=== PATIENT | female | born 1940 | race Caucasian/White ===

== ENCOUNTER → 2016-09-02 | Outpatient (CLI) | payer OTHER ==
[~2016-09-02] MED LIST: ASPI81TA28 PO; CINA0.42 PO; FURO-85 PO; GFNSR600 PO; GLIP10TA9 PO; IPRA1AER2 INH; LEVO125T5 PO; LISI10TA PO; LISI20TA3 PO; LVQ750 PO; METF1000 PO; MULT-506 PO; POTA-327 PO; PRLSR20 PO
--- NOTE | 2016-09-02 12:14 | DIAGNOSTIC IMAGING REPORT ---
VIDEO SWALLOW HISTORY: DYSPHAGIA TECHNIQUE: Video fluoroscopic evaluation of swallowing was performed in the AP and lateral projections by the speech pathology staff. The patient is fed nectar-thick and thin liquid barium, a barium coated wafer, and barium pudding. FLUOROSCOPY TIME: 2.2 minutes. A cine loop submitted. COMPARISON STUDY: None. FINDINGS: There are a few episodes of silent aspiration with the thin liquid barium due to a delay of the hyoid excursion/epiglottic deflection. No additional episodes of aspiration identified with the thicker barium consistencies. IMPRESSION: 1. A few episodes of aspiration with the thin liquid barium only. 2. Please see the speech pathologist report for detailed findings and recommendations. Electronically signed by: Raj Frost M.D. 09/02/2016 12:13 PM Dictated Date/Time: 09/02/2016 12:09 PM
--- NOTE | 2016-09-02 13:25 | SWALLOWING EVALUATION ---
HISTORY: This 75 year-old woman, from, was referred for a VFSS at [facility] in order to rule out aspiration and identify safe consistencies for optimal oral intake. The patient reports that she had an episode several months ago where she felt a burning sensation in her throat that occurred overnight while semi reclined in her recliner chair at home. She has since felt this episode has contributed to issues surrounding her voice and swallowing. She reported she had and ENT consult 2-3 months ago and was diagnosed with laryngitis, but this has not resolved. The patient has a PMH significant for Diabetes, hypertension, sepsis, pneumonia, and uterine cancer. She was also noted to have a mild mandibular tremor. She felt as though this was not normal, but denied feeling cold or anxious. BP was normal and BSGs were taken by Nursing, all WNL. Speech was clear. Currently the patient's diet level is regular. PROCEDURE: The patient was seen in the Radiology Department of [facility] for the VFSS. Cursory examination of the oral cavity revealed adequate dentition. Movement of the articulators was WNL. The patient was seated upright in a wheelchair and was viewed in both the Anterior-Posterior (A-P) and Lateral planes. Volitional phonation exercises completed in the A-P plane revealed bilateral vocal fold movement. Vocal quality was noted to be strained/strangled with a high pitch. Volume overall was low. In the lateral plane, the patient was given the following boluses: 1 tsp. thin liquid barium x 2, single swallow thin liquid barium self-presented from a cup x2, sequential swallows of thin liquid barium self-presented from a straw, 1 tsp. nectar-thick liquid barium, single swallow nectar-thick liquid barium self-presented from a cup, 1 tsp. barium pudding, and 1 club cracker with barium paste. The patient was then repositioned into the A-P plane and given the following boluses: 1 tsp. nectar-thick liquid barium and 1 tsp. barium pudding. RESULTS: Oral Stage: Lip closure was adequate. The patient was able to maintain a cohesive liquid bolus upon command without any lateral or premature spillage. Mastication was mildly slow as was bolus transit. There was retention lining the tongue and palate after the swallow. The initiation of the pharyngeal swallow was delayed, and occurred when the bolus head reached the pyriforms. Pharyngeal Stage: Soft palate elevation was complete. Laryngeal elevation revealed partial superior movement of the thyroid cartilage and partial approximation of the arytenoids to the epiglottic base. Anterior hyoid excursion was partially reduced. Epiglottic deflection was complete. Laryngeal vestibular closure was incomplete as evidenced by a narrow column of contrast being located in the vestibule at the height of the swallow. The pharyngeal stripping wave was present and complete. Pharyngeal contraction was complete. The opening the pharyngoesophageal segment was partially reduced with distention and duration of the opening, with partial bolus flow obstruction. Tongue base retraction was mildly reduced, with a trace column of contrast being located between the tongue base and pharyngeal wall during the swallow. There was a trace retention located in the valleculae and pyriforms after the swallow. Laryngeal penetration was noted with thin liquids. The was an episode of SILENT aspiration below the vocal folds during the bolus hold task and the patient had difficulty generating a throat clear/strong cough to fully clear. There was another episode of SILENT aspiration with serial swallows of thin from a straw, however it is suspected that some of this may be the aspirated liquid that was not fully cleared from the initial episode. No other aspiration was identified. Aspiration is attributed to her delayed swallow reflex. No aspiration noted with small cup sips. Esophageal Stage: Complete esophageal clearance was noted. In the lateral view, there was evidence of a prominent cricopharyngeus impression that is suggestive of reflux. However, reflux was not noted during this study. SUMMARY/RECOMMENDATIONS: This patient presents with mild oral-pharyngeal dysphagia. In addition, it is suspected the patient may have episodes of esophageal dysfunction. The following is recommended: 1. Regular diet and thin liquids. 2. Aspiration precautions, NO straws. Fully upright for meals and for 30 minutes after meals are complete. HOB elevated to 30 degrees at all times, to include while asleep. Stringent oral care to include brushing all surfaces of the mouth and tongue prior to and after each meal, and before bed. 3. Consider a follow up appointment with ENT due to prolonged strained/strangled voice and atypical pitch levels for this patient. 4. Consider home health or outpatient [facility] services for follow through of safe swallow strategies and voice therapy as appropriate per ENT consult. 5. Follow up with PCP. Consider further testing and or medication management with a GI consult for suspected reflux. A summary of the results and recommendations was discussed with the patient and understanding was verbalized immediately following the study. Thank you for referral of this patient. Please contact me at if any additional information is needed.
== END | disposition home or self-care (01) ==
LOC: C.RAD 11:04
PROVIDERS: ATTEND Nurse Practitioner
DX: R13.19 Other dysphagia (principal)

== ENCOUNTER → 2016-10-04 | Day surgery (SDC) | payer OTHER ==
[2016-09-24 10:17] VITALS: Ht 154.9 cm; Wt 90.9 kg
[~2016-10-04] VITALS: Ht 154.9 cm; Wt 90.9 kg
[~2016-10-04] MED LIST changes: +ATROPINE SULFATE 0.1 MG/ML 5ML SYR IV PRN; -CINA0.42 PO; +EpHEDrine SULFATE INJ 50 MG/ML AMP IV PRN; -GFNSR600 PO; -IPRA1AER2 INH; +LEVO125T4 PO; -LEVO125T5 PO; +LIDOCAINE HCL 2% 2 ML VIAL (20MG/ML) ONE; -LISI10TA PO; -LVQ750 PO; -MULT-506 PO; +PROPOFOL IV EMULSION 10 MG/ML 20 ML VIAL IV ONE; +SODIUM CHLORIDE 0.9% 500ML 500 ML IV ONE
--- NOTE | 2016-10-04 09:24 | Endo History and Physical ---
History & Physical Date of Service: Oct 04, 2016. Chief Complaint: Referring Physician: History of Present Illness 76 yo presenting for EGD for hoarseness and one episode of pill getting stuck during swallowing. No GERD symptoms, and normal MBBS Past Medical History Diabetes, Osteoporosis, Arthritis, Hypertension Past Surgical History Hx Cardiac Surgery: No Hx Internal Defibrillator: No Hx Pacemaker: No Hx Abdominal Surgery: Yes (JULIA BSO) Hx of Implantable Prosthesis: No Hx Post-Op Nausea and Vomiting: No Hx Cancer Surgery: No Hx Thoracic Surgery: No Hx Orthopedic: Yes (LT/RT KVNG, LT/RT CTR) Hx Urinary Tract Surgery: No Family History None Social History Smoking Status: Never Smoker Hx Substance Use: No Hx Alcohol Use: No Allergies Coded Allergies: No Known Allergies (Verified , 10/04/16) Current Medications Reported Home Medications Medications Dose Route/Sig Max Daily Dose Days Date Category Dose Instructions Prilosec (Omeprazole) 20 Mg Capcr 20 Mg PO DAILY 09/24/16 Reported NEW MEDICATION - PT HAS NOT STARTED YET Levothyroxine Sodium 125 Mcg Tab 1 Tab PO QAM 09/24/16 Reported Aspirin Ec (Aspirin) 81 Mg Tab 81 Mg PO QAM 09/24/16 Reported Prinivil (Lisinopril) 20 Mg Tab 20 Mg PO QAM 09/24/16 Reported Glucotrol (Glipizide) 10 Mg Tab 0.5 Tab PO BID 08/21/12 Reported TAKE THIS MEDICATION 30 MINUTES BEFORE A MEAL. Glucophage (Metformin Hcl) 1,000 Mg Tab 0.5 Tab PO BID 08/21/12 Reported Lasix (Furosemide) 20 Mg Tab 40 Mg PO QAM PRN 07/13/12 Reported Klor-Con (Potassium Chloride) 10 Meq Tabcr 10 Meq PO DAILY PRN 07/13/12 Reported Vital Signs Weight (Kilograms): 90.91 Height (Feet): 5 Height (Inches): 1 Physical Exam General Appearance: WD/WN Respiratory/Chest: Auscultation: breath sounds normal, CTA except as noted Cardiovascular: Apical Impulse: not displaced Heart Auscultation: RRR, normal S1 Abdomen: Bowel Sounds: normal Inspection & Palpation: soft, non-distended Assessment and Plan Plan for EGD for further evaluation Dilation if necessary
--- NOTE | 2016-10-04 10:07 | GI REPORT ---
Procedure Date: 10/04/2016 9:42 AM Procedure: Upper GI endoscopy Indications: Globus sensation-Hoarseness. Medicines: General Anesthesia Complications: No immediate complications. Estimated blood loss: None. Estimated Blood Loss: Estimated blood loss: none. Procedure: Pre-Anesthesia Assessment: - Pre-Anesthesia Assessment: - Prior to the procedure, a History and Physical was performed, and patient medications, allergies and sensitivities were reviewed. The patient's tolerance of previous anesthesia was reviewed. Please see [employer] for complete details. - The risks and benefits of the procedure and the sedation options and risks were discussed with the patient. All questions were answered and informed consent was obtained. - Patient identification and proposed procedure were verified prior to the procedure by the physician and the nurse. The procedure was verified in the pre-procedure area in the procedure room. After obtaining informed consent, the endoscope was passed carefully and meticuously under direct vision and only advanced when the lumen was clearly identified, C02 insuflation was utilized throughout the entirity of the procedure. Throughout the procedure, the patient's blood pressure, pulse, and oxygen saturations were monitored continuously. After obtaining informed consent, the endoscope was passed under direct vision. Throughout the procedure, the patient's blood pressure, pulse, and oxygen saturations were monitored continuously. The scope was introduced through the mouth, and advanced to the second part of duodenum. The upper GI endoscopy was accomplished without difficulty. The patient tolerated the procedure well. Findings: The nasopharynx was normal. A small hiatus hernia was present. The entire examined stomach was normal. The examined duodenum was normal. Impression: - Normal nasopharynx. - Small hiatus hernia. - Normal stomach. - Normal examined duodenum. - No specimens collected. Recommendation: - Discharge patient to home (with escort). - Return to referring physician as previously scheduled. - Consider Zantac qhs if having morning hoarseness that is worse. - Follow up with ENT for voice eval and videostroboscopy as recommended previously. Wade Weiss MD 10/04/2016 10:07:08 AM This report has been signed electronically. Note Initiated On: 10/04/2016 9:42 AM I attest to the content of the Intraoperative Record and orders documented therein, exceptions below
--- NOTE | 2016-10-04 10:11 | Discharge Instructions ---
Endoscopy Patient Instructions Date / Procedure(s) Performed Oct 04, 2016. EGD Allergy Information Coded Allergies: No Known Allergies (Verified , 10/04/16) Discharge Date / Findings Oct 04, 2016. Normal Exam Normal oropharynx Consider following up with ENT for voice eval and videostroboscopy as previously recommended. Consider Zantac at night Medication Instructions Stopped Medication(s): Aspirin last taken on 10/03/16 Provider Instructions Activity Restrictions - No exercising or heavy lifting for 24 hours. - Do not drink alcohol the day of the procedure. - Do not drive a car or operate machinery until the day after the procedure. - Do not make any important decisions or sign important papers in 24 hours after the procedure. Following Day: - Return to full activity which may include returning to work/school. Diet Start your diet with liquids and light foods (jello, soup, juice, toast). Then eat your usual diet if not nauseated. Treatment For Common After Affects For mild abdominal pain, bloating, or excessive gas: - Rest - Eat lightly - Lie on right side Follow-Up Information Follow-up with [facility] as scheduled Anesthesia Information What You Should Know You have had a procedure that required some medicine to reduce anxiety and discomfort. This treatment is called moderate sedation. After receiving the treatment, you may be sleepy, but you will be able to breathe on your own. The effects of the treatment may last for several hours. Follow these instructions along with Activity/Diet recommendations noted above: * Do NOT do anything where dizziness or clumsiness would be dangerous. * Rest quietly at home today, then you can be up and about tomorrow. * Have a responsible person stay with you the rest of today. * You may have had an I.V. today. If so, you may take the dressing off later today. Recommendations Call your doctor if: * Trouble breathing * Continuous vomiting for more than 24 hours * Temperature above 101 degrees * Severe abdominal pain or bloating * Pain not relieved by pain medicine ordered * There is increased drainage or redness from any incision * A large amount of rectal bleeding greater than 2-3 tablespoons. (If you had a polyp/s removed or have hemorrhoids, a small amount of blood - from the rectum is to be expected.) * You have any unanswered questions or concerns. IN THE EVENT OF A SERIOUS EMERGENCY, GO TO THE NEAREST EMERGENCY ROOM Your discharge instructions were prepared by provider Wade Weiss. Patient Instructions Signature Page Angeline Fagan Patient (or Guardian) Signature/Date: I have read and understand the instructions given to me by my caregivers. Caregiver/RN/Doctor Signature/Date: The above-named patient and/or guardian has received patient instructions on this date. + Original Patient Signature Page (only) stays with chart. Please make copy for patient.
--- NOTE | 2016-10-04 10:11 | Anesthesiology Progress Note ---
Anesthesia Post Op Note Date & Time Oct 04, 2016 at 10:11 Vital Signs Vital Signs Past 12 Hours Date Time Temp Pulse Resp B/P (MAP) Pulse Ox O2 Delivery O2 Flow Rate FiO2 10/04/16 09:30 36.5 70 18 138/66 (90) 99 Room Air Notes Mental Status: alert / awake / arousable, participated in evaluation Pt Amnestic to Procedure: Yes Nausea / Vomiting: adequately controlled Pain: adequately controlled Airway Patency, RR, SpO2: stable & adequate BP & HR: stable & adequate Hydration State: stable & adequate Anesthetic Complications: no major complications apparent
[2016-10-04 10:59] VITALS: BP 144/67; PULSE 70; O2SAT 97
== END | disposition home or self-care (01) ==
LOC: C.GI 08:02
PROVIDERS: ATTEND Internal Medicine
DX: R49.0 Dysphonia (principal); R13.10 Dysphagia, unspecified; K44.9 Diaphragmatic hernia without obstruction or gangrene; E11.9 Type 2 diabetes mellitus without complications; M81.0 Age-related osteoporosis without current pathological fracture; M19.90 Unspecified osteoarthritis, unspecified site; I10 Essential (primary) hypertension; Z79.82 Long term (current) use of aspirin; Z79.84 Long term (current) use of oral hypoglycemic drugs; Z90.710 Acquired absence of both cervix and uterus; Z96.643 Presence of artificial hip joint, bilateral; E78.5 Hyperlipidemia, unspecified; K21.9 Gastro-esophageal reflux disease without esophagitis; E03.9 Hypothyroidism, unspecified; E66.9 Obesity, unspecified; Z92.21 Personal history of antineoplastic chemotherapy; Z98.41 Cataract extraction status, right eye; Z98.42 Cataract extraction status, left eye; Z85.9 Personal history of malignant neoplasm, unspecified

== ENCOUNTER 2019-06-20 12:45 | Inpatient (IN) ==
--- NOTE | 2019-06-20 12:53 | Emergency Department Note ---
History of Present Illness General Chief complaint: Shortness of Breath/Dyspnea Source: patient and EMS Mode of arrival: EMS Limitations: altered mental status History of Present Illness This [facility] I did talk to them upon arrival. She typically does not wear oxygen. She had a bronchitis type picture and developed a right lower lobe pneumonia according to EMS they start her on oxygen at 3 L. When they arrived they increased her oxygen and now she is in the mid 90s and does not appear to be any distress she has had some baseline dementia and is unable to answer questions related to that. No fall or trauma. There is been no travel or any known food exposure however they did do coag te sting which is pending. Other history is not reliably obtainable Home Medications Home Medications Medication Instructions Recorded Confirmed Type aspirin 81 mg PO QAM 02/03/18 06/20/19 History furosemide 20 mg PO BID 02/03/18 06/20/19 History glipizide 10 mg PO TIDM 02/03/18 06/20/19 History lisinopril 10 mg PO QAM 02/03/18 06/20/19 History magnesium oxide 400 mg PO QAM 02/03/18 06/20/19 History omeprazole 20 mg PO QAM 02/03/18 06/20/19 History acetaminophen [Tylenol] 650 mg PO BID 06/20/19 06/20/19 History acetaminophen [Tylenol] 650 mg PO QID PRN 06/20/19 06/20/19 History azithromycin [Zithromax] 500 mg PO DAILY@0130 06/20/19 06/20/19 History baclofen 5 mg PO BID 06/20/19 06/20/19 History cholecalciferol (vitamin D3) 125 mcg PO QAM 06/20/19 06/20/19 History [Vitamin D3] dextromethorphan-guaifenesin 10 ml PO Q6H PRN 06/20/19 06/20/19 History famotidine 20 mg PO HS 06/20/19 06/20/19 History levothyroxine 150 mcg PO QAM 06/20/19 06/20/19 History loratadine [Claritin] 10 mg PO HS 06/20/19 06/20/19 History multivit,stress formula-zinc 1 tab PO QAM 06/20/19 06/20/19 History [Stress Formula with Zinc] sennosides-docusate sodium 1 tab-cap PO BID 06/20/19 06/20/19 History [Senna-S] sitagliptin [Januvia] 25 mg PO QAM 06/20/19 06/20/19 History sodium chloride [Saline Nasal Mist] 2 spray INTRANASAL QID 06/20/19 06/20/19 History Allergies Allergy/AdvReac Type Severity Reaction Status Date / Time No Known Allergies Allergy Intermediate Verified 01/30/18 10:04 Past Med/Surg History Medical History Alzheimer's dementia (Chronic) Chronic venous stasis dermatitis of both lower extremities CKD (chronic kidney disease) stage 3, GFR 30-59 ml/min Dementia Diabetes (Chronic) H/O kidney disease (Chronic) Hypertension (Chronic) Hypothyroid (Chronic) Morbid obesity Surgical History History of hip surgery (Chronic) b/l KVNG History of hysterectomy S/P carpal tunnel release (Chronic) S/P hernia repair (Chronic) Family History Other Family history non-contributory Social History Preferred Language: Uzbek Communication Ability: Effective Visual Impairment: Limited Hearing Ability: Normal Child Nutrition Director Required: No Beliefs That Will Affect Care: None marital status: Current Living Situation: Alone Current Living Situation Comment: Health aide 3x/wk; daughter frequently stops in current occupational status: retired Feels Safe at Home: Yes Smoking Status: Unknown if ever smoked Hx Alcohol Use: No Hx Substance Use: No Review of Systems Unobtainable due to cognitive status Physical Exam Vital Signs Vital Signs - 24 hr 06/20/19 12:50 06/20/19 13:15 06/20/19 13:30 Temperature 36.3 C L Temperature Source Oral Pulse Rate 89 105 H 71 Pulse Rate from SpO2 Sensor 73 Pulse Rhythm Regular Pulse Strength Normal Respiratory Rate 24 24 24 Respiratory Effort / Characteristics Non-Labored Spontaneous Respiratory Depth Normal Respiratory Pattern Regular Blood Pressure 116/86 116/86 Blood Pressure Mean 96 96 Pulse Oximetry 94 90 94 Oxygen Delivery Method Nasal Cannula Oxygen Flow Rate 6 4 Fraction of Inspired Oxygen 4 Sepsis Recent Fever Within 48 Hours No Sepsis New/Unexplained Change in Mental Status No Sepsis Action Taken by Nursing No Action Required 06/20/19 14:15 06/20/19 14:30 06/20/19 14:45 Temperature Temperature Source Pulse Rate 100 H 92 H 73 Pulse Rate from SpO2 Sensor 73 Pulse Rhythm Pulse Strength Respiratory Rate 21 24 22 Respiratory Effort / Characteristics Respiratory Depth Respiratory Pattern Blood Pressure Blood Pressure Mean Pulse Oximetry 94 98 100 Oxygen Delivery Method Oxygen Flow Rate 4 4 4 Fraction of Inspired Oxygen Sepsis Recent Fever Within 48 Hours Sepsis New/Unexplained Change in Mental Status Sepsis Action Taken by Nursing 06/20/19 15:00 06/20/19 15:15 06/20/19 15:30 Temperature Temperature Source Pulse Rate 70 97 H 97 H Pulse Rate from SpO2 Sensor Pulse Rhythm Pulse Strength Respiratory Rate 18 22 23 Respiratory Effort / Characteristics Respiratory Depth Respiratory Pattern Blood Pressure 111/64 Blood Pressure Mean 73 Pulse Oximetry 96 94 90 Oxygen Delivery Method Oxygen Flow Rate 4 4 4 Fraction of Inspired Oxygen Sepsis Recent Fever Within 48 Hours Sepsis New/Unexplained Change in Mental Status Sepsis Action Taken by Nursing 06/20/19 15:39 06/20/19 15:40 06/20/19 15:45 Temperature Temperature Source Pulse Rate 95 H 86 98 H Pulse Rate from SpO2 Sensor 97 H 88 99 H Pulse Rhythm Pulse Strength Respiratory Rate 20 25 H 24 Respiratory Effort / Characteristics Respiratory Depth Respiratory Pattern Blood Pressure 119/79 Blood Pressure Mean 94 Pulse Oximetry 94 95 95 Oxygen Delivery Method Oxygen Flow Rate 4 4 4 Fraction of Inspired Oxygen Sepsis Recent Fever Within 48 Hours Sepsis New/Unexplained Change in Mental Status Sepsis Action Taken by Nursing 06/20/19 16:01 06/20/19 16:30 06/20/19 16:45 Temperature Temperature Source Pulse Rate 100 H 88 97 H Pulse Rate from SpO2 Sensor 85 92 H Pulse Rhythm Pulse Strength Respiratory Rate 18 17 16 Respiratory Effort / Characteristics Respiratory Depth Respiratory Pattern Blood Pressure 124/66 126/77 Blood Pressure Mean 81 92 Pulse Oximetry 94 91 89 L Oxygen Delivery Method Oxygen Flow Rate 2 2 2 Fraction of Inspired Oxygen Sepsis Recent Fever Within 48 Hours Sepsis New/Unexplained Change in Mental Status Sepsis Action Taken by Nursing 06/20/19 17:00 06/20/19 17:15 06/20/19 17:30 Temperature Temperature Source Pulse Rate 95 H Pulse Rate from SpO2 Sensor 104 H 95 H Pulse Rhythm Pulse Strength Respiratory Rate 19 Respiratory Effort / Characteristics Respiratory Depth Respiratory Pattern Blood Pressure 131/92 Blood Pressure Mean 103 Pulse Oximetry 90 91 90 Oxygen Delivery Method Oxygen Flow Rate 2 2 Fraction of Inspired Oxygen Sepsis Recent Fever Within 48 Hours Sepsis New/Unexplained Change in Mental Status Sepsis Action Taken by Nursing 06/20/19 17:45 06/20/19 18:00 06/20/19 18:01 Temperature Temperature Source Pulse Rate Pulse Rate from SpO2 Sensor 76 91 H 78 Pulse Rhythm Pulse Strength Respiratory Rate Respiratory Effort / Characteristics Respiratory Depth Respiratory Pattern Blood Pressure 98/51 L Blood Pressure Mean 64 Pulse Oximetry 88 L 92 94 Oxygen Delivery Method Oxygen Flow Rate 2 Fraction of Inspired Oxygen 2 Sepsis Recent Fever Within 48 Hours Sepsis New/Unexplained Change in Mental Status Sepsis Action Taken by Nursing 06/20/19 18:15 06/20/19 18:30 Temperature Temperature Source Pulse Rate Pulse Rate from SpO2 Sensor 72 68 Pulse Rhythm Pulse Strength Respiratory Rate Respiratory Effort / Characteristics Respiratory Depth Respiratory Pattern Blood Pressure 120/65 Blood Pressure Mean 80 Pulse Oximetry 91 95 Oxygen Delivery Method Oxygen Flow Rate 2 2 Fraction of Inspired Oxygen Sepsis Recent Fever Within 48 Hours Sepsis New/Unexplained Change in Mental Status Sepsis Action Taken by Nursing General: Well developed well nourished chronically ill-appearing older female who appears in no acute distress, breathing comfortably on room air. Normal speech HEENT: Normal cephalic atraumatic. Pupils are equal round and reactive to light. Sclera are anicteric extraocular movements are intact. Oropharynx is pink with moist mucous membranes. No swelling of the mouth lips or tongue. Neck: Supple with a midline trachea. No meningeal signs or stiffness, no JVD or bruits. No Stridor. Chest: Clear to auscultation bilaterally as per EMS no wheezes or rhonchi. No i ncreased work of breathing. Heart: Regular rate and rhythm without murmurs or gallops. Abdomen: Soft nontender, nondistended without rebound guarding or rigidity. Extremities: No cyanosis clubbing or edema. No calf tenderness or assymetry Spine/Back. Non tender to palpation. No CVA tenderness Skin: Good turgor without rashes. Neurologic exam: Cranial nerves two through 12 are intact. Motor and sensation are intact and symmetrical throughout. Course Administered Medications Discontinued Medications Acetaminophen (Tylenol) 500 mg PO NOW STA Stop: 06/20/19 17:02 Last Admin: 06/20/19 17:19 Dose: 500 mg Documented by: [id number] Sodium Chloride (Nss 1000ml) 1,000 mls @ 999 mls/hr IV .Q1H1M ONE Stop: 06/20/19 17:01 Last Infusion: 06/20/19 17:19 Dose: 0 mls/hr Documented by: [id number] Admin: 06/20/19 16:25 Dose: 999 mls/hr Documented by: [id number] Cefepime HCl (Maxipime) 2,000 mg in 20 mls @ 5 mls/min IV NOW STA; Protocol Stop: 06/20/19 16:04 Last Admin: 06/20/19 16:25 Dose: 5 mls/min Documented by: [id number] Medical Decision Making Differential Diagnosis Differential diagnosis includes sepsis, pneumonia, CHF, bronchitis, coronavirus, cardiac disease, electrolyte or metabolic abnormality Medical Records Attestation: I reviewed the patient's medical records. Home Medications Current Medication List: was personally reviewed by me Laboratory Data Attestation: I reviewed the patient's lab results. Result diagrams: 06/20/19 14:56 06/20/19 14:56 Lab Results 06/20/19 06/20/19 06/20/19 Range/Units 13:25 14:22 14:56 WBC 27.44 H (4.8-10.8) K/uL RBC 3.94 L (4.2-5.4) M/uL Hgb 12.3 (12.0-16.0) g/dL Hct 37.3 (37-47) % MCV 94.7 (80-100) fL MCH 31.2 (25-34) pg MCHC 33.0 (32-36) g/dL RDW Std Deviation 50.0 H (36.4-46.3) fL RDW Coeff of [place] 14.6 H (11.5-14.5) % Plt Count 233 (130-400) K/uL MPV 11.4 H (7.4-10.4) fL Immature Gran % (Auto) 0.4 % Neut % (Auto) 83.3 % Lymph % (Auto) 11.9 % [place] % (Auto) 3.9 % Eos % (Auto) 0.4 % Baso % (Auto) 0.1 % Immature Gran # (Auto) 0.12 H (0.00-0.02) K/uL Neut # (Auto) 22.84 H (1.4-6.5) K/uL Lymph # (Auto) 3.27 (1.2-3.4) K/uL [place] # (Auto) 1.07 H (0.11-0.59) K/uL Eos # (Auto) 0.10 (0-0.5) K/uL Baso # (Auto) 0.04 (0-0.2) K/uL Dohle Bodies 1+ PT 11.6 (9.0-12.0) Seconds INR 1.1 (0.9-1.1) APTT 26.1 (21.0-31.0) Seconds PTT Ratio 0.9 Sodium (136-145) mmol/L Potassium (3.5-5.1) mmol/L Chloride (98-107) mmol/L Carbon Dioxide (21-32) mmol/L Anion Gap (3-11) BUN (7-18) mg/dl Creatinine (0.6-1.2) mg/dl Est Cr Clr Drug Dosing Est GFR ( Amer) Est GFR (Non-Af Amer) BUN/Creatinine Ratio (10-20) Glucose (70-99) mg/dl Lactate (0.4-2.0) mmol/L Calcium (8.5-10.1) mg/dl Magnesium (1.8-2.4) mg/dl Total Bilirubin (0.2-1) mg/dl AST (15-37) U/L ALT (12-78) U/L Alkaline Phosphatase (45-117) U/L Total Protein (6.4-8.2) gm/dl Albumin (3.4-5.0) gm/dl Globulin (2.5-4.0) gm/dl Albumin/Globulin Ratio (0.9-2) Urine Color Dark Yellow Urine Appearance Clear (Clear) Urine pH 5.0 (4.5-7.5) Ur Specific [place] 1.022 (1.000-1.030) Urine Protein Negative (Negative) Urine Glucose (UA) Negative (Negative) Urine Ketones Trace H (Negative) Urine Blood Negative (Negative) Urine Nitrite Negative (Negative) Urine Bilirubin Negative (Negative) Urine Urobilinogen Negative (Negative) Ur Leukocyte Esterase Trace H (Negative) Urine WBC (Auto) 1-5 (0-5) /hpf Urine RBC (Auto) 0-4 (0-4) /hpf U Hyaline Cast (Auto) 5-10 H (0-5) /lpf U Epithel Cells (Auto) 5-10 H (0-5) /lpf Urine Bacteria (Auto) Negative (Negative) 06/20/19 06/20/19 Range/Units 14:56 14:56 WBC (4.8-10.8) K/uL RBC (4.2-5.4) M/uL Hgb (12.0-16.0) g/dL Hct (37-47) % MCV (80-100) fL MCH (25-34) pg MCHC (32-36) g/dL RDW Std Deviation (36.4-46.3) fL RDW Coeff of [place] (11.5-14.5) % Plt Count (130-400) K/uL MPV (7.4-10.4) fL Immature Gran % (Auto) % Neut % (Auto) % Lymph % (Auto) % [place] % (Auto) % Eos % (Auto) % Baso % (Auto) % Immature Gran # (Auto) (0.00-0.02) K/uL Neut # (Auto) (1.4-6.5) K/uL Lymph # (Auto) (1.2-3.4) K/uL [place] # (Auto) (0.11-0.59) K/uL Eos # (Auto) (0-0.5) K/uL Baso # (Auto) (0-0.2) K/uL Dohle Bodies PT (9.0-12.0) Seconds INR (0.9-1.1) APTT (21.0-31.0) Seconds PTT Ratio Sodium 156 H* (136-145) mmol/L Potassium 3.2 L (3.5-5.1) mmol/L Chloride 127 H (98-107) mmol/L Carbon Dioxide 23 (21-32) mmol/L Anion Gap 6.0 (3-11) BUN 125 H (7-18) mg/dl Creatinine 2.85 H (0.6-1.2) mg/dl Est Cr Clr Drug Dosing Not Reportable Est GFR ( Amer) 17.6 Est GFR (Non-Af Amer) 15.2 BUN/Creatinine Ratio 43.9 H (10-20) Glucose 220 H (70-99) mg/dl Lactate 1.5 (0.4-2.0) mmol/L Calcium 10.8 H (8.5-10.1) mg/dl Magnesium 2.7 H (1.8-2.4) mg/dl Total Bilirubin 0.8 (0.2-1) mg/dl AST 19 (15-37) U/L ALT 58 (12-78) U/L Alkaline Phosphatase 119 H (45-117) U/L Total Protein 7.8 (6.4-8.2) gm/dl Albumin 2.9 L (3.4-5.0) gm/dl Globulin 4.9 H (2.5-4.0) gm/dl Albumin/Globulin Ratio 0.6 L (0.9-2) Urine Color Urine Appearance (Clear) Urine pH (4.5-7.5) Ur Specific [place] (1.000-1.030) Urine Protein (Negative) Urine Glucose (UA) (Negative) Urine Ketones (Negative) Urine Blood (Negative) Urine Nitrite (Negative) Urine Bilirubin (Negative) Urine Urobilinogen (Negative) Ur Leukocyte Esterase (Negative) Urine WBC (Auto) (0-5) /hpf Urine RBC (Auto) (0-4) /hpf U Hyaline Cast (Auto) (0-5) /lpf U Epithel Cells (Auto) (0-5) /lpf Urine Bacteria (Auto) (Negative) ECG Data Attestation: I personally reviewed and interpreted this ECG as follows: Indication: + SOB/dyspnea Rate (beats per minute): 94 Rhythm: + normal sinus ECG [place]: + Left axis deviation ECG ST segments: + T-wave inversions (lat t wave changes) ECG Findings: no PACs and no Trigeminy Comparison ECG Date: from (02/03/18) Change: the following changes noted (lat t wave inversions are now present) MDM Narrative This patient comes in as described above. She has had some respiratory symptoms with increased oxygen demand. I did a full sepsis work-up. She has covid testing that is pending however given her situation I think the chance is very small. Given the fact that this was pending I did continue her on airborne isolation. Chest x-ray does suggest infiltrates in the bilateral lower lobes. Sides being mildly hypoxemic she is otherwise stable. Her white count came back significantly elevated. She also has an elevated sodium and elevated BUN and creatinine I think is dry. She was given a liter normal saline bolus IV. Her lactic acid is not elevated. She has taken azithromycin already today which will give atypical coverage. She was given cefepime 2 g IV. I do think she needs to be admitted/observed. Her white count came back significantly elevated. Her BUN and creatinine also elevated as is her sodium and I think she is likely clinically dry. She was given IV normal saline bolus. Her lactic acid is not elevated. I did discuss this with the [facility] team and they will see her in the ER for these measures community health advisor note: The patient shortness of breath he she was maintained on a armature connector during her stay. She was noted to be in a sinus tachycardia with a rate of 105. She was noted to be in normal sinus rhythm/sinus tach during her stay Impression & Plan Pneumonia, SOB (shortness of breath), Dementia, Acute dehydration, Acute hypernatremia, Sepsis, Hx of sinus tachycardia Discharge Plan Visit Data Chief Complaint: Shortness of Breath/Dyspnea ED Provider: Humberto [place] Discharge Problem: Pneumonia, SOB (shortness of breath), Dementia, Acute dehydration, Acute hypernatremia, Sepsis, Hx of sinus tachycardia Forms Stand Alone Forms: [facility] Class[facility] Prescriptions Prescriptions: No Action glipizide 10 mg tablet 10 mg PO TIDM RF: 0 aspirin 81 mg Tablet,Delayed Release (Dr/Ec) 81 mg PO QAM RF: 0 magnesium oxide 400 mg (241.3 mg magnesium) Tablet 400 mg PO QAM RF: 0 lisinopril 10 mg tablet 10 mg PO QAM RF: 0 omeprazole 20 mg capsule,delayed release(DR/EC) 20 mg PO QAM RF: 0 furosemide 20 mg tablet 20 mg PO BID RF: 0 acetaminophen [Tylenol] 325 mg Tablet 650 mg PO QID PRN (Reason: Pain Scale 1-4) RF: 0 acetaminophen [Tylenol] 325 mg Tablet 650 mg PO BID RF: 0 dextromethorphan-guaifenesin 10-100 mg/5 mL Liquid 10 ml PO Q6H PRN (Reason: Cough) RF: 0 sennosides-docusate sodium [Senna-S] 8.6-50 mg Tablet 1 tab-cap PO BID RF: 0 famotidine 20 mg Tablet 20 mg PO HS RF: 0 baclofen 10 mg Tablet 5 mg PO BID RF: 0 levothyroxine 150 mcg tablet 150 mcg PO QAM RF: 0 loratadine [Claritin] 10 mg Tablet 10 mg PO HS RF: 0 azithromycin [Zithromax] 500 mg Tablet 500 mg PO DAILY@0130 RF: 0 sodium chloride [Saline Nasal Mist] 0.65 % Aerosol,[place] 2 spray INTRANASAL QID RF: 0 Januvia 25 mg Tablet 25 mg PO QAM RF: 0 cholecalciferol (vitamin D3) [Vitamin D3] 125 mcg (5,000 unit) Tablet 125 mcg PO QAM RF: 0 Stress Formula with Zinc Tablet 1 tab PO QAM RF: 0 Discharge Problem: Pneumonia Qualifiers: Pneumonia type: due to unspecified organism Laterality: bilateral Lung location: lower lobe of lung Qualified Code(s): J18.9 - Pneumonia, unspecified organism Dementia Qualifiers: Dementia type: Alzheimer's disease Alzheimer's disease onset: unspecified onset Dementia behavioral disturbance: without behavioral disturbance Qualified Code(s): G30.9 - Alzheimer's disease, unspecified Sepsis Qualifiers: Sepsis type: sepsis due to unspecified organism Sepsis acute organ dysfunction status: unspecified Qualified Code(s): A41.9 - Sepsis, unspecified organism
--- NOTE | 2019-06-20 13:40 | XRay Report ---
XR chest 1V portable CLINICAL HISTORY: SEPSIS COMPARISON STUDY: 02/03/2018 FINDINGS: The heart is borderline enlarged. There are bilateral lower lung zone airspace opacities, p neumonia versus atelectasis.. Clinical and radiographic follow-up is recommended.[There are no pleura l effusions. There is no failure. IMPRESSION: 1. Bilateral lower lung zone airspace opacities. Pneumonia favored over atelectasis given the history of sepsis. Clinical and radiographic follow-up is recommended. ACT 112: Negative or not required by law. Electronically signed by: Bernardo Colby M.D. 06/20/2019 1:38 PM
[2019-06-20 13:56] LABS: Appearance Urine Clear (Clear); Bacteria Urine Automated Negative (Negative); Blood Urine Negative (Negative); Color Urine Dark Yellow; Glucose Urine UA Negative (Negative); Ketones Urine Trace (Negative); Leukocyte Esterase Urine Trace (Negative); Nitrite Urine Negative (Negative); Protein Urine Negative (Negative); RBC Urine Automated 0-4 /hpf (0-4); Specific Gravity Urine 1.022 (1.000-1.030); Urobilinogen Urine Negative (Negative)
[2019-06-20 13:58] LABS: Bilirubin Urine Negative (Negative); Ictotest Urine Negative (Negative)
[2019-06-20 15:03] LABS: INR 1.1 (0.9-1.1); Partial Thromboplastin Ratio 0.9; Partial Thromboplastin Time 26.1 Seconds (21.0-31.0); Prothrombin Time 11.6 Seconds (9.0-12.0)
[2019-06-20 15:51] LABS: Alanine Aminotransferase 58 U/L (12-78); Albumin Globulin Ratio 0.6 (0.9-2); Albumin Level 2.9 gm/dl (3.4-5.0); Alkaline Phosphatase 119 U/L (45-117); Aspartate Aminotransferase 19 U/L (15-37); BUN Creatinine Ratio 43.9 (10-20); Bilirubin,Total 0.8 mg/dl (0.2-1); Blood Urea Nitrogen 125 mg/dl (7-18); Calcium 10.8 mg/dl (8.5-10.1); Carbon Dioxide 23 mmol/L (21-32); Chloride 127 mmol/L (98-107); Est GFR (African American) 17.6; Est GFR (Non-African American) 15.2; Globulin 4.9 gm/dl (2.5-4.0); Glucose 220 mg/dl (70-99); Magnesium 2.7 mg/dl (1.8-2.4); Potassium 3.2 mmol/L (3.5-5.1); Sodium 156 mmol/L (136-145); Total Protein 7.8 gm/dl (6.4-8.2)
[2019-06-20 15:53] LABS: Hematocrit (blood only) 37.3 % (37-47); Hemoglobin 12.3 g/dL (12.0-16.0); Mean Corpuscular Hemoglobin 31.2 pg (25-34); Mean Corpuscular Volume 94.7 fL (80-100); Mean Platelet Volume 11.4 fL (7.4-10.4); Platelet Count 233 K/uL (130-400); RDW Coefficient of Variation 14.6 % (11.5-14.5); Red Blood Count 3.94 M/uL (4.2-5.4); White Blood Count 27.44 K/uL (4.8-10.8)
[2019-06-20] MEDS ORDERED: CEFEPIME 2,000 MG/20 ML VIAL IV STA (16:01)
[2019-06-20] MEDS ORDERED: SODIUM CHLORIDE 0.9% 1000ML 1,000 ML IV ONE (16:01)
[2019-06-20] MEDS ORDERED: ACETAMINOPHEN 500 MG TAB PO STA (17:01)
[2019-06-20 17:14] LABS: Basophils % (auto) 0.1 %; Eosinophils % (auto) 0.4 %; Immature Granulocytes % (auto) 0.4 %; Lymphocytes % (auto) 11.9 %; Monocytes % (auto) 3.9 %; Neutrophils % (auto) 83.3 %
--- NOTE | 2019-06-20 17:14 | History & Physical Report ---
Date of Service June 20, 2019 Assessment & Plan (1) Sepsis: Healthcare associated pneumonia Acute respiratory failure with hypoxia Sepsis CXR:Bilateral lower lung zone airspace opacities. Pneumonia favored over atelectasis given the history of sepsis. Clinical and radiographic follow-up is recommended. Lactate: normal Procalcitonin: pending Influenza screen negative Blood Cultures: Pending Start broad spectrum IV Antibiotics (Doxycycline and Zosyn) Check MRSA screen SARS-CoV-2: pending Oxygen support, Duonebs as needed Start IV fluids Aspiration precautions Trend lactate levels Hypernatremia Hypokalemia Likely secondary to poor oral intake--dehydration Replace potassium supplement Monitor sodium levels Started on 03/15 NSS Nephrology consulted Acute Kidney Injury on CKD III Baseline Cr ~ 1.5 Cr:2.85 Hold lisinopril, Lasix Monitor renal function Continue IV fluids Nephrology consulted DM II Last A1C: 6.4 Update A1c Hold p.o. meds Continue insulin sliding scale, Lantus Monitor blood glucose levels Hypertension BP stable Hold blood pressure medications secondary to sepsis/ZULMA for now Alzheimer's dementia Nonverbal at baseline Hypothyroidism Continue levothyroxine Chronic venous stasis dermatitis GERD Continue home meds DVT Px: Heparin SQ Code Status DNI/DNR as per my discussion with patient's daughter-POA Patient preferred to be DNI DNR on multiple occasions in the past as per patient's daughter. Disposition PT/OT prior to discharge Case management consult for discharge planning History of Present Illness Chief Complaint: Cough Primary Care Provider: [facility] [place] [facility] Patient is a 78-year-old female with history of DM, hypertension, Alzheimer's dementia, hypothyroidism, CKD III, chronic venous stasis dermatitis, GERD and other problems presents with history of productive cough, nausea, vomiting. Patient is a phasic at baseline. History could not be obtained from the patient. Most of the history is obtained from [facility], ER physician and old records. As per staff from [facility], patient has been not feeling well since last 2 weeks. She was initially thought to have bronchitis and completed Levaquin 750 mg for 5 days 10 days ago. Patient was also diagnosed to have E. coli UTI and was treated with Macrobid recently. Outpatient chest x-ray suggestive of pneumonia, and was started on azithromycin yesterday. Covered screen is pending. Patient was noted to be hypoxic--88% on room air. She was noted to be hyponatremic with sodium level 156. Also noted to have acute kidney injury with creatinine levels elevated at 2.85. Patient has been having very poor appetite since last 2 weeks. She was started on pured diet with nectar thick liquids today. No known history of chest pain, recent travel, sick contact. Allergies Allergy/AdvReac Type Severity Reaction Status Date / Time No Known Allergies Allergy Intermediate Verified 01/30/18 10:04 Home Medications Home Medications Medication Instructions Recorded Confirmed Type aspirin 81 mg PO QAM 02/03/18 06/20/19 History furosemide 20 mg PO BID 02/03/18 06/20/19 History glipizide 10 mg PO TIDM 02/03/18 06/20/19 History lisinopril 10 mg PO QAM 02/03/18 06/20/19 History magnesium oxide 400 mg PO QAM 02/03/18 06/20/19 History omeprazole 20 mg PO QAM 02/03/18 06/20/19 History acetaminophen [Tylenol] 650 mg PO BID 06/20/19 06/20/19 History acetaminophen [Tylenol] 650 mg PO QID PRN 06/20/19 06/20/19 History azithromycin [Zithromax] 500 mg PO DAILY@0130 06/20/19 06/20/19 History baclofen 5 mg PO BID 06/20/19 06/20/19 History cholecalciferol (vitamin D3) 125 mcg PO QAM 06/20/19 06/20/19 History [Vitamin D3] dextromethorphan-guaifenesin 10 ml PO Q6H PRN 06/20/19 06/20/19 History famotidine 20 mg PO HS 06/20/19 06/20/19 History levothyroxine 150 mcg PO QAM 06/20/19 06/20/19 History loratadine [Claritin] 10 mg PO HS 06/20/19 06/20/19 History multivit,stress formula-zinc 1 tab PO QAM 06/20/19 06/20/19 History [Stress Formula with Zinc] sennosides-docusate sodium 1 tab-cap PO BID 06/20/19 06/20/19 History [Senna-S] sitagliptin [Januvia] 25 mg PO QAM 06/20/19 06/20/19 History sodium chloride [Saline Nasal Mist] 2 spray INTRANASAL QID 06/20/19 06/20/19 History Past Med/Surg History Medical History Alzheimer's dementia (Chronic) Chronic venous stasis dermatitis of both lower extremities CKD (chronic kidney disease) stage 3, GFR 30-59 ml/min Dementia Diabetes (Chronic) H/O kidney disease (Chronic) Hypertension (Chronic) Hypothyroid (Chronic) Morbid obesity Surgical History History of hip surgery (Chronic) b/l KVNG History of hysterectomy S/P carpal tunnel release (Chronic) S/P hernia repair (Chronic) Family History Other Family history non-contributory Social History Preferred Language: Arabic Communication Ability: Effective Visual Impairment: Limited Hearing Ability: Normal Mail Order Biller Required: No Beliefs That Will Affect Care: None marital status: Current Living Situation: Alone Current Living Situation Comment: Health aide 3x/wk; daughter frequently stops in current occupational status: retired Feels Safe at Home: Yes Smoking Status: Unknown if ever smoked Hx Alcohol Use: No Hx Substance Use: No Review of Systems Review of Systems: Unobtainable secondary to patient's aphasia Physical Exam Physical Exam: Physical Exam: Vitals signs as noted above General Appearance:Moderately built and nourished, no apparent distress, chronic ill appearing Head: normocephalic, Atraumatic Eyes: normal inspection, EOMI Neck: supple, Trachea midline Respiratory/Chest: Normal breath sounds, CTA, No accessory muscle use Cardiovascular: S1, S2, No murmur Abdomen/GI:Soft, Non tender, Bowel sounds present Extremities/Musculoskelatal:normal inspection, no edema, chronic venous stasis changes Neurologic/Psych:grossly no focal neurological deficits, aphasic Skin: normal color, warm Results & Data Results & Data ([facility]) Vital Signs (Past 12 Hours) Vital Signs Temp Pulse Resp BP Pulse Ox 06/20/19 16:30 88 17 126/77 91 06/20/19 16:01 100 H 18 124/66 94 06/20/19 15:45 98 H 24 95 06/20/19 15:40 86 25 H 95 06/20/19 15:39 95 H 20 119/79 94 06/20/19 15:30 97 H 23 90 06/20/19 15:15 97 H 22 94 06/20/19 15:00 70 18 111/64 96 06/20/19 14:45 73 22 100 06/20/19 14:30 92 H 24 98 06/20/19 14:15 100 H 21 94 06/20/19 13:30 71 24 94 06/20/19 13:15 36.3 C L 105 H 24 116/86 90 06/20/19 12:50 89 24 116/86 94 Laboratory Results Short CBC 06/20/19 Range/Units 14:56 WBC 27.44 H (4.8-10.8) K/uL Hgb 12.3 (12.0-16.0) g/dL Hct 37.3 (37-47) % Plt Count 233 (130-400) K/uL BMP 06/20/19 14:56 Sodium 156 H* Potassium 3.2 L Chloride 127 H Carbon Dioxide 23 BUN 125 H Creatinine 2.85 H Glucose 220 H Calcium 10.8 H Liver Function 06/20/19 Range/Units 14:56 Total Bilirubin 0.8 (0.2-1) mg/dl AST 19 (15-37) U/L ALT 58 (12-78) U/L Alkaline Phosphatase 119 H (45-117) U/L Albumin 2.9 L (3.4-5.0) gm/dl Urine 06/20/19 Range/Units 13:25 Urine Color Dark Yellow Urine Appearance Clear (Clear) Urine pH 5.0 (4.5-7.5) Ur Specific [place] 1.022 (1.000-1.030) Urine Protein Negative (Negative) Urine Glucose (UA) Negative (Negative) Diagnostic Findings CXR:Bilateral lower lung zone airspace opacities. Pneumonia favored over atelectasis given the history of sepsis. Clinical and radiographic follow-up is recommended. ECG Additional Comments: EKG: NSR, nonspecific ST-T wave changes (1) Sepsis Sepsis acute organ dysfunction status: unspecified Sepsis type: sepsis due to unspecified organism Qualified Code(s): A41.9 - Sepsis, unspecified organism
[2019-06-20 17:15] LABS: Basophils # (auto) 0.04 K/uL (0-0.2); Immature Granulocytes # (auto) 0.12 K/uL (0.00-0.02); Lymphocytes # (auto) 3.27 K/uL (1.2-3.4); Monocytes # (auto) 1.07 K/uL (0.11-0.59); Neutrophils # (auto) 22.84 K/uL (1.4-6.5)
[2019-06-20 17:17] LABS: Dohle Bodies 1+
[2019-06-20] MEDS ORDERED: ALBUT/IPRATROP 3MG/0.5MG NEB 3 ML VIAL NEB PRN (20:47)
[2019-06-20] MEDS ORDERED: ONDANSETRON INJ 2 MG/ML 2 ML VIAL IV PRN (20:47)
[2019-06-20] MEDS ORDERED: CONSULT PHARMACY STA (20:47)
[2019-06-20] MEDS ORDERED: GLUCOSE 10 TABS/TUBE PO PRN (20:47)
[2019-06-20] MEDS ORDERED: POTASSIUM CHLORIDE 20 MEQ/15 ML UDC PO STA (20:47)
[2019-06-20] MEDS ORDERED: POLYETHYLENE (MIRALAX) 17 GM PACK PO PRN (20:47)
[2019-06-20] MEDS ORDERED: GLUCAGON FOR INJ 1 MG VIAL SQ PRN (20:47)
[2019-06-20] MEDS ORDERED: GLUCOSE 40% GEL 15 GM TUBE PO PRN (20:47)
[2019-06-20] MEDS ORDERED: DEXTROSE 50% 50 ML SYRINGE IV PRN (20:47)
[2019-06-20] MEDS ORDERED: CARBOHYDRATES FOR HYPOGLYCEMIA PO PRN (20:47)
[2019-06-20] MEDS ORDERED: ACETAMINOPHEN 325 MG TAB PO PRN (20:47)
[2019-06-20] MEDS ORDERED: PIPERACILL/TAZOBAC CONSULT ACTIVE PRN (20:58)
[2019-06-20] MEDS ORDERED: [UNRECOGNIZED DRUG - OTHER] PRN (20:59)
[2019-06-20] MEDS ORDERED: DOXYCYCLINE HYCLATE 100 MG in DEXTROSE 5% 100 ML IV SCH (21:00)
[2019-06-20] MEDS ORDERED: PIPERACILLIN/TAZOBACTAM 3.375 GM in DEXTROSE 5% 100 ML IV ONE (21:15)
[2019-06-20] MEDS ORDERED: PATIENT'S HEIGHT AND/OR WEIGHT NEEDED SCH (21:15)
[2019-06-20] MEDS ORDERED: GUAIFENESIN/DEXTROM SYRUP 200MG/20MG 10ML UDC PO PRN (21:26)
[2019-06-20] MEDS: HEPARIN SOD 5,000 UNIT/0.5 ML VIAL SQ SCH (22:10)
[2019-06-20] MEDS: INSULIN ASPART 100 UNITS/ML 3 ML PEN SC SCH (22:10)
[2019-06-20] MEDS: INSULIN GLARGINE SOLOSTAR 100 UNITS/ML 3 ML PEN SC SCH (22:11)
[2019-06-20 22:23] LABS: Troponin I 0.128 ng/ml (0-0.045)
[2019-06-20] MEDS: SODIUM CHLOR 0.45% + 20MEQ KCL 20 MEQ/1,000 ML BAG IV SCH (22:24)
[2019-06-20] MEDS: BACLOFEN 10 MG TAB PO SCH (22:24)
[2019-06-20] MEDS: DOCUSATE SODIUM/SENNA 50/8.6MG TAB PO SCH (22:26)
[2019-06-20] MEDS: LORATADINE 10 MG TAB PO SCH (22:27)
[2019-06-20] MEDS: SODIUM CHLORIDE 0.65% NA SOLN 45 ML (OCEAN) SCH (22:28)
[2019-06-20] MEDS: FAMOTIDINE 20 MG TAB PO SCH (22:28)
[2019-06-20] MEDS: DOXYCYCLINE HYCLATE 100 MG in DEXTROSE 5% 100 ML IV SCH (23:13)
[2019-06-21] MEDS ORDERED: PIPERACILLIN/TAZOBACTAM 3.375 GM in DEXTROSE 5% 100 ML IV SCH (04:00)
[2019-06-21] MEDS: LEVOTHYROXINE SODIUM 150 MCG TABLET PO SCH (05:07)
[2019-06-21 07:35] LABS: Hematocrit (blood only) 33.5 % (37-47); Mean Corpuscular Hemoglobin 30.9 pg (25-34); Mean Corpuscular Hgb Conc 32.8 g/dL (32-36); Mean Corpuscular Volume 94.1 fL (80-100); Mean Platelet Volume 11.2 fL (7.4-10.4); Platelet Count 222 K/uL (130-400); RDW Coefficient of Variation 14.6 % (11.5-14.5); RDW Standard Deviation 49.9 fL (36.4-46.3); Red Blood Count 3.56 M/uL (4.2-5.4); White Blood Count 23.71 K/uL (4.8-10.8)
[2019-06-21 07:58] LABS: Basophils # (auto) 0.03 K/uL (0-0.2); Basophils % (auto) 0.1 %; Eosinophils # (auto) 0.29 K/uL (0-0.5); Eosinophils % (auto) 1.2 %; Immature Granulocytes # (auto) 0.11 K/uL (0.00-0.02); Immature Granulocytes % (auto) 0.5 %; Lymphocytes # (auto) 1.73 K/uL (1.2-3.4); Lymphocytes % (auto) 7.3 %; Microcytosis Present; Monocytes # (auto) 1.91 K/uL (0.11-0.59); Monocytes % (auto) 8.1 %; Neutrophils # (auto) 19.64 K/uL (1.4-6.5); Neutrophils % (auto) 82.8 %
[2019-06-21 08:10] LABS: BUN Creatinine Ratio 58.4 (10-20); Calcium 10.5 mg/dl (8.5-10.1); Creatinine Clr Calc Pharmacy 23.4 ml/min; Est GFR (African American) 29.9; Est GFR (Non-African American) 25.8; Magnesium 2.3 mg/dl (1.8-2.4); Troponin I 0.086 ng/ml (0-0.045)
[2019-06-21] MEDS: INSULIN ASPART 100 UNITS/ML 3 ML PEN SC SCH ×4 (08:40→18:33)
[2019-06-21] MEDS: INSULIN GLARGINE SOLOSTAR 100 UNITS/ML 3 ML PEN SC SCH ×2 (08:40→20:25)
[2019-06-21] MEDS: DOCUSATE SODIUM/SENNA 50/8.6MG TAB PO SCH ×2 (08:43→20:27)
[2019-06-21] MEDS: BACLOFEN 10 MG TAB PO SCH ×2 (08:43→20:26)
[2019-06-21] MEDS: DOXYCYCLINE HYCLATE 100 MG in DEXTROSE 5% 100 ML IV SCH ×2 (08:44→20:25)
[2019-06-21] MEDS: MAGNESIUM OXIDE 400 MG TAB PO SCH (08:44)
[2019-06-21] MEDS: PANTOprazole 40 MG TAB PO SCH (08:44)
[2019-06-21] MEDS: ASPIRIN 81 MG ECTAB PO SCH (08:44)
[2019-06-21] MEDS ORDERED: POTASSIUM CHLORIDE 20 MEQ/15 ML UDC PO STA (09:02)
[2019-06-21] MEDS: HEPARIN SOD 5,000 UNIT/0.5 ML VIAL SQ SCH ×2 (09:19→20:26)
[2019-06-21] MEDS: SODIUM CHLORIDE 0.65% NA SOLN 45 ML (OCEAN) SCH ×4 (09:20→20:27)
[2019-06-21 10:09] LABS: Estimated Average Glucose 160 mg/dl; Hemoglobin A1C 7.2 % (4.5-5.6)
--- NOTE | 2019-06-21 10:48 | Electrocardiogram Report ---
Test Reason : Blood Pressure : / mmHG Vent. Rate : 094 BPM Atrial Rate : 094 BPM P-R Int : 174 ms QRS Dur : 076 ms QT Int : 380 ms P-R-T Axes : 051 -10 051 degrees QTc Int : 475 ms Poor data quality, interpretation may be adversely affected Normal sinus rhythm Low voltage QRS Possible Inferior infarct (cited on or before 03-FEB-2018) Cannot rule out Anterior infarct , age undetermined Abnormal ECG When compared with ECG of 03-FEB-2018 12:08, Minimal criteria for Anterior infarct are now Present T wave inversion more evident in Inferior leads T wave inversion now evident in Lateral leads Confirmed by Dwight Odonnell ([id number]) on 06/21/2019 10:47:40 AM [facility], [place] Confirmed By:Dwight Odonnell
[2019-06-21] MEDS ORDERED: Nursing to Pharmacy Communication ONE ×2 (11:05→16:56)
[2019-06-21] MEDS: POTASSIUM CHLORIDE 20 MEQ in DEXTROSE 5% 1,000 ML IV SCH ×2 (11:41→20:25)
[2019-06-21] MEDS: POTASSIUM CHLORIDE / WTR 10 MEQ/100 ML PLCT IV SCH ×4 (11:41→15:16)
--- NOTE | 2019-06-21 12:35 | Consultation Report ---
DATE OF CONSULTATION: 06/21/2019 NEPHROLOGY CONSULTATION REASON FOR CONSULT: Acute renal failure and hypernatremia. HISTORY OF PRESENT ILLNESS: The patient is a 78-year-old female with advanced Alzheimer's dementia, who is a resident of a detention, was sent over to the Emergency Department yesterday because of productive cough, nausea and vomiting. The patient is nonverbal at baseline and unable to obtain any history from the patient. According to the medical record available, the patient has not been feeling well for the last 2 weeks. She was initially thought to have bronchitis and completed the Levaquin for 5 days, but did not really get better. The patient was also diagnosed with recent E. coli UTI and was treated with Macrobid recently. Outpatient x-ray was done and was suggestive of pneumonia and was started on Zithromax just yesterday. The patient was also noted to be hypoxic on room air. Blood work done in the Emergency Department was significant for hypernatremia with a serum sodium of 156 and acute renal failure with a creatinine of 2.85 from a baseline kidney function which is fairly normal with a creatinine of 1.41 as of 04/2019. Since admission, the patient initially received normal saline bolus in the Emergency Department followed by half normal saline, which she is still getting. Potassium has also been low. She is making urine, but is incontinent. She is also being ruled out for COVID pneumonia, but the test result is pending at this time. REVIEW OF SYSTEMS: Unable to obtain directly from the patient. Based on the record, the patient has cough, shortness of breath, increasing weakness, fatigue, decreasing appetite, lethargy, urinary burning and recent infection, weight loss, nausea but no vomiting or diarrhea, off and on fever unless stated, other systems negative. PAST MEDICAL AND SURGICAL HISTORY: Alzheimer's dementia, chronic venous stasis of both lower extremities, chronic kidney disease with a more recent baseline creatinine of around 1.4, dementia, chronic diabetes, hypertension, hypothyroidism, obesity, long-term resident of detention, hip surgery, hysterectomy, carpal tunnel release, hernia repair. FAMILY HISTORY: Negative for renal disease or dialysis. SOCIAL HISTORY: The patient is at [facility]. No smoking, alcohol. PHYSICAL EXAMINATION: GENERAL: Elderly white female who is not in any overt respiratory distress. She is advancedly demented and is nonverbal, unable to have any meaningful conversation from the patient. HEENT: Normocephalic, atraumatic. Mucous membrane is moist. NECK: Supple. No jugular venous distention. RESPIRATORY: Decreased breath sounds, poor inspiratory effort, so very limited exam. CARDIOVASCULAR: S1 and S2 regular. No murmur. ABDOMEN: Soft, nontender. EXTREMITIES: Shows no edema. Chronic venous stasis changes noted on the skin. SKIN: Normal color, warm. No rash noted. LABORATORY TESTS: From this morning showed a serum sodium of 158, potassium was 3.0, chloride 132, BUN 107, creatinine is 1.84. Hemoglobin A1c 7.2, calcium 10.5. Most of the lab parameters have improved compared to the time of admission except serum sodium which has actually gone up from 156 to 158. Chest x-ray showed bilateral lower lung zone opacities suggestive of pneumonia. Hemoglobin 11.0, WBC count 23,000, platelet count 222. Urine test shows negative blood, negative protein. ASSESSMENT AND PLAN: A 78-year-old female with advanced Alzheimer dementia and a long-term resident of detention, admitted with respiratory tract infection symptoms for the last few weeks and now presenting with acute renal failure and hypernatremia for which I have been consulted. 1. Acute renal failure. This appears prerenal in etiology secondary to very poor oral intake for the last few weeks as well as evidence of dehydration with serum sodium being 158. With the use of IV fluid, renal function has started to get better. Both BUN and creatinine has come down, which is encouraging. She is making urine, although not exactly known about the amount. I would continue with IV fluid; however, I would change the fluid as discussed below. No further workup is needed for the etiology of the acute renal failure. Continue to avoid DENNYS inhibitor, ARB, nephrotoxic agents including contrast agent and NSAIDs. 2. Hypernatremia. By definition, this is volume depletion and free water deficit. Given that serum sodium has changed from 156 to 158, we will change the fluid to D5 water at 100 mL per hour. Daily labs and not frequent as we need to avoid frequent interaction with the patient who is still being ruled out for COVID. 3. Hypokalemia. We will add potassium 40 mEq in the dextrose water as well as give oral potassium as much as she can handle. She has problem with swallowing and high risk of aspiration, so we might have to give potassium intravenously. However, her overall renal problems are not difficult to manage, but given her advanced dementia, consideration should be made about the level of care we are going to provide in the coming days. Thank you very much. YOLANDA
--- NOTE | 2019-06-21 12:37 | Electrocardiogram Report ---
Test Reason : Blood Pressure : / mmHG Vent. Rate : 080 BPM Atrial Rate : 080 BPM P-R Int : 172 ms QRS Dur : 086 ms QT Int : 420 ms P-R-T Axes : 006 -14 054 degrees QTc Int : 484 ms Normal sinus rhythm Low voltage QRS Old Inferior infarct (cited on or before 03-FEB-2018) Poor R wave progression, consider anterior VA vs. lead placement vs. LVH Abnormal ECG When compared with ECG of 20-JUN-2019 13:15, T wave inversion no longer evident in Lateral leads Confirmed by Rhett Plunkett ([id number]) on 06/21/2019 12:37:06 PM [facility] Confirmed By:Rhett Plunkett
[2019-06-21] MEDS: SODIUM CHLOR 0.45% + 20MEQ KCL 20 MEQ/1,000 ML BAG IV SCH (13:03)
--- NOTE | 2019-06-21 15:15 | Hospitalist Progress Note ---
Date of Service June 21, 2019 Assessment & Plan (1) Sepsis: Healthcare associated pneumonia Acute respiratory failure with hypoxia Sepsis Possible Gram negative pneumonia Vs. Aspiration pneumonia in setting of HCAP Possible COVID-19 infection to be ruled out CXR:Bilateral lower lung zone airspace opacities. Pneumonia favored over atelectasis given the history of sepsis. Clinical and radiographic follow-up is recommended. Lactate: normal Procalcitonin: 0.34 Influenza screen negative Negative MRSA screen Blood Cultures: Negative to date Continue IV Doxycycline and Zosyn Day #2 SARS-CoV-2: pending Oxygen support, Duonebs as needed Continue IV fluids Aspiration precautions Trend lactate levels Keep her NPO until Speech Eval Speech therapy consulted Hypernatremia Hypokalemia Likely secondary to poor oral intake--dehydration Replace potassium supplements as needed Monitor sodium levels Continue D5W at 100/hr Appreciate Nephrology Input Acute Kidney Injury on CKD III Baseline Cr ~ 1.5 Cr:2.85>>>1.84 Hold lisinopril, Lasix Monitor renal function Continue IV fluids DM II Last A1C: 6.4 Updated A1c:7.2 Hold p.o. meds Continue insulin sliding scale, Lantus Monitor blood glucose levels Hypertension BP stable Hold blood pressure medications for now Alzheimer's dementia Nonverbal at baseline Hypothyroidism Continue levothyroxine Chronic venous stasis dermatitis GERD Continue home meds DVT Px: Heparin SQ Code Status DNI/DNR as per my discussion with patient's daughter-POA Patient preferred to be DNI DNR on multiple occasions in the past as per patient's daughter. Disposition PT/OT prior to discharge Case management consult for discharge planning Admission and Anticipated Discharge Date Admission Date: June 20, 2019 Subjective Patient is seen and examined at bedside History id limited due to Aphasia/dementia RN noticed that patient is pocketing food Has Cough Denies any chest pain, SOB No distress on exam Review of Systems Review of Systems: Other Aphasia/Dementia Physical Exam Physical Exam: Physical Exam: Vitals signs as noted above General Appearance:Moderately built and nourished, no apparent distress, chronic ill appearing Head: normocephalic, Atraumatic Eyes: normal inspection, EOMI Neck: supple, Trachea midline Respiratory/Chest: Decreased breath sounds, scattered rhonchi at bases Cardiovascular: S1, S2, No murmur Abdomen/GI:Soft, Non tender, Bowel sounds present Extremities/Musculoskelatal:normal inspection, no edema, chronic venous stasis changes Neurologic/Psych:grossly no focal neurological deficits, aphasic Skin: normal color, warm Results & Data Results & Data ([facility]) Vital Signs (Past 12 Hours) Vital Signs Temp Pulse Pulse Resp BP Pulse Ox 06/21/19 11:32 37.2 C 77 18 110/70 92 06/21/19 09:30 66 06/21/19 08:42 36.7 C 80 18 107/69 95 06/21/19 08:11 36.5 C 84 18 119/68 99 Laboratory Results Short CBC 06/20/19 06/21/19 Range/Units 14:56 07:17 WBC 27.44 H 23.71 H (4.8-10.8) K/uL Hgb 12.3 11.0 L (12.0-16.0) g/dL Hct 37.3 33.5 L (37-47) % Plt Count 233 222 (130-400) K/uL BMP 06/20/19 06/21/19 14:56 07:17 Sodium 156 H* 158 H* Potassium 3.2 L 3.0 L Chloride 127 H 132 H Carbon Dioxide 23 23 BUN 125 H 107 H Creatinine 2.85 H 1.84 H D Glucose 220 H 210 H Calcium 10.8 H 10.5 H Cardiac Enzymes 06/20/19 06/21/19 06/21/19 Range/Units 21:34 07:17 11:01 Total Creatine Kinase 46 (26-192) U/L Troponin I 0.128 H* 0.086 H* 0.070 H* (0-0.045) ng/ml Liver Function 06/20/19 Range/Units 14:56 Total Bilirubin 0.8 (0.2-1) mg/dl AST 19 (15-37) U/L ALT 58 (12-78) U/L Alkaline Phosphatase 119 H (45-117) U/L Albumin 2.9 L (3.4-5.0) gm/dl (1) Sepsis Sepsis acute organ dysfunction status: unspecified Sepsis type: sepsis due to unspecified organism Qualified Code(s): A41.9 - Sepsis, unspecified organism
[2019-06-21] MEDS: PIPERACILLIN/TAZOBACTAM 3.375 GM in DEXTROSE 5% 100 ML IV SCH (18:27)
[2019-06-21] MEDS: LORATADINE 10 MG TAB PO SCH (20:26)
[2019-06-21] MEDS: FAMOTIDINE 20 MG TAB PO SCH (20:27)
[2019-06-22] MEDS: INSULIN ASPART 100 UNITS/ML 3 ML PEN SC SCH ×4 (00:48→18:45)
[2019-06-22] MEDS: PIPERACILLIN/TAZOBACTAM 3.375 GM in DEXTROSE 5% 100 ML IV SCH ×3 (00:49→18:52)
[2019-06-22] MEDS: LEVOTHYROXINE SODIUM 150 MCG TABLET PO SCH (05:36)
[2019-06-22] MEDS: DOCUSATE SODIUM/SENNA 50/8.6MG TAB PO SCH ×2 (07:17→20:45)
[2019-06-22] MEDS: PANTOprazole 40 MG TAB PO SCH (07:17)
[2019-06-22] MEDS: MAGNESIUM OXIDE 400 MG TAB PO SCH (07:17)
[2019-06-22] MEDS: BACLOFEN 10 MG TAB PO SCH ×2 (07:17→20:45)
[2019-06-22] MEDS: ASPIRIN 81 MG ECTAB PO SCH (07:17)
[2019-06-22 07:22] LABS: Basophils # (auto) 0.04 K/uL (0-0.2); Basophils % (auto) 0.2 %; Eosinophils # (auto) 0.65 K/uL (0-0.5); Eosinophils % (auto) 3.2 %; Hemoglobin 11.6 g/dL (12.0-16.0); Immature Granulocytes # (auto) 0.21 K/uL (0.00-0.02); Lymphocytes # (auto) 2.56 K/uL (1.2-3.4); Lymphocytes % (auto) 12.5 %; Mean Corpuscular Hemoglobin 30.9 pg (25-34); Mean Corpuscular Hgb Conc 33.1 g/dL (32-36); Mean Corpuscular Volume 93.3 fL (80-100); Mean Platelet Volume 11.2 fL (7.4-10.4); Monocytes # (auto) 1.74 K/uL (0.11-0.59); Monocytes % (auto) 8.5 %; Neutrophils # (auto) 15.35 K/uL (1.4-6.5); Neutrophils % (auto) 74.6 %; Platelet Count 227 K/uL (130-400); RDW Coefficient of Variation 14.5 % (11.5-14.5); RDW Standard Deviation 49.4 fL (36.4-46.3); Red Blood Count 3.75 M/uL (4.2-5.4); White Blood Count 20.55 K/uL (4.8-10.8)
[2019-06-22 07:52] LABS: Calcium 10.4 mg/dl (8.5-10.1); Creatinine Clr Calc Pharmacy 33.1 ml/min; Est GFR (African American) 44.7; Est GFR (Non-African American) 38.5
[2019-06-22] MEDS: DOXYCYCLINE HYCLATE 100 MG in DEXTROSE 5% 100 ML IV SCH ×2 (08:27→22:24)
[2019-06-22] MEDS: INSULIN GLARGINE SOLOSTAR 100 UNITS/ML 3 ML PEN SC SCH ×2 (08:36→21:29)
[2019-06-22] MEDS: HEPARIN SOD 5,000 UNIT/0.5 ML VIAL SQ SCH ×2 (08:36→21:23)
[2019-06-22] MEDS: SODIUM CHLORIDE 0.65% NA SOLN 45 ML (OCEAN) SCH ×4 (08:40→21:25)
[2019-06-22] MEDS: POTASSIUM CHLORIDE 20 MEQ in DEXTROSE 5% 1,000 ML IV SCH ×2 (08:42→18:52)
[2019-06-22] MEDS ORDERED: Nursing to Pharmacy Communication ONE (08:43)
--- NOTE | 2019-06-22 13:53 | Progress Notes ---
DATE: 06/22/2019 NEPHROLOGY PROGRESS NOTE SUBJECTIVE: The patient is nonverbal and aphasic, cannot obtain any history from the patient. The patient is incontinent. She is not eating or drinking anything. She is on IV fluid, and serum sodium and renal function is getting better. OBJECTIVE: VITAL SIGNS: Blood pressure 94/63, pulse rate 56 per minute, temperature 36.5, 94% on room air. HEENT: Mucous membrane is moist. NECK: Supple. No jugular venous distention. CHEST: Bilaterally clear to auscultation. CARDIOVASCULAR: S1 and S2, regular. ABDOMEN: Soft, nontender. EXTREMITIES: Show no edema. LABORATORY TEST: From this morning was reviewed and shows slight improvement in the renal labs, serum sodium 152, BUN 58, creatinine 1.32, glucose is still acceptable, calcium 10.4. Hemoglobin 11.6, WBC count 20,000. ASSESSMENT AND PLAN: A 78-year-old white female with advanced dementia, presented to the hospital with pneumonia-like symptoms and was found to have acute renal failure as well as hypernatremia. Acute renal failure is prerenal in etiology and is improving with the use of IV fluid. She is making urine, although the amount is not accurately measured. Hypernatremia, by definition, this is volume depletion and free water deficit. With the use of D5 water, it is improving and it will continue to improve. I would continue with the same for at least 1 more day. MTDD
--- NOTE | 2019-06-22 17:30 | Hospitalist Progress Note ---
Date of Service June 22, 2019 Assessment & Plan (1) Sepsis: Healthcare associated pneumonia Acute respiratory failure with hypoxia Sepsis Possible Gram negative pneumonia Vs. Aspiration pneumonia in setting of HCAP Possible COVID-19 infection to be ruled out CXR:Bilateral lower lung zone airspace opacities. Pneumonia favored over atelectasis given the history of sepsis. Clinical and radiographic follow-up is recommended. Lactate: normal Procalcitonin: 0.34 Influenza screen negative Negative MRSA screen Blood Cultures: Negative to date Continue IV Doxycycline and Zosyn Day #3 SARS-CoV-2: Negative Oxygen support, Duonebs as needed Continue IV fluids Aspiration precautions Trend lactate levels Keep her NPO Speech therapy evaluated Saturating well on room air Hypernatremia Hypokalemia Secondary to poor oral intake--dehydration Replace potassium supplements as needed Monitor sodium levels Continue D5W at 100/hr Appreciate Nephrology Input Sodium levels Improving Acute Kidney Injury on CKD III Baseline Cr ~ 1.5 Cr:2.85>>>1.84>>1.32 Hold lisinopril, Lasix for now Monitor renal function Continue IV fluids Urinary Retention Bladder Scan PRN DM II Last A1C: 6.4 Updated A1c:7.2 IV fluids also contributing to hyperglycemia Hold p.o. meds Continue insulin sliding scale, Lantus Monitor blood glucose levels Hypertension BP stable Hold blood pressure medications for now Alzheimer's dementia Nonverbal at baseline Hypothyroidism Continue levothyroxine Chronic venous stasis dermatitis GERD Continue home meds DVT Px: Heparin SQ Code Status DNI/DNR as per my discussion with patient's daughter-POA Patient preferred to be DNI DNR on multiple occasions in the past as per patient's daughter. Disposition PT/OT prior to discharge Case management consult for discharge planning Admission and Anticipated Discharge Date Admission Date: June 20, 2019 Subjective Patient is seen and examined at bedside History is limited due to Aphasia/dementia Drowsy, no distress during my exam this AM Has Cough Denies any chest pain, SOB Plan to keep her NPO for now Had Urinary Retention--Notified by group social worker of Systems Review of Systems: All systems reviewed & are unremarkable except as noted in HPI & below and Other Aphasia, Dementia Physical Exam Physical Exam: Physical Exam: Vitals signs as noted above General Appearance:Moderately built and nourished, no apparent distress, chronic ill appearing Head: normocephalic, Atraumatic Eyes: normal inspection, EOMI Neck: supple, Trachea midline Respiratory/Chest: Decreased breath sounds, CTA Cardiovascular: S1, S2, No murmur Abdomen/GI:Soft, Non tender, Bowel sounds present Extremities/Musculoskelatal:normal inspection, no edema, chronic venous stasis changes Neurologic/Psych:grossly no focal neurological deficits, aphasic Skin: normal color, warm Results & Data Results & Data ([facility]) Vital Signs (Past 12 Hours) Vital Signs Temp Pulse Resp BP Pulse Ox 06/22/19 15:03 36.8 C 71 18 115/67 96 06/22/19 11:49 36.5 C 56 L 16 94/63 L 94 06/22/19 10:20 68 100/60 96 06/22/19 07:13 37 C 81 18 112/75 93 Laboratory Results Short CBC 06/22/19 Range/Units 06:47 WBC 20.55 H (4.8-10.8) K/uL Hgb 11.6 L (12.0-16.0) g/dL Hct 35.0 L (37-47) % Plt Count 227 (130-400) K/uL BMP 06/22/19 06:47 Sodium 152 H Potassium 4.0 D Chloride 126 H Carbon Dioxide 19 L BUN 58 H Creatinine 1.32 H D Glucose 212 H Calcium 10.4 H (1) Sepsis Sepsis acute organ dysfunction status: unspecified Sepsis type: sepsis due to unspecified organism Qualified Code(s): A41.9 - Sepsis, unspecified organism
[2019-06-22] MEDS: LORATADINE 10 MG TAB PO SCH (20:45)
[2019-06-22] MEDS: FAMOTIDINE 20 MG in SYRINGE 3 ML IV SCH (21:26)
[2019-06-22] MEDS ORDERED: ACETAMINOPHEN 1,000 MG/100 ML VIAL IV PRN (22:15)
[2019-06-23] MEDS: INSULIN ASPART 100 UNITS/ML 3 ML PEN SC SCH ×4 (00:13→18:42)
[2019-06-23] MEDS: PIPERACILLIN/TAZOBACTAM 3.375 GM in DEXTROSE 5% 100 ML IV SCH ×3 (02:01→17:18)
[2019-06-23] MEDS: POTASSIUM CHLORIDE 20 MEQ in DEXTROSE 5% 1,000 ML IV SCH ×2 (05:32→14:37)
[2019-06-23 06:44] LABS: Hematocrit (blood only) 34.1 % (37-47); Hemoglobin 11.5 g/dL (12.0-16.0); Mean Corpuscular Hemoglobin 31.5 pg (25-34); Mean Corpuscular Hgb Conc 33.7 g/dL (32-36); Mean Corpuscular Volume 93.4 fL (80-100); Mean Platelet Volume 10.7 fL (7.4-10.4); Nucleated RBC # (auto) 0.03 K/uL (0-0); Nucleated RBC % (auto) 0.2 %; Platelet Count 207 K/uL (130-400); RDW Coefficient of Variation 14.1 % (11.5-14.5); RDW Standard Deviation 48.4 fL (36.4-46.3); Red Blood Count 3.65 M/uL (4.2-5.4); White Blood Count 15.98 K/uL (4.8-10.8)
[2019-06-23 07:20] LABS: BUN Creatinine Ratio 36.4 (10-20); Calcium 10.2 mg/dl (8.5-10.1); Est GFR (African American) 60.3; Potassium 3.8 mmol/L (3.5-5.1)
[2019-06-23] MEDS: DOXYCYCLINE HYCLATE 100 MG in DEXTROSE 5% 100 ML IV SCH ×2 (08:46→22:32)
[2019-06-23] MEDS: BACLOFEN 10 MG TAB PO SCH ×2 (08:51→20:38)
[2019-06-23] MEDS: DOCUSATE SODIUM/SENNA 50/8.6MG TAB PO SCH ×2 (08:51→20:38)
[2019-06-23] MEDS: ASPIRIN 81 MG ECTAB PO SCH (08:51)
[2019-06-23] MEDS: MAGNESIUM OXIDE 400 MG TAB PO SCH (08:51)
[2019-06-23] MEDS: FAMOTIDINE 20 MG in SYRINGE 3 ML IV SCH ×2 (09:07→20:36)
[2019-06-23] MEDS: SODIUM CHLORIDE 0.65% NA SOLN 45 ML (OCEAN) SCH ×4 (09:07→20:38)
[2019-06-23] MEDS ORDERED: INSULIN ASPART 100 UNITS/ML 3 ML PEN SC SCH (10:00)
[2019-06-23] MEDS: LEVOTHYROXINE SODIUM 75 MCG in SYRINGE 0 ML IV SCH (10:04)
[2019-06-23] MEDS: HEPARIN SOD 5,000 UNIT/0.5 ML VIAL SQ SCH ×2 (10:04→20:39)
[2019-06-23] MEDS: INSULIN GLARGINE SOLOSTAR 100 UNITS/ML 3 ML PEN SC SCH ×3 (10:05→20:39)
--- NOTE | 2019-06-23 11:53 | Hospitalist Progress Note ---
Date of Service June 23, 2019 Assessment & Plan (1) Sepsis: Healthcare associated pneumonia Acute respiratory failure with hypoxia Sepsis Possible Gram negative pneumonia Vs. Aspiration pneumonia in setting of HCAP Possible COVID-19 infection to be ruled out CXR:Bilateral lower lung zone airspace opacities. Pneumonia favored over atelectasis given the history of sepsis. Clinical and radiographic follow-up is recommended. Lactate: normal Procalcitonin: 0.34 Influenza screen negative Negative MRSA screen Blood Cultures: Negative to date Continue IV Doxycycline and Zosyn Day #4 SARS-CoV-2: Negative Oxygen support, Duonebs as needed Continue IV fluids Aspiration precautions Trend lactate levels Keep her NPO as recommended by Speech therapy Saturating well on room air Need to consider PPN Dysphagia Has been progressively worsening since 2 yrs as per family NPO for now Speech therapy on board Hypernatremia Hypokalemia Secondary to poor oral intake--dehydration Replace potassium supplements as needed Monitor sodium levels: 156>>152>>146 Continue D5W at 100/hr Appreciate Nephrology Input Sodium levels Improved Acute Kidney Injury on CKD III Baseline Cr ~ 1.5 Cr:2.85>>>1.84>>1.32>>1.03 Hold lisinopril, Lasix for now Monitor renal function Cr back to baseline Urinary Retention Bladder Scan PRN Straight Cath PRN DM II Last A1C: 6.4 Updated A1c:7.2 IV fluids also contributing to hyperglycemia Hold p.o. meds Continue insulin sliding scale, Lantus Monitor blood glucose levels Hypertension BP stable Hold blood pressure medications for now Alzheimer's dementia Nonverbal at baseline Hypothyroidism Continue levothyroxine Chronic venous stasis dermatitis GERD Continue home meds DVT Px: Heparin SQ Code Status DNI/DNR as per my discussion with patient's daughter-POA Patient preferred to be DNI DNR on multiple occasions in the past as per patient's daughter. Disposition PT/OT prior to discharge Case management consult for discharge planning Admission and Anticipated Discharge Date Admission Date: June 20, 2019 Subjective Patient is seen and examined at bedside History is limited due to Aphasia/dementia Low grade fever today Has cough Speech Therapy recommends to continue NPO status Patient lethargic Review of Systems Review of Systems: Unobtainable due to reduced consciousness Physical Exam Physical Exam: Physical Exam: Vitals signs as noted above General Appearance:Moderately built and nourished, no apparent distress, chronic ill appearing Head: normocephalic, Atraumatic Eyes: normal inspection, EOMI Neck: supple, Trachea midline Respiratory/Chest: Decreased breath sounds, basal crackles Cardiovascular: S1, S2, No murmur Abdomen/GI:Soft, Non tender, Bowel sounds present Extremities/Musculoskelatal:normal inspection, no edema, chronic venous stasis changes Neurologic/Psych:grossly no focal neurological deficits, aphasic, lethargic Skin: normal color, warm Results & Data Results & Data ([facility]) Vital Signs (Past 12 Hours) Vital Signs Temp Pulse Pulse Resp BP BP Pulse Ox 06/23/19 07:40 69 06/23/19 07:16 37.8 C H 67 20 111/74 96 06/23/19 03:10 36.9 C 71 20 115/72 96 06/23/19 00:30 44 L Laboratory Results Short CBC 06/23/19 Range/Units 06:29 WBC 15.98 H (4.8-10.8) K/uL Hgb 11.5 L (12.0-16.0) g/dL Hct 34.1 L (37-47) % Plt Count 207 (130-400) K/uL BMP 06/23/19 06:29 Sodium 146 H Potassium 3.8 Chloride 119 H Carbon Dioxide 22 BUN 38 H Creatinine 1.03 Glucose 151 H Calcium 10.2 H (1) Sepsis Sepsis acute organ dysfunction status: unspecified Sepsis type: sepsis due to unspecified organism Qualified Code(s): A41.9 - Sepsis, unspecified organism
[2019-06-23] MEDS ORDERED: FIBERSOURCE HN 1.2 CAL 1000 ML BAG NG SCH ×2 (13:15)
[2019-06-23] MEDS ORDERED: TPN/PPN CONSULT PHARMACY PRN (14:46)
--- NOTE | 2019-06-23 16:05 | Progress Notes ---
DATE: 06/23/2019 SUBJECTIVE: The patient is nonverbal and aphasic, cannot obtain any history from the patient. The patient is incontinent. She is not eating or drinking anything. She is on D5 water and with that serum sodium and renal function is getting better. OBJECTIVE: VITAL SIGNS: Blood pressure is 116/75, 71 per minute pulse rate, afebrile, 95% on room air. HEENT: Mucous membranes moist. NECK: Supple. No jugular venous distention. CHEST: Bilateral decreased breath sounds, but very poor inspiratory effort. CARDIOVASCULAR: S1, S2 regular. ABDOMEN: Soft, nontender. EXTREMITIES: Shows no edema. LABORATORY TESTS: From this morning was reviewed and shows WBC count of 16,000, platelet count 207. Sodium is better at 146, chloride is 119, BUN 38, creatinine is down to 1.03, calcium is down to 10.2. ASSESSMENT AND PLAN: A 78-year-old white female with dementia, presented to the hospital with pneumonia-like symptoms and was found to have acute renal failure as well as hypernatremia. 1. Acute renal failure. Pure prerenal in etiology and is improving rapidly with the use of IV fluid. She is also making increasing amount of urine, although the amount is not accurately measured. Continue D5 water with potassium as is being done at 100 mL per hour. She is not eating or drinking anything at this time. 2. Hypernatremia. By definition, this is volume depletion and free water deficit and is getting better with the use of the current IV fluid. Continue same. At this time, I will sign off from the patient. Please call if any new issues. QUENTIND
[2019-06-23] MEDS: LORATADINE 10 MG TAB PO SCH (20:38)
[2019-06-24] MEDS: INSULIN ASPART 100 UNITS/ML 3 ML PEN SC SCH ×4 (00:54→21:45)
[2019-06-24] MEDS: POTASSIUM CHLORIDE 20 MEQ in DEXTROSE 5% 1,000 ML IV SCH ×2 (01:43→08:59)
[2019-06-24] MEDS: PIPERACILLIN/TAZOBACTAM 3.375 GM in DEXTROSE 5% 100 ML IV SCH ×3 (01:43→18:10)
[2019-06-24 05:24] LABS: Hematocrit (blood only) 34.5 % (37-47); Hemoglobin 11.5 g/dL (12.0-16.0); Mean Corpuscular Hemoglobin 30.7 pg (25-34); Mean Corpuscular Hgb Conc 33.3 g/dL (32-36); Mean Platelet Volume 10.9 fL (7.4-10.4); Platelet Count 202 K/uL (130-400); RDW Coefficient of Variation 13.9 % (11.5-14.5); RDW Standard Deviation 45.6 fL (36.4-46.3); Red Blood Count 3.75 M/uL (4.2-5.4); White Blood Count 16.44 K/uL (4.8-10.8)
[2019-06-24 05:47] LABS: BUN Creatinine Ratio 29.8 (10-20); Creatinine Clr Calc Pharmacy 45.7 ml/min; Est GFR (African American) 64.8; Est GFR (Non-African American) 55.9; Magnesium 1.2 mg/dl (1.8-2.4); Phosphorus 2.1 mg/dl (2.5-4.9); Potassium 3.5 mmol/L (3.5-5.1)
[2019-06-24] MEDS ORDERED: POTASSIUM PHOS 3 MMOL/1 ML INFUSION IV STA (08:20)
[2019-06-24] MEDS ORDERED: INSULIN ASPART 100 UNITS/ML 3 ML PEN SC SCH (08:23)
[2019-06-24] MEDS ORDERED: POTASSIUM PHOSPHATE 15 MMOL in SODIUM CHLORIDE 0.9% 250 ML IV STA (08:29)
[2019-06-24] MEDS: DOCUSATE SODIUM/SENNA 50/8.6MG TAB PO SCH ×2 (08:51→21:08)
[2019-06-24] MEDS: BACLOFEN 10 MG TAB PO SCH ×2 (08:51→21:07)
[2019-06-24] MEDS: MAGNESIUM OXIDE 400 MG TAB PO SCH (08:51)
[2019-06-24] MEDS: ASPIRIN 81 MG ECTAB PO SCH (08:51)
[2019-06-24] MEDS: MAGNESIUM SULFATE / D5W 1 GM/100 ML BAG IV SCH ×2 (08:59→09:59)
[2019-06-24] MEDS: DOXYCYCLINE HYCLATE 100 MG in DEXTROSE 5% 100 ML IV SCH ×2 (08:59→21:48)
[2019-06-24] MEDS: LEVOTHYROXINE SODIUM 75 MCG in SYRINGE 0 ML IV SCH (09:00)
[2019-06-24] MEDS: FAMOTIDINE 20 MG in SYRINGE 3 ML IV SCH (09:00)
[2019-06-24] MEDS: INSULIN GLARGINE SOLOSTAR 100 UNITS/ML 3 ML PEN SC SCH ×2 (09:01→21:46)
[2019-06-24] MEDS: HEPARIN SOD 5,000 UNIT/0.5 ML VIAL SQ SCH ×2 (09:02→21:47)
[2019-06-24] MEDS: SODIUM CHLORIDE 0.65% NA SOLN 45 ML (OCEAN) SCH ×4 (09:02→21:47)
--- NOTE | 2019-06-24 11:35 | Hospitalist Progress Note ---
Date of Service June 24, 2019 Assessment & Plan (1) Sepsis: Healthcare associated pneumonia Acute respiratory failure with hypoxia Sepsis Possible Gram negative pneumonia Vs. Aspiration pneumonia in setting of HCAP Possible COVID-19 infection to be ruled out CXR:Bilateral lower lung zone airspace opacities. Pneumonia favored over atelectasis given the history of sepsis. Clinical and radiographic follow-up is recommended. Lactate: normal Procalcitonin: 0.34 Influenza screen negative Negative MRSA screen Blood Cultures: Negative to date Continue IV Doxycycline and Zosyn Day #5 SARS-CoV-2: Negative Oxygen support, Duonebs as needed Weaned off of oxygen Continue IV fluids Aspiration precautions Trend lactate levels Keep her NPO as recommended by Speech therapy Saturating well on room air Plan to start on PPN today Consider Palliative Care Input to address goals of care Dysphagia Has been progressively worsening since 2 yrs as per family NPO for now Speech therapy on board CT head pending PPN to be started today Hypernatremia Hypokalemia Hypomagnesemia Hypophosphatemia Secondary to poor oral intake--dehydration Replace electrolytes as needed Monitor sodium levels: 156>>152>>146>>138 Continue D5W at 100/hr Appreciate Nephrology Input Sodium levels Improved Acute Kidney Injury on CKD III Baseline Cr ~ 1.5 Cr:2.85>>>1.84>>1.32>>0.97 Hold lisinopril, Lasix for now Monitor renal function renal function back to baseline Appreciate Nephrology Input Urinary Retention Bladder Scan PRN Roberts Cath placed DM II Last A1C: 6.4 Updated A1c:7.2 IV fluids also contributing to hyperglycemia Hold p.o. meds Continue insulin sliding scale, Lantus Monitor blood glucose levels Adjust Insulin as needed Hypertension BP stable Hold blood pressure medications for now Alzheimer's dementia Nonverbal at baseline Hypothyroidism Continue levothyroxine Chronic venous stasis dermatitis GERD Continue home meds DVT Px: Heparin SQ Code Status DNI/DNR as per my discussion with patient's daughter-POA Patient preferred to be DNI DNR on multiple occasions in the past as per patient's daughter. Disposition PT/OT prior to discharge Case management consult for discharge planning Admission and Anticipated Discharge Date Admission Date: June 20, 2019 Subjective Patient is seen and examined at bedside History is limited due to Aphasia/dementia More alert and awake today Afebrile Has cough Currently NPO NG tube could not be placed Will be started on PPN today CT head pending Saturating low 90s on room air Review of Systems Review of Systems: Other Aphasia Physical Exam Physical Exam: Physical Exam: Vitals signs as noted above General Appearance:Moderately built and nourished, no apparent distress, chronic ill appearing Head: normocephalic, Atraumatic Eyes: normal inspection, EOMI Neck: supple, Trachea midline Respiratory/Chest: Decreased breath sounds, basal crackles Cardiovascular: S1, S2, No murmur Abdomen/GI:Soft, Non tender, Bowel sounds present Extremities/Musculoskelatal:normal inspection, no edema, chronic venous stasis changes Neurologic/Psych:grossly no focal neurological deficits, aphasic, lethargic Skin: normal color, warm Results & Data Results & Data ([facility]) Vital Signs (Past 12 Hours) Vital Signs Temp Pulse Pulse Resp BP Pulse Ox 06/24/19 11:14 37.5 C 82 18 107/69 93 06/24/19 07:25 86 06/24/19 07:21 37.2 C 86 18 147/84 H 90 06/24/19 03:30 36.4 C L 68 24 144/75 H 97 Laboratory Results Short CBC 06/24/19 Range/Units 05:07 WBC 16.44 H (4.8-10.8) K/uL Hgb 11.5 L (12.0-16.0) g/dL Hct 34.5 L (37-47) % Plt Count 202 (130-400) K/uL BMP 06/24/19 05:07 Sodium 138 D Potassium 3.5 Chloride 116 H Carbon Dioxide 18 L BUN 29 H Creatinine 0.97 Glucose 199 H Calcium 10.0 (1) Sepsis Sepsis acute organ dysfunction status: unspecified Sepsis type: sepsis due to unspecified organism Qualified Code(s): A41.9 - Sepsis, unspecified organism
--- NOTE | 2019-06-24 11:52 | Pharmacy Report ---
Pharmacy PN Initial Consult - Date of Service June 24, 2019 - Scope Pharmacy has been consulted to manage parenteral nutrition orders and order appropriate labs. As part of the Nutrition Support Team guidelines, pharmacy will work in conjunction with dietary when determining the patients caloric needs. - Subjective The patient is a 78 year old F admitted on 06/20/19 18:00 for SEPSIS,PNEUMONIA. Patient is to receive parenteral nutrition for severe dysphagia and prolonged NPO status. Pertinent PMH: Healthcare facility, GERD, chronic venous stasis dermatitis, CKD III, T2DM, dementia, aphasic at baseline. - Objective Height: 5 ft 3 in Weight: 73.9 kg Diet: NPO Vascular Access:: * Peripheral IV access deemed appropriate for use by IV team Intake & Output (Last 24Hrs): Intake & Output 06/22/19 06/23/19 06/24/19 06/25/19 06:59 06:59 06:59 06:59 Intake Total 2996.323 / 2996.323 2572.24 / 2572.24 2483.333 / 2483.333 1111.667 / 1111.667 Output Total 1000 / 1000 1650 / 1650 650 / 1300 650 / 650 Balance 1996.323 / 1996.323 922.24 / 922.24 1833.333 / 1183.333 461.667 / 461.6 67 Weight 70.8 kg 72.7 kg 72.7 kg 73.9 kg Additional Fluid Losses/Gains:: * D5W + 20 mEq KCl at 100 cc/hr Laboratory Data (Last 24 Hrs):: 06/24/19 05:07 Sodium 138 D Potassium 3.5 Chloride 116 H Carbon Dioxide 18 L BUN 29 H Creatinine 0.97 Glucose 199 H Calcium 10.0 Phosphorus 2.1 L Magnesium 1.2 L Triglycerides 120 Nutrition Assessment:: Please refer to the Notes section of the EMR for the most recent senior policy analyst note. - Assessment * 78 yo F admitted on 06/20/2019 from [facility] with suspected HAP * Per [facility], patient had very poor appetite for last 2 weeks. Started on pureed diet w/ nectar thick liquids upon admission as that was what she was receiving at [facility]. * Speech Therapy assessed patient and recommended NPO status secondary to aspiration risk. Reassessment on 06/22 showed some improvement in swallowing but still recommended patient remain NPO. * Dietitian consulted and recommended enteral nutrition. Patient did not tolerate coresafe placement. Therefore, decision made to start on PPN. * Macronutrient recommendations from dietary appreciated. * Patient presented with hypernatremia of 158 mmol/L secondary to free water deficit in setting of poor PO intake and ZULMA. Na down to 138 mmol/L this AM with fluid replacement. * Calculated macronutrient goals based on updated Adjusted Body Weight of 61 kg. * Amino Acids: 75 g/day * Dextrose: 220 g/day * Lipids: 45 g/day * Total Kcal: 1500 kcal/day (~ 25 kcal/kg per AdjBW) * Macronutrient goals unlikely to be met given limited osmolarity of PPN solution * For today's PPN solution: * Dextrose to start at 50% of goal to limit risk of refeeding syndrome * Amino acids and Lipids decreased from goal to meet osmolarity requirements * Micronutrients to be added per BMP results * Patient previously receiving 48 mEq/day of KCl with fluids. K decreased from 3.8 to 3.5 today. Patient received KPhos 15 mmol x 1 this AM. Will increase K in bag. * Patient previously receiving 120 g/day of Dextrose with fluids. 50% of D extrose goal results in 110 g of Dextrose in PPN bag. Patient with noted hyperglycemia this AM and insulin regimen was adjusted in response. Will not add insulin to the PPN bag today. Follow closely. - Plan For day 1 of PN administration, the following will be ordered: Macronutrients Amino acids 70 grams/day Dextrose 110 grams/day Lipids 30 grams/day Micronutrients Sodium chloride 30 mEq Sodium acetate 60 mEq Potassium phosphate 30 mMol Potassium acetate 30 mEq Magnesium sulfate 12.18 mEq Multivitamins 10 mL Trace Elements 10 mL Folic acid 1 mg Thiamine 100 mg Famotidine 20 mg Total volume 1750 mL to be infused over 24 hrs will provide 954 kcal/day Final osmolarity 875 mOsm/L (maximum for PPN is 900 mOsm/L) Labs to be ordered per PN order protocol Pharmacy will follow and adjust parenteral nutrition orders on a daily basis. Thank you.
[2019-06-24] MEDS ORDERED: IVF: STOP ORDER ONE (16:00)
[2019-06-24] MEDS ORDERED: TPN IV SCH (16:00)
[2019-06-24] MEDS ORDERED: DEXTROSE 10% 1,000 ML IV PRN (16:00)
[2019-06-24] MEDS ORDERED: PERIPHERAL PN IV SCH (16:00)
[2019-06-24] MEDS ORDERED: PHARMACY GLYCEMIC MGMT CONSULT SCH (17:31)
--- NOTE | 2019-06-24 18:07 | Pharmacy Report ---
Glycemic Control Consultation - Date of Service June 24, 2019 - Scope Scope: Glycemic Pharmacist consulted for glycemic control and to write orders per [facility] inpatient glycemic control protocol. - Objective Weight: 73.9 kg Accuchecks BSG (last 24hrs): 06/23/19 06/24/19 06/24/19 18:20 00:52 05:07 Glucose 199 H POC Glucose 178 H 270 H 06/24/19 06/24/19 06/24/19 05:49 07:27 07:28 Glucose POC Glucose 189 H 410 H* 192 H 06/24/19 06/24/19 06/24/19 07:44 11:32 11:32 Glucose POC Glucose 182 H 259 H 276 H 06/24/19 16:34 Glucose POC Glucose 137 H Laboratory Data (last 24hrs): 06/24/19 05:07 Potassium 3.5 Carbon Dioxide 18 L Anion Gap 4.0 Creatinine 0.97 Est Cr Clr Drug Dosing 45.7 HbA1c: Hemoglobin A1c 7.2 % (4.5-5.6) H 06/21/19 07:17 - Recent Pertinent Medications Outpatient Anti-diabetic Regimen: * Glipizide 10mg PO TID meals * Januvia 25mg daily * A1c = 7.2 % 06/21/19 The patient is currently receiving: * Basal insulin: Lantus 5 units every 12 hours (discontinued, last dose 06/22 HS) * Correctional Insulin: Novolog Correction per scale ACHS Goal Range: Low 110 mg/dL - High 140 mg/dL Correction Factor: 20 mg/dL/unit * Prandial insulin: Per carb ratio of 1 unit per 7 grams CHO consumed * Oral Agents: Risk Factors for Insulin Resistance: * Infection: IV Doxy & Zosyn * Diet: TPN - contains 110mg Dextrose/24 hours - Assessment & Plan Assessment & Plan: ASSESSMENT: * 78 year old female with pneumonia, NPO, started on TPN today. * TPN providing 110 grams of CHO over 24 hours - Novolog with CR to cover these carbohydrates. * Patient was on basal insulin of 5 units BID yesterday but was cut today, will resume if needed, but blood sugar at 137mg/dl at this time, and corrected well from 259mg/dl prior. PLAN FOR INPATIENT GLYCEMIC CONTROL: * Holding outpatient oral diabetes medications * Basal insulin - none at this time * Bolus insulin * NovoLog per scale Q4hrs while NPO on TPN * Goal Range: Low 110 mg/dL - High 140 mg/dL * Correction Factor: 20 mg/dL/unit * Nutritional / Prandial insulin per carb ratio of 1 unit per 7 grams CHO consumed - USED TO COVER TPN * Please note that the plan above was derived based on current level of insulin resistance and hospital stress. These recommendations are appropriate for inpatient admission only. Plan of care upon discharge will need to be reassessed to avoid potential outpatient hypo/hyperglycemia. Thank you.
[2019-06-24] MEDS: LORATADINE 10 MG TAB PO SCH (21:08)
[2019-06-25] MEDS: INSULIN ASPART 100 UNITS/ML 3 ML PEN SC SCH ×6 (00:48→20:34)
[2019-06-25] MEDS: PIPERACILLIN/TAZOBACTAM 3.375 GM in DEXTROSE 5% 100 ML IV SCH ×3 (01:56→17:11)
[2019-06-25 06:42] LABS: Hematocrit (blood only) 31.4 % (37-47); Hemoglobin 10.7 g/dL (12.0-16.0); Mean Corpuscular Hgb Conc 34.1 g/dL (32-36); Mean Platelet Volume 10.3 fL (7.4-10.4); Platelet Count 204 K/uL (130-400); RDW Coefficient of Variation 13.8 % (11.5-14.5); RDW Standard Deviation 45.4 fL (36.4-46.3); Red Blood Count 3.45 M/uL (4.2-5.4); White Blood Count 14.86 K/uL (4.8-10.8)
[2019-06-25 07:22] LABS: BUN Creatinine Ratio 31.8 (10-20); Calcium 9.9 mg/dl (8.5-10.1); Creatinine Clr Calc Pharmacy 54.6 ml/min; Est GFR (African American) 80.6; Est GFR (Non-African American) 69.6; Magnesium 1.8 mg/dl (1.8-2.4); Potassium 3.6 mmol/L (3.5-5.1)
[2019-06-25 07:26] LABS: Phosphorus 3.1 mg/dl (2.5-4.9)
[2019-06-25] MEDS: DOXYCYCLINE HYCLATE 100 MG in DEXTROSE 5% 100 ML IV SCH ×2 (08:10→21:29)
[2019-06-25] MEDS: ASPIRIN 81 MG ECTAB PO SCH (08:10)
[2019-06-25] MEDS: HEPARIN SOD 5,000 UNIT/0.5 ML VIAL SQ SCH ×2 (08:10→20:35)
[2019-06-25] MEDS: BACLOFEN 10 MG TAB PO SCH ×2 (08:11→20:35)
[2019-06-25] MEDS: MAGNESIUM OXIDE 400 MG TAB PO SCH (08:11)
[2019-06-25] MEDS: DOCUSATE SODIUM/SENNA 50/8.6MG TAB PO SCH ×2 (08:12→20:35)
[2019-06-25] MEDS: SODIUM CHLORIDE 0.65% NA SOLN 45 ML (OCEAN) SCH ×4 (08:12→20:35)
[2019-06-25] MEDS: INSULIN GLARGINE SOLOSTAR 100 UNITS/ML 3 ML PEN SC SCH ×3 (08:15→20:34)
[2019-06-25] MEDS: LEVOTHYROXINE SODIUM 75 MCG in SYRINGE 0 ML IV SCH (09:30)
--- NOTE | 2019-06-25 09:51 | Pharmacy Report ---
Pharmacy Glycemic Short Note 2 - Date of Service June 25, 2019 - Glycemic Short BSG Results (Last 24 hours): 06/24/19 06/24/19 06/24/19 11:32 11:32 16:34 Glucose POC Glucose 259 H 276 H 137 H 06/24/19 06/25/19 06/25/19 20:27 00:09 03:46 Glucose POC Glucose 209 H 133 H 163 H 06/25/19 06/25/19 06:24 07:35 Glucose 143 H POC Glucose 139 H Outpatient Anti-diabetic Regimen: * Glipizide 10mg po TIDM * Januvia 25mg po daily * A1c = 7.2 % 06/21/19 The patient is currently receiving: * Basal insulin: Lantus 5-10 units every 12 hours * Correctional Insulin: Novolog Correction per scale ACHS Goal Range: Low 110 mg/dL - High 140 mg/dL Correction Factor: 20 mg/dL/unit * Prandial insulin: Per carb ratio of 1 unit per 7 grams CHO consumed * Oral Agents: On hold Risk Factors for Insulin Resistance: * Infection: Sepsis 2nd PNA - on Zosyn and doxycycline * Diet: PPN - contains 110 g dextrose/24 hours ASSESSMENT: * 78 year old female with pneumonia, NPO, started on TPN yesterday. * BSG's have responded well to increase in Novolog to cover CHO in TPN yesterday. Will elminate CHO ratio in Novolog but add IV insulin to PPN bag * OK to continue Lantus, but will scale based on BSG PLAN FOR INPATIENT GLYCEMIC CONTROL: * Holding outpatient oral diabetes medications * Basal insulin - Lantus 0-10 units every 12 hours, depending on BSG (see MAR for details) * Bolus insulin * NovoLog per scale Q4hrs while NPO on PPN * Goal Range: Low 110 mg/dL - High 140 mg/dL * Correction Factor: 20 mg/dL/unit * Eliminate CHO ratio * IV insulin - Add 12 units in PPN bag, containing 110 g dextrose
--- NOTE | 2019-06-25 11:00 | CT Scan Report ---
HEAD CT NONCONTRAST CT DOSE: 844.62 mGy.cm HISTORY: Unresponsive. Stroke symptoms. TECHNIQUE: Multiaxial CT images of the head were performed without the use of intravenous contrast. A utomated exposure control was utilized for this study. A dose lowering technique was utilized adheri ng to the principles of ALARA. Comparison: Head CT 02/03/2018. Findings: The paranasal sinuses and mastoid air cells are clear. The calvarium and skull base are int act. There is no mass, hematoma, midline shift, acute infarct. White matter hypodensity is nonspecifi c but suggestive of microvascular ischemic change. The ventricles and sulci demonstrate mild age-rela mor involutional changes. Impression: No acute intracranial abnormality. Atrophy and microvascular ischemic changes. ACT 112: Negative or not required by law. Electronically signed by: Raj Frost M.D. 06/25/2019 10:59 AM
--- NOTE | 2019-06-25 11:16 | Palliative Care Consultation ---
Date of Consultation June 25, 2019 Assessment & Plan (1) Goals of care, counseling/discussion: -78 year old female patient with PMH DM, hypertension, Alzheimer's dementia, hypothyroidism, CKD III, chronic venous stasis dermatitis, GERD and others, presented to the hospital five days ago with bilateral pneumonia and sepsis from the [facility] where she resides. Patient apparently was diagnosed with bronchitis about two weeks ago, she was not improving and was then treated with abx for pneumonia. Prior to the bronchitis/pneumonia, patient had a bout of cellulitis and a UTI. She continued to worsen, so she was sent to the ED. CXR revealed bibasilar pneumonia, WBCs 27.44, hypoxic with sats 88%, creatinine 2.85, sodium 156, albumin 2.9. Patient treated with abx appropriately, as well as IVF. Nephrology was consulted, but kidney function has returned to baseline with treatment. Patient's lab values have all improved: creatinine 0.81, sodium 141, WBCs 14.86. She is now on room air with saturation 96%. While patient's lab values have improved, her cognitive status unfort unately has not, and she continues to be unable to eat/drink. Speech therapy evaluated patient-- when patient was given pudding, she lost most of it by dropping it from her mouth. She eventually did have a very delayed swallow, swallowed 2-3 times per bite, did not have coughing/choking/aspiration. When given nectar thickened liquids (which she was apparently on at the [facility]), it ran back out of her mouth. Patient was made NPO. A nasogastric feeding tube was attempted to be placed, but apparently nursing was unable to do so. Patient was started on PPN yesterday 06/23. Palliative care is now consulted to discuss goals of care with patient's family. -I called patient's family: two daughters Neetu (POA) and Emily. We had discussion via conference call. -Neetu stated that two weeks ago, patient was feeding herself without issue, was ambulating independently to the bathroom, and was able to hold conversations with staff and family. She admitted that patient does have dementia, but patient knows her family members, is able to talk about daily events, could even tell the daughter about her infections and medications, etc. Daughter stated that patient would have trouble pointing out certain family members in photographs, and sometimes had trouble getting her thoughts across, but could for the most part communicate appropriately. -From what daughter describes, baseline FAST score is 5-6b, indicating moderate to moderately severe dementia. Patient is NOT nonverbal at baseline, so patient's current condition is a sharp decline from her usual state. -In speaking with the daughters, they would like to continue current treatment, obtain the CT of the head that is ordered, and continue to give patient time to recover. If the patient has had a stroke or some other condition that would further prohibit her from recovering, they are prepared to abide by patient's wishes and have discussion about goals of care at that point. However, if this is all related to her multiple acute infections/illnesses, they would like to continue treatment in hopes that she will return to her baseline. -Both daughters agree that if patient did in fact have a stroke, they do not think patient would want a PEG tube/permanent feeding tube at that point, but they need to have further discussion at that point. -Patient has a POLST form on file that states DNR, limited additional interventions, abx if life can be prolonged, and trial of artificial hydration but no feeding tube. This was completed with the patient in January 2018. Daughters both verbalize understanding. -Of note, after my conversation with daughters, CT head was completed which showed nothing acute, but showed atrophy and microvascular ischemic changes. Palliative MD evaluated patient at bedside, and she is noted to have delayed response, is nonverbal with moaning. MRI could be helpful to obtain for further evaluation. -For now, continue current treatment. We will continue to reevaluate each day and remain involved with patient's family to further discuss goals of care based on clinical course. (2) Sepsis: Sepsis acute organ dysfunction status: unspecified Sepsis type: sepsis due to unspecified organism Qualified Code(s): A41.9 - Sepsis, unspecified organism (3) Dementia: Alzheimer's disease onset: unspecified onset Dementia behavioral disturbance: without behavioral disturbance Dementia type: Alzheimer's disease Qualified Code(s): G30.9 - Alzheimer's disease, unspecified; F02.80 - Dementia in other diseases classified elsewhere without behavioral disturbance Supervising Physician Co-Signing Physician Notes Chart reviewed, patient seen and examined. Collaborated with ELIN Gonzales as well as attending physician Dr. Garcia. Patient awake and alert, appears comfortable. Patient was able to nod yes or no to a few simple questions-patient would vocalize with mouth shot-did not attempt to speak. Patient noted throughout exam to be able to move her right arm very slowly, did not move her left arm during exam. She was unable to follow simple commands arzola ch as wiggle her toes. PE: Alert, NAD HEENT: EOMI, hearing appears to be within normal limits Respirations: Coarse breath sounds left greater than right, appears comfortable on room air CV: Regular rate, no lower extremity edema. Lower extremity skin changes consistent with peripheral vascular disease Abdomen: Soft, no grimace on palpation Extremities: Was only moving her right arm very slowly. Neuro: Awake, alert, did not attempt to speak, unable to follow simple commands, was able to answer a few simple questions by nodding yes or no Discussed exam with attending physician-we will obtain an MRI to rule out CVA. CT scan was negative for acute findings. Patient's lab continue improve-we will continue to follow patient and update family. We will assist family with medical decision making. History of Present Illness Attending Physician: Rudolph Garcia MD History of Present Illness This 78 year old female patient with PMH DM, hypertension, Alzheimer's dementia, hypothyroidism, CKD III, chronic venous stasis dermatitis, GERD and others, presented to the hospital five days ago with bilateral pneumonia and sepsis from the [facility] where she resides. Patient apparently was diagnosed with bronchitis about two weeks ago, she was not improving and was then treated with abx for pneumonia. Prior to the bronchitis/pneumonia, patient had a bout of cellulitis and a UTI. She continued to worsen, so she was sent to the ED. CXR revealed bibasilar pneumonia, WBCs 27.44, hypoxic with sats 88%, creatinine 2.85, sodium 156, albumin 2.9. Patient treated with abx appropriately, as well as IVF. Nephrology was consulted, but kidney function has returned to baseline with treatment. Patient's lab values have all improved: creatinine 0.81, sodium 141, WBCs 14.86. She is now on room air with saturation 96%. While patient's lab values have improved, her cognitive status unfortunately has not, and she continues to be unable to eat/drink. Speech therapy evaluated patient-- when patient was given pudding, she lost most of it by dropping it from her mouth. She eventually did have a very delayed swallow, swallowed 2-3 times per bite, did not have coughing/choking/aspiration. When given nectar thickened liquids (which she was apparently on at the [facility]), it ran back out of her mouth. Patient was made NPO. A nasogastric feeding tube was attempted to be placed, but apparently nursing was unable to do so. Patient was started on PPN yesterday 06/23. Palliative care is now consulted to discuss goals of care with patient's family. Thank you kindly for this consult. Palliative care team will follow as needed. Allergies Allergy/AdvReac Type Severity Reaction Status Date / Time No Known Allergies Allergy Intermediate Verified 01/30/18 10:04 Home Medications Home Medications Medication Instructions Recorded Confirmed Type aspirin 81 mg PO QAM 02/03/18 06/20/19 History furosemide 20 mg PO BID 02/03/18 06/20/19 History glipizide 10 mg PO TIDM 02/03/18 06/20/19 History lisinopril 10 mg PO QAM 02/03/18 06/20/19 History magnesium oxide 400 mg PO QAM 02/03/18 06/20/19 History omeprazole 20 mg PO QAM 02/03/18 06/20/19 History acetaminophen [Tylenol] 650 mg PO BID 06/20/19 06/20/19 History acetaminophen [Tylenol] 650 mg PO QID PRN 06/20/19 06/20/19 History azithromycin [Zithromax] 500 mg PO DAILY@0130 06/20/19 06/20/19 History baclofen 5 mg PO BID 06/20/19 06/20/19 History cholecalciferol (vitamin D3) 125 mcg PO QAM 06/20/19 06/20/19 History [Vitamin D3] dextromethorphan-guaifenesin 10 ml PO Q6H PRN 06/20/19 06/20/19 History famotidine 20 mg PO HS 06/20/19 06/20/19 History levothyroxine 150 mcg PO QAM 06/20/19 06/20/19 History loratadine [Claritin] 10 mg PO HS 06/20/19 06/20/19 History multivit,stress formula-zinc 1 tab PO QAM 06/20/19 06/20/19 History [Stress Formula with Zinc] sennosides-docusate sodium 1 tab-cap PO BID 06/20/19 06/20/19 History [Senna-S] sitagliptin [Januvia] 25 mg PO QAM 06/20/19 06/20/19 History sodium chloride [Saline Nasal Mist] 2 spray INTRANASAL QID 06/20/19 06/20/19 History Patient History Medical History Alzheimer's dementia (Chronic) Chronic venous stasis dermatitis of both lower extremities CKD (chronic kidney disease) stage 3, GFR 30-59 ml/min Dementia Diabetes (Chronic) H/O kidney disease (Chronic) Hypertension (Chronic) Hypothyroid (Chronic) Morbid obesity Surgical History History of hip surgery (Chronic) b/l KVNG History of hysterectomy S/P carpal tunnel release (Chronic) S/P hernia repair (Chronic) Family History Other Family history non-contributory Social History Preferred Language: Icelandic Communication Ability: Unable Visual Impairment: Limited Hearing Ability: Normal Petroleum Sampler Required: No Beliefs That Will Affect Care: None marital status: Current Living Situation: Long Term Current Living Situation Comment: Health aide 3x/wk; daughter frequently stops in current occupational status: retired Other Information That Helps Us Care for You: No Feels Safe at Home: Yes Safety Concerns: Feels Safe At This Time Smoking Status: Never smoker Hx Alcohol Use: No Hx Substance Use: No Results & Data Vital Signs (Past 12 Hours) Vital Signs Temp Pulse Pulse Resp BP Pulse Ox 06/25/19 09:24 71 06/25/19 07:13 37.0 C 62 20 108/68 96 06/25/19 03:50 36.9 C 67 20 155/78 H 96 06/24/19 23:12 36.6 C 61 20 123/75 98 Coding Level of Care Code 15385 Inpt Consult Level 3 Diagnoses Goals of care, counseling/discussion Z71.89 Sepsis A41.9 Sepsis acute organ dysfunction status: unspecified Sepsis type: sepsis due to unspecified organism Dementia G30.9; F02.80 Alzheimer's disease onset: unspecified onset Dementia behavioral disturbance: without behavioral disturbance Dementia type: Alzheimer's disease Time Spent (min) 80 Time Spent Midlevel A total of 60 minutes spent by this SEARCH ENGINE OPTIMIZATION ANALYST in review of chart, speaking with attending physician multiple times, phone conference with patient's daughters re: goals of care, and collaborating with palliative MD. Attending Time spent 20 minutes with greater than 50% of the time at bedside assessing patient's current condition, collaborated with attending physician as well as ELIN Gonzales for a total of 80 minutes.
--- NOTE | 2019-06-25 11:53 | Hospitalist Progress Note ---
Date of Service June 25, 2019 Assessment & Plan (1) Sepsis: Healthcare associated pneumonia Acute respiratory failure with hypoxia Sepsis Possible Gram negative pneumonia Vs. Aspiration pneumonia in setting of HCAP Possible COVID-19 infection to be ruled out CXR:Bilateral lower lung zone airspace opacities. Pneumonia favored over atelectasis given the history of sepsis. Clinical and radiographic follow-up is recommended. Lactate: normal Procalcitonin: 0.34 Influenza screen negative Negative MRSA screen Blood Cultures: Negative to date Continue IV Doxycycline and Zosyn Day #6 SARS-CoV-2: Negative Oxygen support, Duonebs as needed Weaned off of oxygen Received IV fluids Aspiration precautions Trend lactate levels Keep her NPO as recommended by Speech therapy Saturating well on room air Continue PPN Appreciate Palliative Care Input Dysphagia Has been progressively worsening since 2 yrs as per family NPO for now Speech therapy on board CT head:No acute intracranial abnormality. Atrophy and microvascular ischemic changes. Continue PPN Hypernatremia Hypokalemia Hypomagnesemia Hypophosphatemia Secondary to poor oral intake--dehydration Replace electrolytes as needed Monitor sodium levels: 156>>152>>146>>141 Resume D5W if needed Appreciate Nephrology Input Sodium levels Improved Acute Kidney Injury on CKD III Baseline Cr ~ 1.5 Cr:2.85>>>1.84>>1.32>>0.81 Hold lisinopril, Lasix for now Monitor renal function renal function back to baseline Appreciate Nephrology Input Urinary Retention Bladder Scan PRN Roberts Cath placed DM II Last A1C: 6.4 Updated A1c:7.2 IV fluids also contributing to hyperglycemia Hold p.o. meds Continue insulin sliding scale, Lantus Monitor blood glucose levels Adjust Insulin as needed Hypertension BP on lower side Hold blood pressure medications for now Alzheimer's dementia Mostly Nonverbal since 2018 as per family Hypothyroidism Continue levothyroxine Chronic venous stasis dermatitis GERD Continue home meds DVT Px: Heparin SQ Code Status DNI/DNR as per my discussion with patient's daughter-POA Patient preferred to be DNI DNR on multiple occasions in the past as per patient's daughter. Disposition PT/OT prior to discharge Case management consult for discharge planning Admission and Anticipated Discharge Date Admission Date: June 20, 2019 Subjective Patient is seen and examined at bedside History is limited due to Aphasia/dementia On PPN Lethargic during my exam CT Head showed no acute findings Discussed with palliative care and patient's family today Has cough Currently NPO Saturating well on room air Review of Systems Review of Systems: Unobtainable due to mental health condition Physical Exam Physical Exam: Physical Exam: Vitals signs as noted above General Appearance:Moderately built and nourished, no apparent distress, chronic ill appearing Head: normocephalic, Atraumatic Eyes: normal inspection, EOMI Neck: supple, Trachea midline Respiratory/Chest: Decreased breath sounds, basal crackles Cardiovascular: S1, S2, No murmur Abdomen/GI:Soft, Non tender, Bowel sounds present Extremities/Musculoskelatal:normal inspection, no edema, chronic venous stasis changes Neurologic/Psych:aphasic, lethargic. Complete neuro exam could not be performed Skin: normal color, warm Results & Data Results & Data ([facility]) Vital Signs (Past 12 Hours) Vital Signs Temp Pulse Pulse Resp BP Pulse Ox 06/25/19 11:28 36.5 C 58 L 18 107/67 92 06/25/19 09:24 71 06/25/19 07:13 37.0 C 62 20 108/68 96 06/25/19 03:50 36.9 C 67 20 155/78 H 96 Laboratory Results Short CBC 06/25/19 Range/Units 06:24 WBC 14.86 H (4.8-10.8) K/uL Hgb 10.7 L (12.0-16.0) g/dL Hct 31.4 L (37-47) % Plt Count 204 (130-400) K/uL BMP 06/25/19 06:24 Sodium 141 Potassium 3.6 Chloride 113 H Carbon Dioxide 21 BUN 26 H Creatinine 0.81 Glucose 143 H Calcium 9.9 (1) Sepsis Sepsis acute organ dysfunction status: unspecified Sepsis type: sepsis due to unspecified organism Qualified Code(s): A41.9 - Sepsis, unspecified organism
--- NOTE | 2019-06-25 14:22 | Magnetic Resonance Report ---
MRI OF THE BRAIN WITHOUT IV CONTRAST CLINICAL HISTORY: Unresponsive. COMPARISON STUDY: CT of the brain dated 06/25/2019. TECHNIQUE: MRI of the brain was performed utilizing various T1 and T2-weighted sequences in the axial , sagittal, and coronal planes. IV contrast was not administered for this examination. The examinatio n is modestly degraded by motion artifact. FINDINGS: Brain parenchyma: There is age-related involutional change noting mild subcortical and periventricula r microangiopathic disease. There is no hemorrhage or mass effect. There is no restricted diffusion t o suggest acute ischemia. Odell-white matter differentiation is preserved. No extra-axial fluid collec tion is seen. The cerebellar tonsils are normal in configuration. Ventricles, sulci, and cisterns: Prominent secondary to involutional change. Pituitary and sella: Unremarkable. Intracranial vasculature: Normal flow voids are maintained at the skull base. Orbits: The bony orbits are grossly intact. Orbital contents are normal in appearance. Sinuses and mastoids: There is a small right mastoid effusion. The left mastoid air cells and the par anasal sinuses are clear. Calvarium: Unremarkable. Cervical cord: Partially visualized cervical spinal cord is normal in morphology and signal intensity . IMPRESSION: No acute intracranial abnormality. ACT 112: Negative or not required by law. Electronically signed by: Raoul Villeda M.D. 06/25/2019 2:21 PM
[2019-06-25] MEDS: ACETAMINOPHEN 1,000 MG/100 ML VIAL IV PRN (14:41)
[2019-06-25] MEDS ORDERED: PERIPHERAL PN IV SCH (16:00)
[2019-06-25] MEDS ORDERED: TPN IV SCH (16:00)
--- NOTE | 2019-06-25 18:10 | Nephrology Progress Note ---
Date of Service June 25, 2019 Assessment & Plan (1) History of renal failure: presenting creatinine 2.9; had been 1.2-1.6 as baseline prior to admission; now w/ PPN, IV fluids, frequent labs, creatinine has improved to 0.8; hypernatremia and dehydration resolved. -note that palliative care is following, discussing goals of care w/ family -- pt on PPN in part b/c of inability to swallow now/new will sign off -recommend weekly bmp x 3 wks at hospital d/c -if these remain normal in terms of chemistries, creatinine can follow up prn -would continue to hold outpatient lasix, lisinopril for now; reintroduce one at a time as indicated once renal function/chemistries have been stable for a few days Admission and Anticipated Discharge Date Admission Date: June 20, 2019 Subjective seen on rounds this afternoon about 1245. getting PICC dressing changed/adjusted which is painful/distressing clearly. Review of Systems Review of Systems: Unobtainable due to cognitive status and Unobtainable due to reduced consciousness Physical Exam Constitutional: well developed, well nourished and + in distress (as per HPI) Eyes: EOM intact bilaterally ENMT: Ears: no external ear abnormality Nose: no external nose abnormality Mouth: + dry oral mucous membranes Neck: no nuchal rigidity Respiratory: normal respiratory effort Auscultation: + diminished lung sounds; no crackles and no wheezes lying flat on RA Cardiovascular: RRR, no murmur, no edema Gastrointestinal (Abdomen): Inspection/Auscultation: normal bowel sounds Percussion/Palpation: abdomen soft; abdomen nontender Musculoskeletal: Extremities: strength 5/5 throughout Skin: no rashes, warm and dry + skin atrophy wound image reviewed from 1620 this afternoon Neurologic: Speech / Cognition: + abnormal cognition lopez, no words/speech, no tremor Psychiatric: eyes closed, in distress w/ maneuvers for dressing change Genitourinary: benavidez w/ ample dark yellow urine Results & Data ([facility]) Vital Signs (Past 12 Hours) Vital Signs Temp Pulse Pulse Resp BP BP Pulse Ox 06/25/19 15:32 36.3 C L 58 L 18 117/69 95 06/25/19 11:28 36.5 C 58 L 18 107/67 92 06/25/19 09:24 71 06/25/19 07:13 37.0 C 62 20 108/68 96 Laboratory Results 06/25/19 06:24 06/25/19 06:24
[2019-06-25] MEDS: LORATADINE 10 MG TAB PO SCH (20:34)
[2019-06-26] MEDS: INSULIN ASPART 100 UNITS/ML 3 ML PEN SC SCH ×5 (00:05→17:41)
[2019-06-26] MEDS: PIPERACILLIN/TAZOBACTAM 3.375 GM in DEXTROSE 5% 100 ML IV SCH ×3 (02:09→17:33)
[2019-06-26 07:27] LABS: BUN Creatinine Ratio 32.4 (10-20); Calcium 9.9 mg/dl (8.5-10.1); Creatinine Clr Calc Pharmacy 51.2 ml/min; Est GFR (African American) 72.9; Est GFR (Non-African American) 62.9; Magnesium 1.7 mg/dl (1.8-2.4); Phosphorus 2.9 mg/dl (2.5-4.9); Potassium 3.6 mmol/L (3.5-5.1)
--- NOTE | 2019-06-26 08:20 | Pharmacy Report ---
Pharmacy Glycemic Short Note 2 - Date of Service June 26, 2019 - Glycemic Short BSG Results (Last 24 hours): 06/25/19 06/25/19 06/25/19 11:37 16:18 20:17 Glucose POC Glucose 150 H 120 H 168 H 06/25/19 06/26/19 06/26/19 23:57 04:07 05:57 Glucose 146 H POC Glucose 177 H 168 H 06/26/19 07:42 Glucose POC Glucose 145 H Outpatient Anti-diabetic Regimen: * Glipizide 10mg po TIDM * Januvia 25mg po daily * A1c = 7.2 % 06/21/19 The patient is currently receiving: * Basal insulin: Lantus 5-10 units every 12 hours * Correctional Insulin: Novolog Correction per scale q4h Goal Range: Low 110 mg/dL - High 140 mg/dL Correction Factor: 20 mg/dL/unit * Prandial insulin: 12 units of insulin in PPN * Oral Agents: On hold Risk Factors for Insulin Resistance: * Infection: Sepsis 2nd PNA - on Zosyn and doxycycline * Diet: PPN - contains 110 g dextrose/24 hours ASSESSMENT: 06/25 * Ms. Fagan is on day #2 of PPN. Palliative has been consulted to see patient and plan for now is a trial of PPN. Family members do not think patient would want a permanent feeding tube but will discuss further. * Total SQ insulin received yesterday was 35 units. This is in addition to 12 units of insulin added to PPN last night. 6 units of correctional received since last night's PPN started. * BSGs ranging from 120-177 mg/dL over the past 24 hours * Dextrose in PPN will be increased slightly (135 gm) to reach goal but restricted due to osmolarity. Will plan to increase insulin in PPN to account for additional dextrose in PPN and correctional insulin that has still been needed. 06/24 * 78 year old female with pneumonia, NPO, started on PPN yesterday. * BSG's have responded well to increase in Novolog to cover CHO in TPN yesterday. Will elminate CHO ratio in Novolog but add IV insulin to PPN bag * OK to continue Lantus, but will scale based on BSG PLAN FOR INPATIENT GLYCEMIC CONTROL: * Holding outpatient oral diabetes medications * Basal insulin - Lantus 0-10 units every 12 hours, depending on BSG (see MAR for details) * Bolus insulin - change to q6h since BSGs are fairly stable * NovoLog per scale q6h * Goal Range: Low 110 mg/dL - High 140 mg/dL * Correction Factor: 20 mg/dL/unit * IV insulin - Increase to 20 units in PPN bag, containing 135 g dextrose
[2019-06-26] MEDS: BACLOFEN 10 MG TAB PO SCH ×2 (08:39→20:29)
[2019-06-26] MEDS: MAGNESIUM OXIDE 400 MG TAB PO SCH (08:39)
[2019-06-26] MEDS: DOCUSATE SODIUM/SENNA 50/8.6MG TAB PO SCH ×2 (08:39→20:27)
[2019-06-26] MEDS: ASPIRIN 81 MG ECTAB PO SCH (08:39)
[2019-06-26] MEDS: HEPARIN SOD 5,000 UNIT/0.5 ML VIAL SQ SCH ×2 (08:41→20:26)
[2019-06-26] MEDS: DOXYCYCLINE HYCLATE 100 MG in DEXTROSE 5% 100 ML IV SCH ×2 (08:41→21:40)
[2019-06-26] MEDS: SODIUM CHLORIDE 0.65% NA SOLN 45 ML (OCEAN) SCH ×4 (08:47→20:27)
[2019-06-26] MEDS: INSULIN GLARGINE SOLOSTAR 100 UNITS/ML 3 ML PEN SC SCH ×2 (08:47→21:59)
[2019-06-26] MEDS: LEVOTHYROXINE SODIUM 75 MCG in SYRINGE 0 ML IV SCH (08:56)
[2019-06-26] MEDS ORDERED: MAGNESIUM SULFATE / D5W 1 GM/100 ML BAG IV ONE (09:00)
--- NOTE | 2019-06-26 11:38 | XRay Report ---
RIGHT SHOULDER 3 VIEWS HISTORY: Right Shoulder Pain COMPARISON: None. FINDINGS: There is no fracture or dislocation. Soft tissues are unremarkable. The bones are osteopeni c. The right clavicle is intact. Increased markings within the right lung base. Mild osteoarthritis w ithin the supraclavicular glenohumeral joints. IMPRESSION: 1. No fracture or dislocation within the right shoulder. 2. Increased markings within the right lung base may represent a developing opacity. ACT 112: Negative or not required by law. Electronically signed by: Raj Frost M.D. 06/26/2019 11:37 AM
--- NOTE | 2019-06-26 12:47 | Hospitalist Progress Note ---
Date of Service June 26, 2019 Assessment & Plan (1) Sepsis: Healthcare associated pneumonia Acute respiratory failure with hypoxia Sepsis Possible Gram negative pneumonia Vs. Aspiration pneumonia in setting of HCAP CXR:Bilateral lower lung zone airspace opacities. Pneumonia favored over a telectasis given the history of sepsis. Clinical and radiographic follow-up is recommended. Lactate: normal Procalcitonin: 0.34 Influenza screen negative Negative MRSA screen Blood Cultures: Negative Continue IV Doxycycline and Zosyn Day #7 SARS-CoV-2: Negative Oxygen support, Duonebs as needed Weaned off of oxygen Received IV fluids Aspiration precautions Saturating well on room air Continue PPN Appreciate Palliative Care Input Plan to transition to p.o. medications if tolerates diet Dysphagia Has been progressively worsening since 2 yrs as per family Speech therapy on board CT head:No acute intracranial abnormality. Atrophy and microvascular ischemic changes. Continue PPN for now as very poor oral intake Trial of pured diet today Hypernatremia Hypokalemia Hypomagnesemia Hypophosphatemia Secondary to poor oral intake--dehydration Replace electrolytes as needed Monitor sodium levels: 156>>152>>146>>141 Received IV fluids Appreciate Nephrology Input Sodium levels Improved Acute Kidney Injury on CKD III Baseline Cr ~ 1.5 Cr:2.85>>>1.84>>1.32>>0.88 Hold lisinopril, Lasix for now Monitor renal function renal function back to baseline Appreciate Nephrology Input Urinary Retention Bladder Scan PRN Roberts Cath placed DM II Last A1C: 6.4 Updated A1c:7.2 IV fluids also contributing to hyperglycemia Hold p.o. meds Continue insulin sliding scale, Lantus Monitor blood glucose levels Adjust Insulin as needed Hypertension BP on lower side Hold blood pressure medications Alzheimer's dementia Mostly Nonverbal since 2018 as per family Hypothyroidism Continue levothyroxine Chronic venous stasis dermatitis GERD Continue home meds DVT Px: Heparin SQ Code Status DNI/DNR as per my discussion with patient's daughter-POA Patient preferred to be DNI DNR on multiple occasions in the past as per patient's daughter. Disposition PT/OT prior to discharge Case management consult for discharge planning Admission and Anticipated Discharge Date Admission Date: June 20, 2019 Subjective Patient is seen and examined at bedside History is limited due to Aphasia/dementia On PPN More alert, awake today Trying to follow simple commands Nods yes or no for ROS Seems to be slowly improving Less cough Saturating well on room air Started on pureed diet today--Minimal oral intake Review of Systems Review of Systems: Limited secondary to aphasia Physical Exam Physical Exam: Physical Exam: Vitals signs as noted above General Appearance:Moderately built and nourished, no apparent distress, chronic ill appearing Head: normocephalic, Atraumatic Eyes: normal inspection, EOMI Neck: supple, Trachea midline Respiratory/Chest: Decreased breath sounds, CTA Cardiovascular: S1, S2, No murmur Abdomen/GI:Soft, Non tender, Bowel sounds present Extremities/Musculoskelatal:normal inspection, no edema, chronic venous stasis changes Neurologic/Psych:aphasic, lethargic. Complete neuro exam could not be performed Skin: normal color, warm Results & Data Results & Data ([facility] [place]) Vital Signs (Past 12 Hours) Vital Signs Temp Pulse Pulse Resp BP BP Pulse Ox 06/26/19 11:00 36.7 C 67 20 105/63 94 06/26/19 07:47 75 06/26/19 07:00 36.9 C 65 20 101/61 97 06/26/19 03:04 36.6 C 73 22 117/74 94 Laboratory Results [facility] 06/26/19 05:57 Sodium 141 Potassium 3.6 Chloride 110 H Carbon Dioxide 24 BUN 28 H Creatinine 0.88 Glucose 146 H Calcium 9.9 (1) Sepsis Sepsis acute organ dysfunction status: unspecified Sepsis type: sepsis due to unspecified organism Qualified Code(s): A41.9 - Sepsis, unspecified organism
[2019-06-26] MEDS ORDERED: TPN IV SCH (16:00)
[2019-06-26] MEDS ORDERED: PERIPHERAL PN IV SCH (16:00)
[2019-06-26] MEDS: LORATADINE 10 MG TAB PO SCH (20:25)
[2019-06-27] MEDS: ACETAMINOPHEN 1,000 MG/100 ML VIAL IV PRN (00:08)
[2019-06-27] MEDS: INSULIN ASPART 100 UNITS/ML 3 ML PEN SC SCH ×4 (00:08→17:56)
[2019-06-27] MEDS: PIPERACILLIN/TAZOBACTAM 3.375 GM in DEXTROSE 5% 100 ML IV SCH ×2 (02:09→09:44)
[2019-06-27 06:47] LABS: BUN Creatinine Ratio 31.2 (10-20); Calcium 9.7 mg/dl (8.5-10.1); Creatinine Clr Calc Pharmacy 49.1 ml/min; Est GFR (Non-African American) 60.4; Hemoglobin 10.7 g/dL (12.0-16.0); Magnesium 2.2 mg/dl (1.8-2.4); Mean Corpuscular Hemoglobin 30.8 pg (25-34); Mean Corpuscular Hgb Conc 33.4 g/dL (32-36); Mean Corpuscular Volume 92.2 fL (80-100); Potassium 3.9 mmol/L (3.5-5.1); RDW Coefficient of Variation 13.9 % (11.5-14.5); RDW Standard Deviation 46.2 fL (36.4-46.3); Red Blood Count 3.47 M/uL (4.2-5.4); White Blood Count 14.26 K/uL (4.8-10.8)
[2019-06-27 06:48] LABS: Phosphorus 2.9 mg/dl (2.5-4.9)
[2019-06-27 07:20] LABS: Basophils # (auto) 0.04 K/uL (0-0.2); Basophils % (auto) 0.3 %; Eosinophils # (auto) 0.61 K/uL (0-0.5); Eosinophils % (auto) 4.3 %; Immature Granulocytes # (auto) 0.25 K/uL (0.00-0.02); Immature Granulocytes % (auto) 1.8 %; Lymphocytes # (auto) 3.22 K/uL (1.2-3.4); Lymphocytes % (auto) 22.6 %; Mean Platelet Volume 11.2 fL (7.4-10.4); Monocytes # (auto) 1.06 K/uL (0.11-0.59); Monocytes % (auto) 7.4 %; Neutrophils # (auto) 9.08 K/uL (1.4-6.5); Neutrophils % (auto) 63.6 %; Platelet Count 208 K/uL (130-400); RBC Morphology Unremarkable
[2019-06-27] MEDS: DOXYCYCLINE HYCLATE 100 MG in DEXTROSE 5% 100 ML IV SCH ×2 (07:40→21:33)
[2019-06-27] MEDS: HEPARIN SOD 5,000 UNIT/0.5 ML VIAL SQ SCH ×2 (07:40→21:22)
[2019-06-27] MEDS: INSULIN GLARGINE SOLOSTAR 100 UNITS/ML 3 ML PEN SC SCH ×2 (07:42→21:23)
[2019-06-27] MEDS: LEVOTHYROXINE SODIUM 75 MCG in SYRINGE 0 ML IV SCH (09:10)
[2019-06-27] MEDS: ASPIRIN 81 MG ECTAB PO SCH (11:43)
[2019-06-27] MEDS: BACLOFEN 10 MG TAB PO SCH ×2 (11:43→21:22)
[2019-06-27] MEDS: DOCUSATE SODIUM/SENNA 50/8.6MG TAB PO SCH ×2 (11:44→21:23)
[2019-06-27] MEDS: MAGNESIUM OXIDE 400 MG TAB PO SCH (11:44)
[2019-06-27] MEDS: SODIUM CHLORIDE 0.65% NA SOLN 45 ML (OCEAN) SCH ×4 (11:45→21:23)
--- NOTE | 2019-06-27 13:56 | Hospitalist Progress Note ---
Date of Service June 27, 2019 Assessment & Plan (1) Sepsis: Sepsis: Healthcare associated pneumonia Acute respiratory failure with hypoxia Sepsis -admission CXR:Bilateral lower lung zone airspace opacities. Pneumonia favored over atelectasis given the history of sepsis. Procalcitonin: 0.34. Influenza screen negative. Negative MRSA screen. Blood Cultures: Negative. SARS-CoV-2: Negative -initially requiring supplementary oxygen -currently, patient on room air -06/27/2019 Right Shoulder X ray: There is no fracture or dislocation. Soft tissues are unremarkable. The bones are osteopenic. The right clavicle is intact. Increased markings within the right lung base. Mild osteoarthritis within the supraclavicular glenohumeral joints. -as of 06/28/2019 patient is on IV Doxycycline and IV Zosyn as day 8 Dysphagia -Has been progressively worsening since 2 yrs as per family -CT head:No acute intracranial abnormality. Atrophy and microvascular ischemic changes. -patient has been on Total parental Nutrition during this stay -trail of puree diet started on 06/26/2019, patient encouraged to try more oral intake as tolerated Hypernatremia Hypokalemia Hypomagnesemia Hypophosphatemia Secondary to poor oral intake--dehydration -hypernatremia has resolved and electrolyte deficits are corrected at this time Acute Kidney Injury on Chronic Kidney Disease stage III -Baseline Cr ~ 1.5 -admission Cr:2.85 -renal function back at baseline after IV hydration on this admission and holdi ng of lisinopril and holding Lasix -will start Lasix as 20 mg IV daily for now as of 06/27/2019 Hypertension -blood pressure stable off lisinopril -Urinary Retention Bladder Scan PRN Roberts Catheter Type 2 diabetes mellitus [facility] current use of insulin -Hba1c is 7.2 -holding home dose Januvia and glipizide and is on sliding scale insulin Hypothyroidism -on levothyroxine Chronic venous stasis dermatitis GERD -Continue home medications Alzheimer's dementia -Mostly Nonverbal since 2018 as per family DVT Prophylaxis: Heparin SQ Code Status DNI/DNR as per previous discussion with patient's daughter/POA with previous hospitalist Admission and Anticipated Discharge Date Admission Date: June 20, 2019 Subjective baseline is nonverbal. but patient appears to have understanding of what is being said to her. she is able to deny symptoms by shaking her head from side to side and nod affirmatives to questions. she does not appear to have pain or headache or eye pain and no shortness of breath and no chest pain. nursing staff and medical doctor understands her expressing that she has right should pain. but no area of acute tenderness on exam. patient is encouraged to eat today and take oral medications Review of Systems Review of Systems: All systems reviewed & are unremarkable except as noted in HPI & below Physical Exam Constitutional: cooperative and comfortable Eyes: PERRL, conjunctivae normal, anicteric sclerae EOM intact bilaterally ENMT: external ear and nose normal, oropharynx normal Neck: normal visual inspection Respiratory: normal respiratory effort, lungs clear to auscultation Cardiovascular: Rate/Rhythm: regular rate and regular rhythm Gastrointestinal (Abdomen): normal bowel sounds, soft, nontender, no hepatosplenomegaly Musculoskeletal: legs in SCDs Neurologic: baseline is nonverbal. but patient appears to have understanding of what is being said to her. she is able to deny symptoms by shaking her head from side to side and nod affirmatives to questions. she does not appear to have pain or headache or eye pain and no shortness of breath and no chest pain. nursing staff and medical doctor understands her expressing that she has right should pain. but no area of acute tenderness on exam. patient is encouraged to eat today and take oral medications Results & Data Results & Data ([facility]) Vital Signs (Past 12 Hours) Vital Signs Temp Pulse Pulse Resp BP Pulse Ox 06/27/19 11:39 36.8 C 80 20 124/74 93 06/27/19 07:38 36.4 C L 64 20 116/73 95 06/27/19 06:29 48 L 06/27/19 04:18 37.0 C 77 20 143/77 H 95 (1) Sepsis Sepsis acute organ dysfunction status: unspecified Sepsis type: sepsis due to unspecified organism Qualified Code(s): A41.9 - Sepsis, unspecified organism
[2019-06-27] MEDS ORDERED: Custom Peripheral Pn 2,000 ML in TPN BAG 0 ML IV SCH (16:00)
[2019-06-27] MEDS ORDERED: FUROSEMIDE 20 MG in SYRINGE 0 ML IV ONE (16:00)
[2019-06-27] MEDS: AMOXICILLIN/CLAVULANATE 875 MG TAB PO SCH (17:16)
[2019-06-27] MEDS: LORATADINE 10 MG TAB PO SCH (21:22)
[2019-06-28] MEDS: INSULIN ASPART 100 UNITS/ML 3 ML PEN SC SCH ×6 (00:36→20:53)
[2019-06-28] MEDS: LEVOTHYROXINE SODIUM 150 MCG TABLET PO SCH (06:21)
[2019-06-28 06:47] LABS: BUN Creatinine Ratio 30.9 (10-20); Calcium 9.7 mg/dl (8.5-10.1); Creatinine Clr Calc Pharmacy 45.6 ml/min; Est GFR (African American) 65.7; Est GFR (Non-African American) 56.6
[2019-06-28 06:48] LABS: Phosphorus 3.1 mg/dl (2.5-4.9)
[2019-06-28] MEDS: AMOXICILLIN/CLAVULANATE 875 MG TAB PO SCH ×2 (07:25→17:06)
[2019-06-28] MEDS: DOXYCYCLINE HYCLATE 100 MG in DEXTROSE 5% 100 ML IV SCH ×2 (07:25→21:50)
[2019-06-28] MEDS: ASPIRIN 81 MG ECTAB PO SCH (07:26)
[2019-06-28] MEDS: MAGNESIUM OXIDE 400 MG TAB PO SCH (07:26)
[2019-06-28] MEDS: DOCUSATE SODIUM/SENNA 50/8.6MG TAB PO SCH ×2 (07:26→20:53)
--- NOTE | 2019-06-28 07:29 | XRay Report ---
SINGLE VIEW CHEST CLINICAL HISTORY: Follow-up lower lobe opacities. FINDINGS: An AP, portable, upright chest radiograph is compared to study dated 06/20/2019. The examinat ion is degraded by portable technique and patient rotation. The heart is top normal for projection no ting atherosclerotic calcification of the thoracic aorta. The pulmonary vasculature is noncongested. Chronic interstitial thickening is similar to previous. There is bibasilar airspace consolidation, le ft greater than right. No large pleural effusion or pneumothorax is seen. The skeletal structures are osteopenic. The bony thorax is grossly intact. Degenerative change is noted in the shoulders and tho racic spine. IMPRESSION: Bibasilar airspace consolidation is similar to previous. ACT 112: Negative or not required by law. Electronically signed by: Raoul Villeda M.D. 06/28/2019 7:28 AM
[2019-06-28] MEDS: INSULIN GLARGINE SOLOSTAR 100 UNITS/ML 3 ML PEN SC SCH ×2 (08:57→20:53)
[2019-06-28] MEDS: HEPARIN SOD 5,000 UNIT/0.5 ML VIAL SQ SCH ×2 (08:57→20:52)
[2019-06-28] MEDS: FUROSEMIDE 20 MG in SYRINGE 0 ML IV SCH (08:58)
[2019-06-28] MEDS: SODIUM CHLORIDE 0.65% NA SOLN 45 ML (OCEAN) SCH ×4 (08:58→20:52)
--- NOTE | 2019-06-28 10:29 | Hospitalist Progress Note ---
Date of Service June 28, 2019 Assessment & Plan (1) Sepsis: Healthcare associated pneumonia Acute respiratory failure with hypoxia Sepsis -admission CXR:Bilateral lower lung zone airspace opacities. Pneumonia favored over atelectasis given the history of sepsis. Procalcitonin: 0.34. Influenza screen negative. Negative MRSA screen. Blood Cultures: Negative. SARS-CoV-2: Negative -initially requiring supplementary oxygen -currently, patient on room air -06/27/2019 Right Shoulder X ray: There is no fracture or dislocation. Soft tissues are unremarkable. The bones are osteopenic. The right clavicle is intact. Increased markings within the right lung base. Mild osteoarthritis within the supraclavicular glenohumeral joints. -as of 06/28/2019 patient is on IV Doxycycline and IV Zosyn as day 8 Alzheimer's dementia Dysphagia -Has been progressively worsening since 2 yrs as per family in regards to functional decline such as being nonverbal -CT head:No acute intracranial abnormality. Atrophy and microvascular ischemic changes. -patient has been on Partial Parental Nutrition which was started on 06/24/2019 and then with puree diet starting on 06/26/2019 -06/28/2019: Had long conversation with patient's daughter that patient as of AM of 06/28/2019 of not consistently eating or taking the medications. Have informed her daughters Neetu [phone] and Emily [phone] and discussed this potential barrier to discharge. Plan for 06/28/2019 is to stop the PPN by 4 PM and then start on D5 1/2 normal saline at 60 cc/hr to see if patient can be weaned off PPN and slowly transition to oral intake alone. 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 insulin -Hba1c is 7.2 -holding home dose Januvia and glipizide and is on sliding scale insulin Electrolyte abnormalities (Hypernatremia, Hypokalemia, Hypomagnesemia, Hypophosphatemia) have been corrected Secondary to poor oral intake and dehydration -hypernatremia has resolved and electrolyte deficits are corrected at this time Acute Kidney Injury on Chronic Kidney Disease stage III -Baseline Cr ~ 1.5 -admission Cr:2.85 -renal function back at baseline after IV hydration on this admission and holding of lisinopril and holding Lasix -started Lasix as 20 mg IV daily for now as of 06/27/2019 Hypertension -blood pressure stable off lisinopril Urinary Retention -Bladder Scan PRN -on Roberts Catheter Hypothyroidism -on levothyroxine Chronic venous stasis dermatitis GERD -Continue home medications Alzheimer's dementia DVT Prophylaxis: Heparin SQ Code Status DNI/DNR as per previous discussion with patient's daughter/POA with previous hospitalist. daughters Neetu [phone] and Emily [phone] Admission and Anticipated Discharge Date Admission Date: June 20, 2019 Subjective Had long conversation with patient's daughter that patient as of AM of 06/28/2019 of not consistently eating or taking the medications. Have informed her daughters Neetu [phone] and Emily [phone] and discussed this potential barrier to discharge. Plan for 06/28/2019 is to stop the PPN by 4 PM and then start on D5 1/2 normal saline at 60 cc/hr to see if patient can be weaned off PPN and slowly transition to oral intake alone. Patient wrote that she would like to have "salad with dressing and tomato." Despite history of dysphagia concerns in the past, will allow patient for now to try foods beyond pureed textures to see if this can help her transition to oral diet alone Patient is baseline nonverbal. no acute distress. no shortness of breath. does not report acute pain. she was seen by physical/occupational therapist today. Review of Systems Review of Systems: All systems reviewed & are unremarkable except as noted in HPI & below Physical Exam Constitutional: cooperative and comfortable Eyes: PERRL, conjunctivae normal, anicteric sclerae EOM intact bilaterally ENMT: external ear and nose normal, oropharynx normal Neck: normal visual inspection Respiratory: normal respiratory effort, lungs clear to auscultation Cardiovascular: Rate/Rhythm: regular rate and regular rhythm Gastrointestinal (Abdomen): normal bowel sounds, soft, nontender, no hepat osplenomegaly Neurologic: PEERL, EOMI, no facial palsy Psychiatric: Orientation: alert and cooperative nonverbal, patient writes sentences on paper to express her needs Results & Data Results & Data ([facility]) Vital Signs (Past 12 Hours) Vital Signs Temp Pulse Resp BP BP Pulse Ox 06/28/19 07:20 36.7 C 68 18 118/71 96 06/28/19 04:00 36.9 C 68 20 121/58 L 93 06/27/19 23:00 36.8 C 72 20 145/73 H 94 (1) Sepsis Sepsis acute organ dysfunction status: unspecified Sepsis type: sepsis due to unspecified organism Qualified Code(s): A41.9 - Sepsis, unspecified organism
[2019-06-28] MEDS: BACLOFEN 10 MG TAB PO SCH ×2 (11:13→20:54)
[2019-06-28] MEDS: PANTOprazole 40 MG TAB PO SCH (11:13)
--- NOTE | 2019-06-28 14:06 | Pharmacy Report ---
Pharmacy Glycemic Short Note 2 - Date of Service June 28, 2019 - Glycemic Short BSG Results (Last 24 hours): 06/27/19 06/27/19 06/28/19 17:46 21:04 00:22 Glucose POC Glucose 188 H 155 H 190 H 06/28/19 06/28/19 06/28/19 04:07 05:55 07:43 Glucose 133 H POC Glucose 132 H 138 H 06/28/19 11:32 Glucose POC Glucose 184 H Outpatient Anti-diabetic Regimen: * Glipizide 10mg po TIDM * Januvia 25mg po daily * A1c = 7.2 % 06/21/19 ASSESSMENT: 06/28/19: * PPN will stop today at 1600 when current bag finishes. Pt will then receive IVF with dextrose to transition off of PPN and minimize hypoglycemia risk. * Pt is ordered a pureed diabetic diet. * Insulin dosing loosened somewhat today in anticipation of parenteral nutrition discontinuation. Goal, again, is to minimize risk of hypoglycemia. * Will make further adjustments tomorrow, if necessary, when PPN is no longer infusing. 06/25 * Ms. Fagan is on day #2 of PPN. Palliative has been consulted to see patient and plan for now is a trial of PPN. Family members do not think patient would want a permanent feeding tube but will discuss further. * Total SQ insulin received yesterday was 35 units. This is in addition to 12 units of insulin added to PPN last night. 6 units of correctional received since last night's PPN started. * BSGs ranging from 120-177 mg/dL over the past 24 hours * Dextrose in PPN will be increased slightly (135 gm) to reach goal but restricted due to osmolarity. Will plan to increase insulin in PPN to account for additional dextrose in PPN and correctional insulin that has still been needed. 06/24 * 78 year old female with pneumonia, NPO, started on PPN yesterday. * BSG's have responded well to increase in Novolog to cover CHO in TPN yesterday. Will elminate CHO ratio in Novolog but add IV insulin to PPN bag * OK to continue Lantus, but will scale based on BSG PLAN FOR INPATIENT GLYCEMIC CONTROL: * Holding outpatient oral diabetes medications * Basal insulin - Lantus 0-10 units every 12 hours, depending on BSG (see MAR for details) * Bolus insulin - q4h * NovoLog per scale q6h * Goal Range: Low 120 mg/dL - High 160 mg/dL * Correction Factor: 25 mg/dL/unit
[2019-06-28] MEDS: D5W AND 1/2NSS 1,000 ML IV SCH (17:16)
[2019-06-28] MEDS: LORATADINE 10 MG TAB PO SCH (20:51)
[2019-06-28] MEDS: FAMOTIDINE 20 MG TAB PO SCH (20:54)
[2019-06-29] MEDS: LEVOTHYROXINE SODIUM 150 MCG TABLET PO SCH (05:37)
--- NOTE | 2019-06-29 07:44 | Hospitalist Progress Note ---
Date of Service June 29, 2019 Assessment & Plan (1) Sepsis: Healthcare associated pneumonia Acute respiratory failure with hypoxia Sepsis -admission CXR:Bilateral lower lung zone airspace opacities. Pneumonia favored over atelectasis given the history of sepsis. Procalcitonin: 0.34. Influenza screen negative. Negative MRSA screen. Blood Cultures: Negative. SARS-CoV-2: Negative -initially requiring supplementary oxygen -currently, patient on room air -06/27/2019 Right Shoulder X ray: There is no fracture or dislocation. Soft tissues are unremarkable. The bones are osteopenic. The right clavicle is intact. Increased markings within the right lung base. Mild osteoarthritis within the supraclavicular glenohumeral joints. -as of 06/28/2019 patient is on day 9 of antibiotics (initially on Zosyn and Doxycycline, as of 06/27/2019 the Zosyn was switched to Augmentin with Doxycycline continued) Right Shoulder pain -likely from sore muscle as patient generally on bed and need to be repositioned as needed -prn acetaminophen Alzheimer's dementia Dysphagia -Has been progressively worsening since 2 yrs as per family in regards to functional decline such as being nonverbal -CT head:No acute intracranial abnormality. Atrophy and microvascular ischemic changes. -patient has been on Partial Parental Nutrition which was started on 06/24/2019 and then with puree diet starting on 06/26/2019 -06/28/2019: Had long conversation with patient's daughter that patient as of AM of 06/28/2019 of not consistently eating or taking the medications. Have informed her daughters Neetu [phone] and Emily [phone] and discussed this potential barrier to discharge. Plan for 06/28/2019 is to stop the PPN by 4 PM and then start on D5 1/2 normal saline at 60 cc/hr to see if patient can be weaned off PPN and slowly transition to oral intake alone. Patient wrote that she would like to have "salad with dressing and tomato." Despite history of dysphagia concerns in the past, will allow patient for now to try foods beyond pureed textures to see if this can help her transition to oral diet alone -06/29/2019: Patient is seen and examined this AM. Patient able to write in sentences to communicate and nodding her head when asked questions as affirmative responses. She is not in acute distress. She is breathing on room air. In review of systems, she has right should ache that has been noted before. She is able to use her upper extremities to hold clipboard and write with marker. Patient appears upset that previously a nursing home admissions director or nurse accidentally hit her glasses while rolling her. Patient continues to wear her glasses and no facial injuries. Patient is encouraged to have more oral intake today. Patient remains of D5 1/2 normal saline for hydration and supplemental glucose. 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 -Hba1c is 7.2 -holding home dose Januvia and glipizide and is on sliding scale insulin Electrolyte abnormalities (Hypernatremia, Hypokalemia, Hypomagnesemia, Hypophosphatemia) have been corrected Secondary to poor oral intake and dehydration -hypernatremia has resolved and electrolyte deficits are corrected at this time Acute Kidney Injury on Chronic Kidney Disease stage III -Baseline Cr ~ 1.5 -admission Cr:2.85 -renal function back at baseline after IV hydration on this admission and holding of lisinopril and holding home dose Lasix of 20 mg BID -started Lasix as 20 mg IV daily for now as of 06/27/2019 Hypertension -blood pressure stable off lisinopril Urinary Retention -Bladder Scan PRN -on Roberts Catheter Hypothyroidism -on levothyroxine Chronic venous stasis dermatitis GERD -Continue home medications DVT Prophylaxis: Heparin SQ, waffle boots to protect legs/heels from skin injury Code Status DNI/DNR as per previous discussion with patient's daughter/POA with previous hospitalist. daughters Neetu [phone] and Emily [phone] Admission and Anticipated Discharge Date Admission Date: June 20, 2019 Subjective Patient is seen and examined this AM. Patient able to write in sentences to communicate and nodding her head when asked questions as affirmative responses. She is not in acute distress. She is breathing on room air. In review of systems, she has right should ache that has been noted before. She is able to use her upper extremities to hold clipboard and write with marker. Patient appears upset that previously a nursing home admissions director or nurse accidentally hit her glasses while rolling her. Patient continues to wear her glasses and no facial injuries. Patient is encouraged to have more oral intake today. Patient remains of D5 1/2 normal saline for hydration and supplemental glucose. Review of Systems Review of Systems: All systems reviewed & are unremarkable except as noted in Subjective Physical Exam Constitutional: cooperative and comfortable Eyes: PERRL, conjunctivae normal, anicteric sclerae EOM intact bilaterally ENMT: external ear and nose normal, oropharynx normal Neck: normal visual inspection Respiratory: normal respiratory effort, lungs clear to auscultation Cardiovascular: Rate/Rhythm: regular rate and regular rhythm Gastrointestinal (Abdomen): normal bowel sounds, soft, nontender, no hepatosplenomegaly Musculoskeletal: Head/Neck/Chest: normocephalic able to write to communicate Skin: legs in waffle boots Neurologic: awake Psychiatric: Orientation: alert and cooperative Results & Data Results & Data ([facility]) Vital Signs (Past 12 Hours) Vital Signs Temp Pulse Pulse Resp BP Pulse Ox 06/29/19 04:00 37.0 C 62 19 103/53 L 94 06/28/19 23:04 36.9 C 65 16 129/69 93 (1) Sepsis Sepsis acute organ dysfunction status: unspecified Sepsis type: sepsis due to unspecified organism Qualified Code(s): A41.9 - Sepsis, unspecified organism
[2019-06-29 07:58] LABS: Albumin Level 2.2 gm/dl (3.4-5.0); Calcium 9.9 mg/dl (8.5-10.1); Creatinine Clr Calc Pharmacy 39.2 ml/min; Est GFR (African American) 54.5; Magnesium 1.9 mg/dl (1.8-2.4)
[2019-06-29 07:59] LABS: Albumin Globulin Ratio 0.5 (0.9-2); Bilirubin,Total 0.4 mg/dl (0.2-1); Globulin 4.3 gm/dl (2.5-4.0); Total Protein 6.5 gm/dl (6.4-8.2)
[2019-06-29] MEDS: FUROSEMIDE 20 MG in SYRINGE 0 ML IV SCH (08:28)
[2019-06-29] MEDS: DOXYCYCLINE HYCLATE 100 MG in DEXTROSE 5% 100 ML IV SCH ×2 (08:28→21:00)
[2019-06-29] MEDS: BACLOFEN 10 MG TAB PO SCH ×2 (08:35→20:51)
[2019-06-29] MEDS: DOCUSATE SODIUM/SENNA 50/8.6MG TAB PO SCH ×2 (08:35→20:51)
[2019-06-29] MEDS: MAGNESIUM OXIDE 400 MG TAB PO SCH (08:35)
[2019-06-29] MEDS: ASPIRIN 81 MG ECTAB PO SCH (08:35)
[2019-06-29] MEDS: PANTOprazole 40 MG TAB PO SCH (08:35)
[2019-06-29] MEDS: AMOXICILLIN/CLAVULANATE 875 MG TAB PO SCH ×2 (08:36→12:34)
[2019-06-29] MEDS: SODIUM CHLORIDE 0.65% NA SOLN 45 ML (OCEAN) SCH ×4 (08:36→20:52)
[2019-06-29] MEDS: INSULIN ASPART 100 UNITS/ML 3 ML PEN SC SCH ×4 (08:42→20:53)
[2019-06-29] MEDS: INSULIN GLARGINE SOLOSTAR 100 UNITS/ML 3 ML PEN SC SCH ×2 (08:43→20:52)
[2019-06-29] MEDS: HEPARIN SOD 5,000 UNIT/0.5 ML VIAL SQ SCH ×2 (08:43→20:52)
[2019-06-29] MEDS: D5W AND 1/2NSS 1,000 ML IV SCH (08:53)
[2019-06-29] MEDS ORDERED: Nursing to Pharmacy Communication ONE (10:41)
[2019-06-29] MEDS: AMOXICILLIN/CLAVULANATE SUSP 400MG/5ML 50ML BOTTLE PO SCH ×2 (12:12→17:21)
[2019-06-29] MEDS: FAMOTIDINE 20 MG TAB PO SCH (20:51)
[2019-06-29] MEDS: LORATADINE 10 MG TAB PO SCH (20:52)
[2019-06-30] MEDS: D5W AND 1/2NSS 1,000 ML IV SCH (01:39)
[2019-06-30] MEDS: LEVOTHYROXINE SODIUM 150 MCG TABLET PO SCH (06:07)
[2019-06-30] MEDS: FUROSEMIDE 20 MG in SYRINGE 0 ML IV SCH (08:30)
[2019-06-30] MEDS: PANTOprazole 40 MG TAB PO SCH (08:30)
[2019-06-30] MEDS: SODIUM CHLORIDE 0.65% NA SOLN 45 ML (OCEAN) SCH ×4 (08:30→21:27)
[2019-06-30] MEDS: ASPIRIN 81 MG ECTAB PO SCH (08:30)
[2019-06-30] MEDS: MAGNESIUM OXIDE 400 MG TAB PO SCH (08:30)
[2019-06-30] MEDS: HEPARIN SOD 5,000 UNIT/0.5 ML VIAL SQ SCH ×2 (08:31→21:28)
[2019-06-30] MEDS: INSULIN GLARGINE SOLOSTAR 100 UNITS/ML 3 ML PEN SC SCH ×2 (08:31→20:23)
[2019-06-30] MEDS: BACLOFEN 10 MG TAB PO SCH ×2 (08:31→21:32)
[2019-06-30] MEDS: INSULIN ASPART 100 UNITS/ML 3 ML PEN SC SCH ×4 (08:32→20:22)
[2019-06-30] MEDS: DOCUSATE SODIUM/SENNA 50/8.6MG TAB PO SCH ×2 (08:32→21:32)
[2019-06-30] MEDS: AMOXICILLIN/CLAVULANATE SUSP 400MG/5ML 50ML BOTTLE PO SCH ×2 (08:37→17:03)
[2019-06-30] MEDS: DOXYCYCLINE HYCLATE 100 MG in DEXTROSE 5% 100 ML IV SCH ×2 (08:37→21:23)
--- NOTE | 2019-06-30 09:50 | Hospitalist Progress Note ---
Date of Service June 30, 2019 Assessment & Plan (1) Sepsis: Healthcare associated pneumonia Acute respiratory failure with hypoxia Sepsis -admission CXR:Bilateral lower lung zone airspace opacities. Pneumonia favored over atelectasis given the history of sepsis. Procalcitonin: 0.34. Influenza screen negative. Negative MRSA screen. Blood Cultures: Negative. SARS-CoV-2: Negative -initially requiring supplementary oxygen -currently, patient on room air -06/27/2019 Right Shoulder X ray: There is no fracture or dislocation. Soft tissues are unremarkable. The bones are osteopenic. The right clavicle is intact. Increased markings within the right lung base. Mild osteoarthritis within the supraclavicular glenohumeral joints. -as of 06/28/2019 patient is on day 9 of antibiotics (initially on Zosyn and Doxycycline, as of 06/27/2019 the Zosyn was switched to Augmentin with Doxycycline continued) Right Shoulder pain -likely from sore muscle as patient generally on bed and need to be repositioned as needed -prn acetaminophen Alzheimer's dementia Dysphagia -Has been progressively worsening since 2 yrs as per family in regards to functional decline such as being nonverbal -CT head:No acute intracranial abnormality. Atrophy and microvascular ischemic changes. -patient has been on Partial Parental Nutrition which was started on 06/24/2019 and then with puree diet starting on 06/26/2019 -06/28/2019: Had long conversation with patient's daughter that patient as of AM of 06/28/2019 of not consistently eating or taking the medications. Have informed her daughters Neetu [phone] and Emily [phone] and discussed this potential barrier to discharge. Plan for 06/28/2019 is to stop the PPN by 4 PM and then start on D5 1/2 normal saline at 60 cc/hr to see if patient can be weaned off PPN and slowly transition to oral intake alone. Patient wrote that she would like to have "salad with dressing and tomato." Despite history of dysphagia concerns in the past, will allow patient for now to try foods beyond pureed textures to see if this can help her transition to oral diet alone -06/29/2019: Patient is seen and examined this AM. Patient able to write in sentences to communicate and nodding her head when asked questions as affirmative responses. She is not in acute distress. She is breathing on room air. In review of systems, she has right should ache that has been noted before. She is able to use her upper extremities to hold clipboard and write with marker. Patient appears upset that previously a nursing surgical services director or nurse accidentally hit her glasses while rolling her. Patient continues to wear her glasses and no facial injuries. Patient is encouraged to have more oral intake today. Patient remains of D5 1/2 normal saline for hydration and supplemental glucose. -06/30/2019: As per nurse, patient had apple sauce for breakfast. plans to hold D5 1/2 normal saline for now and monitor blood sugars based on patient's oral intake -aspiration precautions -PT/OT evaluations Type 2 diabetes mellitus without superintendent [employer] current use of insulin -Hba1c is 7.2 -holding home dose Januvia and glipizide and is on sliding scale insulin Electrolyte abnormalities (Hypernatremia, Hypokalemia, Hypomagnesemia, Hypophosphatemia) have been corrected Secondary to poor oral intake and dehydration -hypernatremia has resolved and electrolyte deficits are corrected at this time Acute Kidney Injury on Chronic Kidney Disease stage III -Baseline Cr ~ 1.5 -admission Cr:2.85 -renal function back at baseline after IV hydration on this admission and holding of lisinopril and holding home dose Lasix of 20 mg BID -started Lasix as 20 mg IV daily for now as of 06/27/2019, continue Hypertension -blood pressure stable off lisinopril Urinary Retention -Bladder Scan PRN -on Benavidez Catheter Hypothyroidism -on levothyroxine Chronic venous stasis dermatitis GERD -Continue home medications DVT Prophylaxis: Heparin SQ, waffle boots to protect legs/heels from skin injury Code Status DNI/DNR as per previous discussion with patient's daughter/POA with previous hospitalist. daughters Neetu [phone] and Emily [phone] Admission and Anticipated Discharge Date Admission Date: June 20, 2019 Subjective Patient seen and examined in AM. She was sleeping and arousable. She allowed physical exam and went back to sleep. a full review of systems could not be obtained from patient. As per nurse, patient had apple sauce for breakfast. plans to hold D5 1/2 normal saline for now and monitor blood sugars based on patient's oral intake Review of Systems Review of Systems: Unobtainable due to reduced consciousness Physical Exam Constitutional: cooperative and comfortable Eyes: PERRL, conjunctivae normal, anicteric sclerae EOM intact bilaterally ENMT: external ear and nose normal, oropharynx normal Neck: normal visual inspection Respiratory: normal respiratory effort, lungs clear to auscultation Cardiovascular: Rate/Rhythm: regular rate and regular rhythm Gastrointestinal (Abdomen): normal bowel sounds, soft, nontender, no hepatosplenomegaly Musculoskeletal: Head/Neck/Chest: normocephalic legs in waffle boots Neurologic: awake Psychiatric: Orientation: alert and cooperative Genitourinary: + bladder abnormality (benavidez) Results & Data Results & Data ([facility]) Vital Signs (Past 12 Hours) Vital Signs Temp Pulse Resp BP BP Pulse Ox 06/30/19 07:24 36.5 C 62 16 125/74 95 06/29/19 23:29 36.8 C 64 18 124/74 96 (1) Sepsis Sepsis acute organ dysfunction status: unspecified Sepsis type: sepsis due to unspecified organism Qualified Code(s): A41.9 - Sepsis, unspecified organism
--- NOTE | 2019-06-30 10:52 | Pharmacy Report ---
Pharmacy Glycemic Short Note 2 - Date of Service June 30, 2019 - Glycemic Short BSG Results (Last 24 hours): 06/29/19 06/29/19 06/29/19 11:41 16:42 20:05 POC Glucose 188 H 227 H 180 H 06/30/19 07:37 POC Glucose 141 H Outpatient Anti-diabetic Regimen: * Glipizide 10mg po TIDM * Januvia 25mg po daily * A1c = 7.2 % 06/21/19 ASSESSMENT: 06/30/19: * PPN dc'ed yesterday. D51/2NS @ 60ml/hr started when PPN stopped. * Dextrose IVF stopping today - trying PO intake only. D/W hospitalist - insulin regimen will need empirically decreased to prevent hypo w/o dextrose IVF. * Pt received a total of 20 units of insulin over the past 24hrs * 10 units basal * 10 units bolus * Will significantly decrease basal insulin (by ~50%) and set Lantus scale. Bolus insulin parameters are appropriate based on age/weight. Will adjust if needed. 06/28/19: * PPN will stop today at 1600 when current bag finishes. Pt will then receive IVF with dextrose to transition off of PPN and minimize hypoglycemia risk. * Pt is ordered a pureed diabetic diet. * Insulin dosing loosened somewhat today in anticipation of parenteral nutrition discontinuation. Goal, again, is to minimize risk of hypoglycemia. * Will make further adjustments tomorrow, if necessary, when PPN is no longer infusing. 06/25 * Ms. Fagan is on day #2 of PPN. Palliative has been consulted to see patient and plan for now is a trial of PPN. Family members do not think patient would want a permanent feeding tube but will discuss further. * Total SQ insulin received yesterday was 35 units. This is in addition to 12 units of insulin added to PPN last night. 6 units of correctional received since last night's PPN started. * BSGs ranging from 120-177 mg/dL over the past 24 hours * Dextrose in PPN will be increased slightly (135 gm) to reach goal but restricted due to osmolarity. Will plan to increase insulin in PPN to account for additional dextrose in PPN and correctional insulin that has still been needed. 06/24 * 78 year old female with pneumonia, NPO, started on PPN yesterday. * BSG's have responded well to increase in Novolog to cover CHO in TPN yesterday. Will elminate CHO ratio in Novolog but add IV insulin to PPN bag * OK to continue Lantus, but will scale based on BSG PLAN FOR INPATIENT GLYCEMIC CONTROL: * Holding outpatient oral diabetes medications * Basal insulin - Lantus 0-5 units every 12 hours, depending on BSG (see MAR for details) * Bolus insulin - decrease frequency to ACHS * NovoLog per scale * Goal Range: Low 120 mg/dL - High 160 mg/dL * Correction Factor: 25 mg/dL/unit * carb ratio: 1 unit for every 15g CHO consumed
[2019-06-30] MEDS: MICONAZOLE NITRATE POWDER 43 GM EXT PRN (17:12)
[2019-06-30] MEDS: FAMOTIDINE 20 MG TAB PO SCH (21:32)
[2019-06-30] MEDS: LORATADINE 10 MG TAB PO SCH (21:32)
[2019-07-01] MEDS: LEVOTHYROXINE SODIUM 150 MCG TABLET PO SCH (05:27)
[2019-07-01 07:24] LABS: Basophils # (auto) 0.04 K/uL (0-0.2); Basophils % (auto) 0.4 %; Eosinophils % (auto) 3.1 %; Hematocrit (blood only) 31.9 % (37-47); Hemoglobin 10.5 g/dL (12.0-16.0); Immature Granulocytes # (auto) 0.13 K/uL (0.00-0.02); Immature Granulocytes % (auto) 1.3 %; Lymphocytes # (auto) 3.26 K/uL (1.2-3.4); Lymphocytes % (auto) 33.7 %; Mean Corpuscular Hemoglobin 30.5 pg (25-34); Mean Corpuscular Hgb Conc 32.9 g/dL (32-36); Mean Corpuscular Volume 92.7 fL (80-100); Monocytes # (auto) 0.82 K/uL (0.11-0.59); Monocytes % (auto) 8.5 %; Neutrophils # (auto) 5.13 K/uL (1.4-6.5); Platelet Count 274 K/uL (130-400); RDW Coefficient of Variation 14.4 % (11.5-14.5); RDW Standard Deviation 47.5 fL (36.4-46.3); Red Blood Count 3.44 M/uL (4.2-5.4); White Blood Count 9.68 K/uL (4.8-10.8)
[2019-07-01] MEDS: ASPIRIN 81 MG ECTAB PO SCH (08:01)
[2019-07-01] MEDS: INSULIN ASPART 100 UNITS/ML 3 ML PEN SC SCH ×4 (08:01→21:04)
[2019-07-01] MEDS: BACLOFEN 10 MG TAB PO SCH ×2 (08:01→21:03)
[2019-07-01] MEDS: HEPARIN SOD 5,000 UNIT/0.5 ML VIAL SQ SCH ×2 (08:01→21:02)
[2019-07-01] MEDS: DOCUSATE SODIUM/SENNA 50/8.6MG TAB PO SCH ×2 (08:02→21:02)
[2019-07-01] MEDS: PANTOprazole 40 MG TAB PO SCH (08:02)
[2019-07-01] MEDS: INSULIN GLARGINE SOLOSTAR 100 UNITS/ML 3 ML PEN SC SCH ×2 (08:02→21:04)
[2019-07-01] MEDS: SODIUM CHLORIDE 0.65% NA SOLN 45 ML (OCEAN) SCH ×4 (08:02→21:03)
[2019-07-01] MEDS: MAGNESIUM OXIDE 400 MG TAB PO SCH (08:02)
[2019-07-01 08:08] LABS: Albumin Globulin Ratio 0.5 (0.9-2); Albumin Level 2.2 gm/dl (3.4-5.0); BUN Creatinine Ratio 20.6 (10-20); Bilirubin,Total 0.4 mg/dl (0.2-1); Calcium 10.4 mg/dl (8.5-10.1); Creatinine Clr Calc Pharmacy 49.2 ml/min; Est GFR (African American) 71.9; Est GFR (Non-African American) 62.1; Globulin 4.1 gm/dl (2.5-4.0); Magnesium 1.5 mg/dl (1.8-2.4); Potassium 3.5 mmol/L (3.5-5.1); Total Protein 6.3 gm/dl (6.4-8.2)
[2019-07-01] MEDS ORDERED: POTASSIUM CHLORIDE 20 MEQ TABCR PO STA (08:27)
--- NOTE | 2019-07-01 08:40 | Hospitalist Progress Note ---
Date of Service July 01, 2019 Assessment & Plan (1) Sepsis: Healthcare associated pneumonia Acute respiratory failure with hypoxia Sepsis -admission CXR:Bilateral lower lung zone airspace opacities. Pneumonia favored over atelectasis given the history of sepsis. Procalcitonin: 0.34. Influenza screen negative. Negative MRSA screen. Blood Cultures: Negative. SARS-CoV-2: Negative -initially requiring supplementary oxygen -currently, patient on room air -06/27/2019 Right Shoulder X ray: There is no fracture or dislocation. Soft tissues are unremarkable. The bones are osteopenic. The right clavicle is intact. Increased markings within the right lung base. Mild osteoarthritis within the supraclavicular glenohumeral joints. -as of 06/30/2019 patient completed 10 day course of antibiotics (initially on Zosyn and Doxycycline, as of 06/27/2019 the Zosyn was switched to Augmentin with Doxycycline continued) -as of 07/01/2019 monitor off antibiotics Right Shoulder pain -likely from sore muscle as patient generally on bed and need to be repositioned as needed -prn acetaminophen Alzheimer's dementia Dysphagia GERD -Has been progressively worsening since 2 yrs as per family in regards to functional decline such as being nonverbal. on H2 whit[place] and PPI -CT head:No acute intracranial abnormality. Atrophy and microvascular ischemic changes. -patient has been on Partial Parental Nutrition which was started on 06/24/2019 and then with puree diet starting on 06/26/2019 -06/28/2019: Had long conversation with patient's daughter that patient as of AM of 06/28/2019 of not consistently eating or taking the medications. Have informed her daughters Neetu [phone] and Emily [phone] and discussed this potential barrier to discharge. Plan for 06/28/2019 is to stop the PPN by 4 PM and then start on D5 1/2 normal saline at 60 cc/hr to see if patient can be weaned off PPN and slowly transition to oral intake alone. Patient wrote that she would like to have "salad with dressing and tomato." Despite history of dysphagia concerns in the past, will allow patient for now to try foods beyond pureed textures to see if this can help her transition to oral diet alone -06/29/2019: Patient is seen and examined this AM. Patient able to write in sentences to communicate and nodding her head when asked questions as affirmative responses. She is not in acute distress. She is breathing on room air. In review of systems, she has right should ache that has been noted before. She is able to use her upper extremities to hold clipboard and write with marker. Patient appears upset that previously a nursing program manager or nurse accidentally hit her glasses while rolling her. Patient continues to wear her glasses and no facial injuries. Patient is encouraged to have more oral intake today. Patient remains of D5 1/2 normal saline for hydration and supplemental glucose. -06/30/2019: As per nurse, patient had apple sauce for breakfast. 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 07/01/2019 serum magnesium 1.5 and serum potassium 3.5 - give magnesium and potassium supplements -suspect some physiological issues with somewhat higher than normal serum calcium levels but patient also got PPN on this admission - check PTH and ionized calcium levels Acute Kidney Injury on Chronic Kidney Disease stage III -Baseline Cr ~ 1.5 -admission Cr:2.85 -renal function back at baseline after IV hydration on this admission and holding of lisinopril and holding home dose Lasix of 20 mg BID -a trial of IV Lasix 20 mg IV daily started on 06/27/2019 to 06/30/2019, hold Lasix on 07/01/2019 to replete magnesium Hypertension -blood pressure stable off lisinopril Urinary Retention -Bladder Scan PRN -on Roberts Catheter Hypothyroidism -on levothyroxine, check TSH Chronic venous stasis dermatitis DVT Prophylaxis: Heparin SQ, waffle boots to protect legs/heels from skin injury Code Status DNI/DNR as per previous discussion with patient's daughter/POA with previous hospitalist. daughters Neetu [phone] and Emily [phone] Admission and Anticipated Discharge Date Admission Date: June 20, 2019 Subjective baseline non verbal. patient shakes her head no when asked if she was having discomforts. breathing on room air. nurse reports patient ate some food for breakfast this AM Review of Systems Review of Systems: All systems reviewed & are unremarkable except as noted in Subjective Physical Exam Constitutional: comfortable Eyes: PERRL, conjunctivae normal, anicteric sclerae EOM intact bilaterally ENMT: external ear and nose normal, oropharynx normal Neck: normal visual inspection Respiratory: normal respiratory effort Cardiovascular: Rate/Rhythm: regular rate and regular rhythm Gastrointestinal (Abdomen): normal bowel sounds, soft, nontender, no hepatosplenomegaly Musculoskeletal: Head/Neck/Chest: normocephalic legs in Waffle boots Neurologic: baseline non verbal. patient shakes her head no when asked if she was having discomforts. breathing on room air. Psychiatric: Orientation: alert and cooperative Results & Data Results & Data ([facility]) Vital Signs (Past 12 Hours) Vital Signs Temp Pulse Resp BP Pulse Ox 07/01/19 07:33 36.5 C 70 16 118/70 95 06/30/19 23:36 36.8 C 58 L 20 119/69 95 (1) Sepsis Sepsis acute organ dysfunction status: unspecified Sepsis type: sepsis due to unspecified organism Qualified Code(s): A41.9 - Sepsis, unspecified organism
[2019-07-01] MEDS: MAGNESIUM SULFATE / D5W 1 GM/100 ML BAG IV SCH ×2 (08:49→09:43)
--- NOTE | 2019-07-01 09:53 | Pharmacy Report ---
Pharmacy Glycemic Short Note 2 - Date of Service July 01, 2019 - Glycemic Short BSG Results (Last 24 hours): 06/30/19 06/30/19 06/30/19 11:36 16:31 20:10 Glucose POC Glucose 147 H 119 H 129 H 07/01/19 07/01/19 07:09 07:47 Glucose 102 H POC Glucose 99 Outpatient Anti-diabetic Regimen: * Glipizide 10mg po TIDM * Januvia 25mg po daily * A1c = 7.2 % 06/21/19 ASSESSMENT: 07/01/19: * Pt has received 3 units of insulin over the past 24hrs * 3 units of basal insulin * 0 units of bolus insulin * AM fasting BSG slightly below goal range at 99 mg/dl - per scale Lantus will be held this AM for "lower" BSG * PO intake remains low. * Dextrose IVF remains DC/off * No changes needed today. 06/30/19: * PPN dc'ed yesterday. D51/2NS @ 60ml/hr started when PPN stopped. * Dextrose IVF stopping today - trying PO intake only. D/W hospitalist - insulin regimen will need empirically decreased to prevent hypo w/o dextrose IVF. * Pt received a total of 20 units of insulin over the past 24hrs * 10 units basal * 10 units bolus * Will significantly decrease basal insulin (by ~50%) and set Lantus scale. Galdino brown insulin parameters are appropriate based on age/weight. Will adjust if needed. 06/28/19: * PPN will stop today at 1600 when current bag finishes. Pt will then receive IVF with dextrose to transition off of PPN and minimize hypoglycemia risk. * Pt is ordered a pureed diabetic diet. * Insulin dosing loosened somewhat today in anticipation of parenteral nutrition discontinuation. Goal, again, is to minimize risk of hypoglycemia. * Will make further adjustments tomorrow, if necessary, when PPN is no longer infusing. 06/25 * Ms. Fagan is on day #2 of PPN. Palliative has been consulted to see patient and plan for now is a trial of PPN. Family members do not think patient would want a permanent feeding tube but will discuss further. * Total SQ insulin received yesterday was 35 units. This is in addition to 12 units of insulin added to PPN last night. 6 units of correctional received since last night's PPN started. * BSGs ranging from 120-177 mg/dL over the past 24 hours * Dextrose in PPN will be increased slightly (135 gm) to reach goal but restricted due to osmolarity. Will plan to increase insulin in PPN to account for additional dextrose in PPN and correctional insulin that has still been needed. 06/24 * 78 year old female with pneumonia, NPO, started on PPN yesterday. * BSG's have responded well to increase in Novolog to cover CHO in TPN yesterday. Will elminate CHO ratio in Novolog but add IV insulin to PPN bag * OK to continue Lantus, but will scale based on BSG PLAN FOR INPATIENT GLYCEMIC CONTROL: no changes needed at this time. * Holding outpatient oral diabetes medications * Basal insulin - Lantus 0-5 units every 12 hours, depending on BSG * BSG below 140 mg/dl --> 0 units * BSG 140-180 mg/dl --> 3 units * BSG above 180 mg/dl --> 5 units * Bolus insulin - decrease frequency to ACHS * NovoLog per scale * Goal Range: Low 120 mg/dL - High 160 mg/dL * Correction Factor: 25 mg/dL/unit * carb ratio: 1 unit for every 15g CHO consumed
[2019-07-01 14:07] LABS: BUN Creatinine Ratio 17.2 (10-20); Calcium 10.1 mg/dl (8.5-10.1); Creatinine Clr Calc Pharmacy 44.7 ml/min; Est GFR (Non-African American) 55.3; Magnesium 2.1 mg/dl (1.8-2.4); Potassium 3.5 mmol/L (3.5-5.1)
[2019-07-01 14:18] LABS: Phosphorus 2.6 mg/dl (2.5-4.9); Thyroid Stimulating Hormone 0.612 uIu/ml (0.300-4.500)
[2019-07-01] MEDS ORDERED: HYDROmorphone INJ 0.5 MG/0.5 ML SYR IV STA (17:17)
[2019-07-01] MEDS ORDERED: ACETAMINOPHEN 325 MG TAB PO PRN (17:18)
[2019-07-01] MEDS: LORATADINE 10 MG TAB PO SCH (21:04)
[2019-07-01] MEDS: FAMOTIDINE 20 MG TAB PO SCH (21:05)
[2019-07-02] MEDS: LEVOTHYROXINE SODIUM 150 MCG TABLET PO SCH (05:46)
[2019-07-02 07:51] LABS: Calcium 10.4 mg/dl (8.5-10.1); Creatinine Clr Calc Pharmacy 48.2 ml/min; Est GFR (Non-African American) 60.4; Magnesium 1.8 mg/dl (1.8-2.4); Potassium 3.6 mmol/L (3.5-5.1)
--- NOTE | 2019-07-02 09:03 | Hospitalist Progress Note ---
Date of Service July 02, 2019 Assessment & Plan (1) Sepsis: Healthcare associated pneumonia Acute respiratory failure with hypoxia Sepsis -admission CXR:Bilateral lower lung zone airspace opacities. Pneumonia favored over atelectasis given the history of sepsis. Procalcitonin: 0.34. Influenza screen negative. Negative MRSA screen. Blood Cultures: Negative. SARS-CoV-2: Negative -initially requiring supplementary oxygen -currently, patient on room air -06/27/2019 Right Shoulder X ray: There is no fracture or dislocation. Soft tissues are unremarkable. The bones are osteopenic. The right clavicle is intact. Increased markings within the right lung base. Mild osteoarthritis within the supraclavicular glenohumeral joints. -as of 06/30/2019 patient completed 10 day course of antibiotics (initially on Zosyn and Doxycycline, as of 06/27/2019 the Zosyn was switched to Augmentin with Doxycycline continued) -as of 07/01/2019 patient is off antibiotics Right Shoulder pain -likely from sore muscle as patient generally on bed and need to be repositioned as needed -prn acetaminophen Alzheimer's dementia Dysphagia GERD -Has been progressively worsening since 2 yrs as per family in regards to functional decline such as being nonverbal. on H2 whitney and PPI -CT head:No acute intracranial abnormality. Atrophy and microvascular ischemic changes. -patient has been on Partial Parental Nutrition which was started on 06/24/2019 and then with puree diet starting on 06/26/2019 -06/28/2019: Had long conversation with patient's daughter that patient as of AM of 06/28/2019 of not consistently eating or taking the medications. Have informed her daughters Neetu [phone] and Emily [phone] and discussed this potential barrier to discharge. Plan for 06/28/2019 is to stop the PPN by 4 PM and then start on D5 1/2 normal saline at 60 cc/hr to see if patient can be weaned off PPN and slowly transition to oral intake alone. Patient wrote that she would like to have "salad with dressing and tomato." Despite history of dysphagia concerns in the past, will allow patient for now to try foods beyond pureed textures to see if this can help her transition to oral diet alone -06/29/2019: Patient is seen and examined this AM. Patient able to write in sentences to communicate and nodding her head when asked questions as affirmative responses. She is not in acute distress. She is breathing on room air. In review of systems, she has right should ache that has been noted before. She is able to use her upper extremities to hold clipboard and write with marker. Patient appears upset that previously a nursing educator or nurse accidentally hit her glasses while rolling her. Patient continues to wear her glasses and no facial injuries. Patient is encouraged to have more oral intake today. Patient remains of D5 1/2 normal saline for hydration and supplemental glucose. -06/30/2019: As per nurse, patient had apple sauce for breakfast. plans to hold D5 1/2 normal saline for now and monitor blood sugars based on patient's oral intake 07/02/2019: continue oral diet alone, discussed with case operator that patient appears ready for hospital discharge to 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 07/01/2019 serum magnesium 1.5 and serum potassium 3.5 - give magnesium and potassium supplements, serum potassium rising to 3.6 and serum magnesium 1.8 by 07/02/2019. continue supplementation to optimize these numbers -despite mildly elevated serum calcium levels, patient has serum ionized calcium and normal PTH, check vitamin D levels Acute Kidney Injury on Chronic Kidney Disease stage III -Baseline Cr ~ 1.5 -admission Cr:2.85 -renal function back at baseline after IV hydration on this admission and holding of lisinopril and holding home dose Lasix of 20 mg BID -a trial of IV Lasix 20 mg IV daily started on 06/27/2019 to 06/30/2019, hold Lasix on 07/01/2019 to replete magnesium. decrease furosemide regimen to as oral 20 mg every 48 hours starting on 07/02/2019 Hypertension -blood pressure stable off lisinopril Urinary Retention -Bladder Scan PRN while inpatient, has benavidez catheter, can do try a trial of void on 07/02/2019 Hypothyroidism -on levothyroxine, check TSH Chronic venous stasis dermatitis DVT Prophylaxis: Heparin SQ, waffle boots to protect legs/heels from skin injury Code Status DNI/DNR as per previous discussion with patient's daughter/POA with previous hospitalist. daughters Neetu [phone] and Emily [phone] Admission and Anticipated Discharge Date Admission Date: June 20, 2019 Subjective Patient ate food today as her breakfast tray has residual food left over. Patient acknowledges presence of medical doctor and cooperative on exam. She is not in pain and breathing comfortably. Review of Systems Review of Systems: All systems reviewed & are unremarkable except as noted in Subjective Physical Exam Constitutional: cooperative and comfortable Eyes: PERRL, conjunctivae normal, anicteric sclerae EOM intact bilaterally ENMT: external ear and nose normal, oropharynx normal Neck: normal visual inspection Respiratory: normal respiratory effort, lungs clear to auscultation normal respiratory effort Cardiovascular: Rate/Rhythm: regular rate and regular rhythm Gastrointestinal (Abdomen): normal bowel sounds, soft, nontender, no hepatosplenomegaly Musculoskeletal: Head/Neck/Chest: normocephalic legs in waffle boots Neurologic: awake Psychiatric: Orientation: alert and cooperative Genitourinary: + bladder abnormality (benavidez) Results & Data Results & Data ([facility]) Vital Signs (Past 12 Hours) Vital Signs Temp Pulse Resp BP BP Pulse Ox 07/02/19 08:27 36.9 C 57 L 16 132/69 94 07/01/19 22:23 36.4 C L 70 18 107/68 95 (1) Sepsis Sepsis acute organ dysfunction status: unspecified Sepsis type: sepsis due to unspecified organism Qualified Code(s): A41.9 - Sepsis, unspecified organism
[2019-07-02] MEDS ORDERED: POTASSIUM CHLORIDE 20 MEQ TABCR PO STA (09:04)
[2019-07-02] MEDS: MAGNESIUM OXIDE 400 MG TAB PO SCH (09:09)
[2019-07-02] MEDS: DOCUSATE SODIUM/SENNA 50/8.6MG TAB PO SCH ×2 (09:10→20:00)
[2019-07-02] MEDS: BACLOFEN 10 MG TAB PO SCH ×2 (09:10→20:00)
[2019-07-02] MEDS: HEPARIN SOD 5,000 UNIT/0.5 ML VIAL SQ SCH ×2 (09:11→21:44)
[2019-07-02] MEDS: INSULIN GLARGINE SOLOSTAR 100 UNITS/ML 3 ML PEN SC SCH ×2 (09:13→21:44)
[2019-07-02] MEDS: PANTOprazole 40 MG TAB PO SCH (09:14)
[2019-07-02] MEDS: SODIUM CHLORIDE 0.65% NA SOLN 45 ML (OCEAN) SCH ×4 (09:14→20:00)
[2019-07-02] MEDS ORDERED: MAGNESIUM SULFATE / D5W 1 GM/100 ML BAG IV ONE (09:15)
[2019-07-02] MEDS: INSULIN ASPART 100 UNITS/ML 3 ML PEN SC SCH ×4 (09:15→21:52)
[2019-07-02] MEDS ORDERED: FUROSEMIDE 20 MG TAB PO SCH (09:15)
[2019-07-02] MEDS: MICONAZOLE NITRATE POWDER 43 GM EXT PRN (09:21)
[2019-07-02] MEDS ORDERED: FUROSEMIDE 20 MG TAB PO STA (09:22)
[2019-07-02] MEDS: ASPIRIN 81 MG ECTAB PO SCH (09:25)
[2019-07-02] MEDS: FUROSEMIDE 20 MG TAB PO SCH ×2 (09:28→09:33)
--- NOTE | 2019-07-02 14:38 | Palliative Care Progress Note ---
Date of Service July 02, 2019 Assessment & Plan (1) Goals of care, counseling/discussion: - Patient is a 78 yo female patient with PMH DM, hypertension, Alzheimer's dementia, hypothyroidism, CKD III, chronic venous stasis dermatitis, GERD and others, presented to the hospital five days ago with bilateral pneumonia and sepsis from [facility] where she resides. Patient apparently was diagnosed with bronchitis and was not improving on p.o. antibiotics. She continued to worsen, so she was sent to the ED on 06/19. CXR revealed bibasilar pneumonia, WBCs 27.44, hypoxic with sats 88%, creatinine 2.85, sodium 156, albumin 2.9. Patient treated with abx appropriately, as well as IVF. Nephrology was consulted, but kidney function has returned to baseline with treatment. Patient's lab values have all improved- She is now on room air with saturation 94%. Patient's cognitive status took much longer to return-patient was unable to eat, was placed on PPN. Patient has been on a pured diet now since 06/25- advancing diet as tolerated with thickened liquids. Palliative care consulted to discuss goals of care with patient's family. -Dementia-FAST score is 5-6b, indicating moderate to moderately severe dementia. Patient was NOT nonverbal prior to admission-however did often write to communicate. -Patient has a POLST form from January 2018 that states DNR, limited additional interventions, abx if life can be prolonged, and trial of artificial hydration but no feeding tube. Daughters affirm her prior wishes. -Patient slowly improving-not sure of her prior baseline, goals of care is to return to [facility] where she resides. 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 (2) Sepsis: (3) Dementia: (4) Chronic venous insufficiency: (5) Pneumonia: Subjective Patient seen and examined in her room this a.m., no acute distress. Patient is more alert than when seen on prior exam-is communicating with gestures does well as able to write answers. Patient able to follow simple commands, moving all extremities. Patient currently on a pured diet-advancing diet as tolerated. Review of Systems Review of Systems: Patient denies pain, fever, chills, chest pain, shortness of breath, cough or abdominal pain Physical Exam Physical Exam: PE: Patient alert, oriented, no acute distress HEENT: EOMI, hearing within normal limits Respirations: Clear breath sounds bilaterally CV: Regular rate Abdomen: Soft, nontender, positive bowel sounds Extremities: Multiple bruises right upper extremity from blood draw at IV sites, moving all extremities, generalized weakness Neuro: Alert, less confused Results & Data Vital Signs (Past 12 Hours) Vital Signs Temp Pulse Resp BP Pulse Ox 07/02/19 08:27 98.4 F 57 L 16 132/69 94 PG Care Time/CCT Total # of Minutes Spent Total Time Spent with Patient: Total time spent 35 minutes with greater than 50% of the time spent at bedside assessing patient's current status as well as for goals of care. Coding Level of Care Code 11109 Subseq Hosp Care Lvl 3 Diagnoses Goals of care, counseling/discussion Z71.89 Sepsis A41.9 Sepsis acute organ dysfunction status: unspecified Sepsis type: sepsis due to unspecified organism Dementia G30.9; F02.80 Alzheimer's disease onset: unspecified onset Dementia behavioral disturbance: without behavioral disturbance Dementia type: Alzheimer's disease Chronic venous insufficiency I87.2 Pneumonia J18.9 Laterality: bilateral Lung location: lower lobe of lung Pneumonia type: due to unspecified organism Time Spent (min) 35 (1) Sepsis Sepsis acute organ dysfunction status: unspecified Sepsis type: sepsis due to unspecified organism Qualified Code(s): A41.9 - Sepsis, unspecified organism (2) Dementia Alzheimer's disease onset: unspecified onset Dementia behavioral disturbance: without behavioral disturbance Dementia type: Alzheimer's disease Qualified Code(s): G30.9 - Alzheimer's disease, unspecified; F02.80 - Dementia in other diseases classified elsewhere without behavioral disturbance (3) Pneumonia Laterality: bilateral Lung location: lower lobe of lung Pneumonia type: due to unspecified organism Qualified Code(s): J18.9 - Pneumonia, unspecified organism
[2019-07-02] MEDS: LORATADINE 10 MG TAB PO SCH (20:00)
[2019-07-02] MEDS: FAMOTIDINE 20 MG TAB PO SCH (20:00)
[2019-07-03] MEDS: LEVOTHYROXINE SODIUM 150 MCG TABLET PO SCH (05:53)
--- NOTE | 2019-07-03 08:12 | Hospitalist Progress Note ---
Date of Service July 03, 2019 Assessment & Plan (1) Sepsis: Healthcare associated pneumonia Acute respiratory failure with hypoxia Sepsis -admission CXR:Bilateral lower lung zone airspace opacities. Pneumonia favored over atelectasis given the history of sepsis. Procalcitonin: 0.34. Influenza screen negative. Negative MRSA screen. Blood Cultures: Negative. SARS-CoV-2: Negative -initially requiring supplementary oxygen -currently, patient on room air -06/27/2019 Right Shoulder X ray: There is no fracture or dislocation. Soft tissues are unremarkable. The bones are osteopenic. The right clavicle is intact. Increased markings within the right lung base. Mild osteoarthritis within the supraclavicular glenohumeral joints. -as of 06/30/2019 patient completed 10 day course of antibiotics (initially on Zosyn and Doxycycline, as of 06/27/2019 the Zosyn was switched to Augmentin with Doxycycline continued) -as of 07/01/2019 patient is off antibiotics Right Shoulder pain -likely from sore muscle as patient generally on bed and need to be repositioned as needed -prn acetaminophen Alzheimer's dementia Dysphagia GERD -Has been progressively worsening since 2 yrs as per family in regards to functional decline such as being nonverbal. on H2 whitney and PPI -CT head:No acute intracranial abnormality. Atrophy and microvascular ischemic changes. -patient has been on Partial Parental Nutrition which was started on 06/24/2019 and then with puree diet starting on 06/26/2019 -06/28/2019: Had long conversation with patient's daughter that patient as of AM of 06/28/2019 of not consistently eating or taking the medications. Have informed her daughters Neetu [phone] and Emily [phone] and discussed this potential barrier to discharge. Plan for 06/28/2019 is to stop the PPN by 4 PM and then start on D5 1/2 normal saline at 60 cc/hr to see if patient can be weaned off PPN and slowly transition to oral intake alone. Patient wrote that she would like to have "salad with dressing and tomato." Despite history of dysphagia concerns in the past, will allow patient for now to try foods beyond pureed textures to see if this can help her transition to oral diet alone -06/29/2019: Patient is seen and examined this AM. Patient able to write in sentences to communicate and nodding her head when asked questions as affirmative responses. She is not in acute distress. She is breathing on room air. In review of systems, she has right should ache that has been noted before. She is able to use her upper extremities to hold clipboard and write with marker. 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 Patient continues to wear her glasses and no facial injuries. Patient is encouraged to have more oral intake today. Patient remains of D5 1/2 normal saline for hydration and supplemental glucose. -06/30/2019: As per nurse, patient had apple sauce for breakfast. plans to hold D5 1/2 normal saline for now and monitor blood sugars based on patient's oral intake 07/02/2019: continue oral diet alone, discussed with case hardener that patient appears ready for hospital discharge to [facility] which may have available bed on 07/05/2019 -aspiration precautions Type 2 diabetes mellitus without nursing home current use of insulin -Hba1c is 7.2 -holding home dose Januvia and glipizide and is on sliding scale insulin Electrolyte abnormalities (Hypernatremia, Hypokalemia, Hypomagnesemia, Hypophos phatemia) have been corrected Secondary to poor oral intake and dehydration -admission serum sodium 156 and deficiencies in serum potassium/serum magnesium/serum phosphorous -generally these electrolyte deficiencies have been corrected. 07/01/2019 serum magnesium 1.5 and serum potassium 3.5 - give magnesium and potassium supplements, serum potassium rising to 3.6 and serum magnesium 1.8 by 07/02/2019. continue supplementation to optimize these numbers as needed -despite mildly elevated serum calcium levels, patient has serum ionized calcium and normal PTH, vitamin D normal Acute Kidney Injury on Chronic Kidney Disease stage III -Baseline Cr ~ 1.5 -admission Cr:2.85 -renal function back at baseline after IV hydration on this admission and holding of lisinopril and holding home dose Lasix of 20 mg BID -a trial of IV Lasix 20 mg IV daily started on 06/27/2019 to 06/30/2019, hold Lasix on 07/01/2019 to replete magnesium. decrease furosemide regimen to as oral 20 mg every 48 hours starting on 07/02/2019 Hypertension -blood pressure stable off lisinopril Urinary Retention -no benavidez from group home on admission but benavidez was placed early in this hospital stay because of urinary retention -patient had benavidez pulled out on 07/02/2019 but then needed straight cath at night. no benavidez for now. continue to monitor urine output Hypothyroidism -on levothyroxine, TSH of 0.62 is in normal ranges Chronic venous stasis dermatitis DVT Prophylaxis: Heparin SQ, waffle boots to protect legs/heels from skin injury Code Status DNI/DNR as per previous discussion with patient's daughter/POA with previous hospitalist. daughters Neetu [phone] and Emily [phone] disposition: hospital discharge to [facility] which may have available bed on 07/05/2019 Admission and Anticipated Discharge Date Admission Date: June 20, 2019 Subjective Patient seen and examined in AM. She ate good portion of her breakfast. baseline does not speak generally, but she acknowledged presence of medical doctor and allowed for physical exam. when explained to her about [facility] bed available on 07/05/2019, she appears to demonstrate understanding. not in pain. no shortness of breath. there was error of glucose measurement of 328 and the nurse rechecked blood sugars as 144 at physician request. patient had benavidez pulled out on 07/02/2019 but then needed straight cath at night. no benavidez for now. continue to monitor urine output Review of Systems Review of Systems: All systems reviewed & are unremarkable except as noted in Subjective Physical Exam Constitutional: cooperative and comfortable Eyes: PERRL, conjunctivae normal, anicteric sclerae EOM intact bilaterally ENMT: external ear and nose normal, oropharynx normal Neck: normal visual inspection Respiratory: normal respiratory effort, lungs clear to auscultation normal respiratory effort Cardiovascular: Rate/Rhythm: regular rate and regular rhythm Gastrointestinal (Abdomen): normal bowel sounds, soft, nontender, no hepatosplenomegaly Musculoskeletal: Head/Neck/Chest: normocephalic Neurologic: awake Psychiatric: Orientation: alert and cooperative Results & Data Results & Data ([facility]) Vital Signs (Past 12 Hours) Vital Signs Temp Pulse Pulse Resp BP BP Pulse Ox 07/03/19 07:27 36.7 C 60 18 117/68 94 07/03/19 00:00 37.0 C 74 20 120/72 95 (1) Sepsis Sepsis acute organ dysfunction status: unspecified Sepsis type: sepsis due to unspecified organism Qualified Code(s): A41.9 - Sepsis, unspecified organism
[2019-07-03] MEDS: PANTOprazole 40 MG TAB PO SCH (08:40)
[2019-07-03] MEDS: BACLOFEN 10 MG TAB PO SCH ×2 (08:40→20:48)
[2019-07-03] MEDS: DOCUSATE SODIUM/SENNA 50/8.6MG TAB PO SCH ×2 (08:40→20:48)
[2019-07-03] MEDS: SODIUM CHLORIDE 0.65% NA SOLN 45 ML (OCEAN) SCH ×4 (08:40→20:48)
[2019-07-03] MEDS: ASPIRIN 81 MG ECTAB PO SCH (08:41)
[2019-07-03] MEDS: MAGNESIUM OXIDE 400 MG TAB PO SCH (08:41)
[2019-07-03] MEDS: HEPARIN SOD 5,000 UNIT/0.5 ML VIAL SQ SCH ×2 (08:42→20:49)
[2019-07-03] MEDS: INSULIN ASPART 100 UNITS/ML 3 ML PEN SC SCH ×4 (08:42→20:49)
[2019-07-03] MEDS: INSULIN GLARGINE SOLOSTAR 100 UNITS/ML 3 ML PEN SC SCH ×2 (08:45→20:49)
--- NOTE | 2019-07-03 13:31 | Pharmacy Report ---
Pharmacy Glycemic Short Note 2 - Date of Service July 03, 2019 - Glycemic Short BSG Results (Last 24 hours): 07/02/19 07/02/19 07/03/19 16:44 20:19 07:44 POC Glucose 115 H 182 H 328 H* 07/03/19 07/03/19 07:56 11:20 POC Glucose 144 H 144 H Outpatient Anti-diabetic Regimen: * Glipizide 10mg po TIDM * Januvia 25mg po daily * A1c = 7.2 % 06/21/19 Inpatient Glycemic Regimen and BSGs: ASSESSMENT: 07/03/19 * BSGs have been stable, requiring no changes for the past few days * Patient did have an elevated BSG this AM (328 mg/dL) that was likely due to machine error as recheck was 144 mg/dL * PO intake slowly improving. Will plan to keep Lantus ordered as "sliding scale" in case BSGs start to increase with increase in PO intake 07/01/19: * Pt has received 3 units of insulin over the past 24hrs * 3 units of basal insulin * 0 units of bolus insulin * AM fasting BSG slightly below goal range at 99 mg/dl - per scale Lantus will be held this AM for "lower" BSG * PO intake remains low. * Dextrose IVF remains DC/off * No changes needed today. PLAN FOR INPATIENT GLYCEMIC CONTROL: no changes needed at this time. * Holding outpatient oral diabetes medications * Basal insulin - Lantus 0-5 units every 12 hours, depending on BSG * BSG below 140 mg/dl --> 0 units * BSG 140-180 mg/dl --> 3 units * BSG above 180 mg/dl --> 5 units * Bolus insulin * NovoLog per scale * Goal Range: Low 120 mg/dL - High 160 mg/dL * Correction Factor: 25 mg/dL/unit * carb ratio: 1 unit for every 15g CHO consumed
--- NOTE | 2019-07-03 13:47 | Palliative Care Progress Note ---
Date of Service July 03, 2019 Assessment & Plan (1) Goals of care, counseling/discussion: - Patient is a 78 yo female patient with PMH DM, hypertension, Alzheimer's dementia, hypothyroidism, CKD III, chronic venous stasis dermatitis, GERD and others, presented to the hospital five days ago with bilateral pneumonia and sepsis from [facility] where she resides. Patient apparently was diagnosed with bronchitis and was not improving on p.o. antibiotics. She continued to worsen, so she was sent to the ED on 06/19. CXR revealed bibasilar pneumonia, WBCs 27.44, hypoxic with sats 88%, creatinine 2.85, sodium 156, albumin 2.9. Patient treated with abx appropriately, as well as IVF. Nephrology was consulted, but kidney function has returned to baseline with treatment. Patient's lab values have all improved- She is now on room air with saturation 94%. Patient's cognitive status took much longer to return-patient was unable to eat, was placed on PPN. Patient has been on a pured diet now since 06/25- advancing diet as tolerated with thickened liquids. Palliative care consulted to discuss goals of care with patient's family. -Dementia-FAST score is 5-6b, indicating moderate to moderately severe dementia. Patient was NOT nonverbal prior to admission-however did often write to communicate. Patient has been nonverbal during this hospitalization. -Patient has a POLST form from January 2018 that states DNR, limited additional interventions, abx if life can be prolonged, and trial of artificial hydration but no feeding tube. Daughters affirm her prior wishes. -Patient slowly improving- goal is to return to [facility] where she resides. 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 [facility] reportedly does not have a bed available till the due to patient isolation issues -Dysphasia-continue aspiration precautions and thickened liquids, advance diet slowly as tolerated -Goal is to return to [facility]. (2) Sepsis: (3) Dementia: (4) Chronic venous insufficiency: (5) Pneumonia: Subjective Patient seen and examined-patient starting to eat lunch and required some assistance. Patient continues to be nonverbal, is able to communicate by nodding yes or no or writing answers to questions on bedside clipboard. Review of Systems Review of Systems: Patient denies pain, fever, chills, chest pain, shortness of breath, or abdominal pain Physical Exam Physical Exam: PE: Awake and alert, no acute distress HEENT: EOMI, hearing within normal limits Respirations: Clear breath sounds bilaterally, unable to take a deep inspiration CV: Regular rate, no lower extremity edema-legs elevated and patient in bed at the time of exam Abdomen: Soft, nontender Extremities: Generalized weakness Results & Data Vital Signs (Past 12 Hours) Vital Signs Temp Pulse Resp BP Pulse Ox 07/03/19 07:27 98.1 F 60 18 117/68 94 PG Care Time/CCT Total # of Minutes Spent Total Time Spent with Patient: Total time spent 25 minutes with greater than 50% of the time spent at bedside assessing patient's current status and confirming goals of care. Coding Level of Care Code 22651 Subseq Hosp Care Lvl 2 Diagnoses Goals of care, counseling/discussion Z71.89 Sepsis A41.9 Sepsis acute organ dysfunction status: unspecified Sepsis type: sepsis due to unspecified organism Dementia G30.9; F02.80 Alzheimer's disease onset: unspecified onset Dementia behavioral disturbance: without behavioral disturbance Dementia type: Alzheimer's disease Chronic venous insufficiency I87.2 Pneumonia J18.9 Laterality: bilateral Lung location: lower lobe of lung Pneumonia type: due to unspecified organism Time Spent (min) 25 (1) Sepsis Sepsis acute organ dysfunction status: unspecified Sepsis type: sepsis due to unspecified organism Qualified Code(s): A41.9 - Sepsis, unspecified organism (2) Dementia Alzheimer's disease onset: unspecified onset Dementia behavioral disturbance: without behavioral disturbance Dementia type: Alzheimer's disease Qualified Code(s): G30.9 - Alzheimer's disease, unspecified; F02.80 - Dementia in other diseases classified elsewhere without behavioral disturbance (3) Pneumonia Laterality: bilateral Lung location: lower lobe of lung Pneumonia type: due to unspecified organism Qualified Code(s): J18.9 - Pneumonia, unspecified organism
[2019-07-03] MEDS: LORATADINE 10 MG TAB PO SCH (20:48)
[2019-07-03] MEDS: FAMOTIDINE 20 MG TAB PO SCH (20:48)
[2019-07-04] MEDS: LEVOTHYROXINE SODIUM 150 MCG TABLET PO SCH (05:41)
[2019-07-04] MEDS ORDERED: FUROSEMIDE 20 MG TAB PO SCH (09:00)
[2019-07-04] MEDS: ASPIRIN 81 MG ECTAB PO SCH (09:05)
[2019-07-04] MEDS: MAGNESIUM OXIDE 400 MG TAB PO SCH (09:05)
[2019-07-04] MEDS: DOCUSATE SODIUM/SENNA 50/8.6MG TAB PO SCH ×2 (09:05→20:47)
[2019-07-04] MEDS: BACLOFEN 10 MG TAB PO SCH ×2 (09:06→20:47)
[2019-07-04] MEDS: PANTOprazole 40 MG TAB PO SCH (09:06)
[2019-07-04] MEDS: SODIUM CHLORIDE 0.65% NA SOLN 45 ML (OCEAN) SCH ×4 (09:06→20:48)
[2019-07-04] MEDS: HEPARIN SOD 5,000 UNIT/0.5 ML VIAL SQ SCH ×2 (09:07→20:45)
[2019-07-04] MEDS: INSULIN GLARGINE SOLOSTAR 100 UNITS/ML 3 ML PEN SC SCH ×2 (09:07→20:44)
[2019-07-04] MEDS: INSULIN ASPART 100 UNITS/ML 3 ML PEN SC SCH ×4 (09:08→20:44)
--- NOTE | 2019-07-04 12:39 | Hospitalist Progress Note ---
Date of Service July 04, 2019 Assessment & Plan (1) Sepsis: (1) Sepsis: Healthcare associated pneumonia Acute respiratory failure with hypoxia per Dr. Arnulfo Urias's notes: -admission CXR:Bilateral lower lung zone airspace opacities. Pneumonia favored over atelectasis given the history of sepsis. Procalcitonin: 0.34. Influenza screen negative. Negative MRSA screen. Blood Cultures: Negative. SARS-CoV-2: Negative -as of 06/30/2019 patient completed 10 day course of antibiotics (initially on Zosyn and Doxycycline, as of 06/27/2019 the Zosyn was switched to Augmentin with Doxycycline continued) - remains stable overall Right Shoulder pain -06/27/2019 Right Shoulder X ray: There is no fracture or dislocation. Soft tissues are unremarkable. The bones are osteopenic. The right clavicle is intact. Increased markings within the right lung base. Mild osteoarthritis within the supraclavicular glenohumeral joints. - resolved Alzheimer's dementia Dysphagia GERD - per Dr. Arnulfo Urias's notes: -Has been progressively worsening since 2 yrs as per family in regards to functional decline such as being nonverbal. on H2 whitney and PPI -CT head:No acute intracranial abnormality. Atrophy and microvascular ischemic changes. -patient has been on Partial Parental Nutrition which was started on 06/24/2019 and then with puree diet starting on 06/26/2019 - Speech Therapy Eval: pureed diet with nectar thick liquids Type 2 diabetes mellitus without jail current use of insulin -Hba1c is 7.2 -holding home dose Januvia and glipizide - continue sliding scale insulin Electrolyte abnormalities (Hypernatremia, Hypokalemia, Hypomagnesemia, Hypophosphatemia) Secondary to poor oral intake and dehydration - resolved Acute Kidney Injury on Chronic Kidney Disease stage III -Baseline Cr ~ 1.5 -admission Cr:2.85 - given IV NSS, resolved - decreased furosemide regimen to as oral 20 mg every 48 hours starting on 07/02/2019 Hypertension -blood pressure stable off lisinopril Urinary Retention - initially required Roberts Cath - monitor Hypothyroidism -on levothyroxine, TSH of 0.62 Chronic venous stasis dermatitis DVT Prophylaxis: Heparin SQ, waffle boots to protect legs/heels from skin injury Code Status DNI/DNR as per previous discussion with patient's daughter/POA with previous hospitalist. daughters Neetu [phone] and Emily [phone] disposition:anticipate discharge to [facility] when bed available tomorrow Admission and Anticipated Discharge Date Admission Date: June 20, 2019 Subjective ff up for sepsis secondary to pneumonia seen sitting up in bed, comfortable, having breakfast in good spirits states she feels fine overall denies SOB, cough, sputum no other symptoms Review of Systems Review of Systems: All systems reviewed & are unremarkable except as noted in HPI & below Physical Exam Physical Exam: General- oriented x 2, not in distress, speaks in sentences with no effort or accessory muscle use Head- atraumatic Eyes- PERRL, EOMI, anicteric ENT- oropharynx clear Neck- supple, no JVD, no adenopathy, no thyromegaly; carotids +2/2, no bruits appreciated Lungs- clear to auscultation bilaterally, no rales/wheezes Heart- normal rate, regular rhythm; no murmur, no gallop, no rub appreciated Abdomen- normal bowel sounds, nondistended, soft, nontender, no masses or hepatosplenomegaly Extremities- no pretibial edema, no calf tenderness; peripheral pulses intact Neuro- alert, oriented x 2; CN 2-12 grossly intact; motor 5/5 bilaterally;sensation 100% on all extremities; no other gross focal neurologic deficits Skin- warm & dry Results & Data Results & [facility] ([facility]) Vital Signs (Past 12 Hours) Vital Signs Temp Pulse Resp BP Pulse Ox 07/04/19 07:48 36.8 C 57 L 16 126/74 93 (1) Sepsis Sepsis acute organ dysfunction status: unspecified Sepsis type: sepsis due to unspecified organism Qualified Code(s): A41.9 - Sepsis, unspecified organism
[2019-07-04] MEDS: FAMOTIDINE 20 MG TAB PO SCH (20:47)
[2019-07-04] MEDS: LORATADINE 10 MG TAB PO SCH (20:48)
[2019-07-05] MEDS: LEVOTHYROXINE SODIUM 150 MCG TABLET PO SCH (06:03)
--- NOTE | 2019-07-05 08:13 | Pharmacy Report ---
Pharmacy Glycemic Short Note 2 - Date of Service July 05, 2019 - Glycemic Short BSG Results (Last 24 hours): 07/04/19 07/04/19 07/04/19 07:53 11:47 16:48 POC Glucose 102 H 127 H 115 H 07/04/19 07/05/19 20:16 07:46 POC Glucose 157 H 109 H Outpatient Anti-diabetic Regimen: * Glipizide 10mg po TIDM * Januvia 25mg po daily * A1c = 7.2 % 06/21/19 Inpatient Glycemic Regimen and BSGs: ASSESSMENT: 07/04/19 * BSGs remain stable. Patient received a total of 6 units of insulin yesterday (3 units basal/3 units bolus). * Fasting BSG at goal. Advancing diet very slowly. 07/03/19 * BSGs have been stable, requiring no changes for the past few days * Patient did have an elevated BSG this AM (328 mg/dL) that was likely due to machine error as recheck was 144 mg/dL * PO intake slowly improving. Will plan to keep Lantus ordered as "sliding scale" in case BSGs start to increase with increase in PO intake 07/01/19: * Pt has received 3 units of insulin over the past 24hrs * 3 units of basal insulin * 0 units of bolus insulin * AM fasting BSG slightly below goal range at 99 mg/dl - per scale Lantus will be held this AM for "lower" BSG * PO intake remains low. * Dextrose IVF remains DC/off * No changes needed today. PLAN FOR INPATIENT GLYCEMIC CONTROL: no changes needed at this time. * Holding outpatient oral diabetes medications * Basal insulin - Lantus 0-5 units every 12 hours, depending on BSG * BSG below 140 mg/dl --> 0 units * BSG 140-180 mg/dl --> 3 units * BSG above 180 mg/dl --> 5 units * Bolus insulin * NovoLog per scale * Goal Range: Low 120 mg/dL - High 160 mg/dL * Correction Factor: 25 mg/dL/unit * carb ratio: 1 unit for every 15g CHO consumed
[2019-07-05] MEDS: BACLOFEN 10 MG TAB PO SCH (08:40)
[2019-07-05] MEDS: ASPIRIN 81 MG ECTAB PO SCH (08:40)
[2019-07-05] MEDS: SODIUM CHLORIDE 0.65% NA SOLN 45 ML (OCEAN) SCH ×2 (08:40→12:33)
[2019-07-05] MEDS: MAGNESIUM OXIDE 400 MG TAB PO SCH (08:40)
[2019-07-05] MEDS: HEPARIN SOD 5,000 UNIT/0.5 ML VIAL SQ SCH (08:40)
[2019-07-05] MEDS: PANTOprazole 40 MG TAB PO SCH (08:40)
[2019-07-05] MEDS: DOCUSATE SODIUM/SENNA 50/8.6MG TAB PO SCH (08:40)
[2019-07-05] MEDS: INSULIN GLARGINE SOLOSTAR 100 UNITS/ML 3 ML PEN SC SCH (08:41)
[2019-07-05] MEDS: INSULIN ASPART 100 UNITS/ML 3 ML PEN SC SCH ×2 (08:41→12:32)
--- NOTE | 2019-07-05 12:52 | Hospitalist Progress Note ---
Date of Service July 05, 2019 Assessment & Plan (1) Sepsis: Admission and Anticipated Discharge Date Admission Date: June 20, 2019 Sepsis secondary to Healthcare associated pneumonia, with Acute respiratory failure with hypoxia per Dr. Arnulfo Urias's notes: -admission CXR:Bilateral lower lung zone airspace opacities. Pneumonia favored over atelectasis given the history of sepsis. Procalcitonin: 0.34. Influenza screen negative. Negative MRSA screen. Blood Cultures: Negative. SARS-CoV-2: Negative -as of 06/30/2019 patient completed 10 day course of antibiotics (initially on Zosyn and Doxycycline, as of 06/27/2019 the Zosyn was switched to Augmentin with Doxycycline continued) - back to room air - clinically improved, remains stable overall Acute Kidney Injury on Chronic Kidney Disease stage III -Baseline Cr ~ 1.5 -admission Cr:2.85 - given IV NSS, resolved - decreased furosemide regimen to as oral 20 mg every 48 hours starting on 07/02/2019 monitor volume status closely and titrate Lasix accordingly Electrolyte abnormalities (Hypernatremia, Hypokalemia, Hypomagnesemia, Hypophosphatemia) Secondary to poor oral intake and dehydration - resolved Alzheimer's dementia Dysphagia, GERD - per Dr. Arnulfo Urias's notes: -Has been progressively worsening since 2 yrs as per family in regards to functional decline such as being nonverbal. on H2 whitney and PPI -CT head:No acute intracranial abnormality. Atrophy and microvascular ischemic changes. -patient has been on Partial Parental Nutrition which was started on 06/24/2019 and then with puree diet starting on 06/26/2019 - Speech Therapy recommendations: pureed diet with nectar thick liquids aspiration precautions please alternate solids and liquid crush medications Supervise meals Fully alert and upright Give meds in a carrier oral hygiene single bites/small sips/slow rate NO straws Right Shoulder pain -06/27/2019 Right Shoulder X ray: There is no fracture or dislocation. Soft tissues are unremarkable. The bones are osteopenic. The right clavicle is intact. Increased markings within the right lung base. Mild osteoarthritis within the supraclavicular glenohumeral joints. 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 daughters Neetu [phone] and Emily [phone] Disposition return to [facility] today ff up with PCP at [facility] Subjective ff up for pneumonia seen resting in bed, having breakfast alert, pleasant, smiling feels fine overall no chest pain, dyspnea, cough no other symptoms happy to hear she can be discharged today when bed available at [facility] Review of Systems Review of Systems: All systems reviewed & are unremarkable except as noted in HPI & below Physical Exam Physical Exam: General- alert, not in distress, breathing with no effort or accessory muscle use Eyes- anicteric Neck- no JVD Lungs- clear breath sounds bilaterally no crackles no wheezing Heart- normal rate, regular rhythm; no murmurs Abdomen- normal bowel sounds, nondistended, soft, nontender Extremities- no pretibial edema, no calf tenderness Neuro- alert; no gross focal neurologic deficits Skin- warm & dry Results & Data Results & Data ([facility]) Vital Signs (Past 12 Hours) Vital Signs Temp Pulse Resp BP Pulse Ox 07/05/19 07:24 36.5 C 50 L 17 112/66 96
--- NOTE | 2019-07-05 14:02 | Discharge Summary ---
Date of Service July 05, 2019 Admission HPI Per Admitting Provider Patient is a 78-year-old female with history of DM, hypertension, Alzheimer's dementia, hypothyroidism, CKD III, chronic venous stasis dermatitis, GERD and other problems presents with history of productive cough, nausea, vomiting. Patient is a phasic at baseline. History could not be obtained from the patient. Most of the history is obtained from staff at senior living, ER physician and old records. As per staff from senior living, patient has been not feeling well since last 2 weeks. She was initially thought to have bronchitis and completed Levaquin 750 mg for 5 days 10 days ago. Patient was also diagno sed to have E. coli UTI and was treated with Macrobid recently. Outpatient chest x-ray suggestive of pneumonia, and was started on azithromycin yesterday. Covered screen is pending. Patient was noted to be hypoxic--88% on room air. She was noted to be hyponatremic with sodium level 156. Also noted to have acute kidney injury with creatinine levels elevated at 2.85. Patient has been having very poor appetite since last 2 weeks. She was started on pured diet with nectar thick liquids today. No known history of chest pain, recent travel, sick contact. Admission Exam Per Admitting Provider Physical Exam: Vitals signs as noted above General Appearance:Moderately built and nourished, no apparent distress, chronic ill appearing Head: normocephalic, Atraumatic Eyes: normal inspection, EOMI Neck: supple, Trachea midline Respiratory/Chest: Normal breath sounds, CTA, No accessory muscle use Cardiovascular: S1, S2, No murmur Abdomen/GI:Soft, Non tender, Bowel sounds present Extremities/Musculoskelatal:normal inspection, no edema, chronic venous stasis changes Neurologic/Psych:grossly no focal neurological deficits, aphasic Skin: normal color, warm Principal Diagnosis Sepsis secondary to Healthcare associated pneumonia, with Acute respiratory failure with hypoxia Discharge Exam General- alert, not in distress, breathing with no effort or accessory muscle use Eyes- anicteric Neck- no JVD Lungs- clear breath sounds bilaterally no crackles no wheezing Heart- normal rate, regular rhythm; no murmurs Abdomen- normal bowel sounds, nondistended, soft, nontender Extremities- no pretibial edema, no calf tenderness Neuro- alert; no gross focal neurologic deficits Skin- warm & dry Discharge Data Allergies Allergy/AdvReac Type Severity Reaction Status Date / Time No Known Allergies Allergy Intermediate Verified 01/30/18 10:04 Consultations 06/20/19 20:47 Consult Case Management - Discharge Planning Routine 06/21/19 08:00 Consult Nephrology Routine 06/25/19 08:15 Consult Palliative Care Routine Ordered Studies 06/25/19 10:45 CT head/brain wo con Routine Findings: The paranasal sinuses and mastoid air cells are clear. The calvarium and skull base are intact. There is no mass, hematoma, midline shift, acute infarct. White matter hypodensity is nonspecific but suggestive of microvascular ischemic change. The ventricles and sulci demonstrate mild age-related involutional changes. Impression: No acute intracranial abnormality. Atrophy and microvascular ischemic changes. 06/25/19 11:40 MR brain wo con Urgent FINDINGS: Brain parenchyma: There is age-related involutional change noting mild subcortical and periventricular microangiopathic disease. There is no hemorrhage or mass effect. There is no restricted diffusion to suggest acute ischemia. Odell-white matter differentiation is preserved. No extra-axial fluid collection is seen. The cerebellar tonsils are normal in configuration. Ventricles, sulci, and cisterns: Prominent secondary to involutional change. Pituitary and sella: Unremarkable. Intracranial vasculature: Normal flow voids are maintained at the skull base. Orbits: The bony orbits are grossly intact. Orbital contents are normal in appearance. Sinuses and mastoids: There is a small right mastoid effusion. The left mastoid air cells and the paranasal sinuses are clear. Calvarium: Unremarkable. Cervical cord: Partially visualized cervical spinal cord is normal in morphology and signal intensity. IMPRESSION: No acute intracranial abnormality. Hospital Course (1) Sepsis: Sepsis secondary to Healthcare associated pneumonia, with Acute respiratory failure with hypoxia per Dr. Arnulfo Urias's notes: -admission CXR:Bilateral lower lung zone airspace opacities. Pneumonia favored over atelectasis given the history of sepsis. Procalcitonin: 0.34. Influenza screen negative. Negative MRSA screen. Blood Cultures: Negative. SARS-CoV-2: Negative -as of 06/30/2019 patient completed 10 day course of antibiotics (initially on Zosyn and Doxycycline, as of 06/27/2019 the Zosyn was switched to Augmentin with Doxycycline continued) - back to room air - clinically improved, remains stable overall Acute Kidney Injury on Chronic Kidney Disease stage III -Baseline Cr ~ 1.5 -admission Cr:2.85 - given IV NSS, resolved - decreased furosemide regimen to as oral 20 mg every 48 hours starting on 07/02/2019 monitor volume status closely and titrate Lasix accordingly Electrolyte abnormalities (Hypernatremia, Hypokalemia, Hypomagnesemia, Hypophosphatemia) Secondary to poor oral intake and dehydration - resolved Alzheimer's dementia Dysphagia, GERD - per Dr. Arnulfo Urias's notes: -Has been progressively worsening since 2 yrs as per family in regards to functional decline such as being nonverbal. on H2 whitney and PPI -CT head:No acute intracranial abnormality. Atrophy and microvascular ischemic changes. -patient has been on Partial Parental Nutrition which was started on 06/24/2019 and then with puree diet starting on 06/26/2019 - Speech Therapy recommendations: pureed diet with nectar thick liquids aspiration precautions please alternate solids and liquid crush medications Supervise meals Fully alert and upright Give meds in a carrier oral hygiene single bites/small sips/slow rate NO straws Right Shoulder pain -06/27/2019 Right Shoulder X ray: There is no fracture or dislocation. Soft tissues are unremarkable. The bones are osteopenic. The right clavicle is intact. Increased markings within the right lung base. Mild osteoarthritis within the supraclavicular glenohumeral joints. - resolved Type 2 diabetes mellitus without retirement current use of insulin -Hba1c is 7.2 - resume home dose Januvia and glipizide - was given sliding scale insulin Hypertension -blood pressure stable off lisinopril - monitor Urinary Retention - initially required Roberts Cath resolved Hypothyroidism -on levothyroxine, TSH of 0.62 Chronic venous stasis dermatitis DVT Prophylaxis: Heparin SQ, waffle boots to protect legs/heels from skin injury , were given Code Status DNI/DNR as per previous discussion with patient's daughter/POA with previous hospitalist. daughters Neetu [phone] and Emily [phone] Disposition return to [facility] today ff up with PCP at [facility] Total Time Total Time Spent Total Time Spent (In Minutes): 50 minutes Discharge Plan Discharge Items Patient Disposition: Transfer [facility] Reason For Visit: SEPSIS,PNEUMONIA Discharge Diagnosis: Healthcare associated pneumonia Acute respiratory failure with hypoxia Sepsis Electrolyte abnormalities (Hypernatremia, Hypokalemia, Hypomagnesemia, Hypophosphatemia) have been corrected Acute Kidney Injury on Chronic Kidney Disease stage III Type 2 diabetes mellitus without retirement current use of insulin Dysphagia Alzheimer's dementia Condition on Discharge: Good Activity: Per Instructions section Non-emergency contact: Primary Care Provider Call non-emergency contact if: you have any medication questions, your symptoms worsen and you have a fever Follow-up/Referrals: Donald Schofield [Primary Care Provider] - Diet: Carb Consistent or DM2 and Heart Healthy Diet Texture: Pureed (blended smooth) Liquid Consistency: Rienzi thick Addtl Attending Provider Instructions: Monitor volume status closely. Lasix reduced to 20mg every other day. Please refer to accompanying Hospital Discharge Summary for full details. Speech Therapy recommendations: pureed diet with nectar thick liquids aspiration precautions please alternate solids and liquid crush medications Supervise meals Fully alert and upright Give meds in a carrier oral hygiene single bites/small sips/slow rate NO straws Addtl Membership Solicitor Provider Instructions: Skin Care Instructions from wound care nurse on 06/25/2019: "barrier cream to buttocks / upper posterior thighs apply with turn and incontinence care no diapers/briefs" Nephrology Consult note from 06/25/2019 in regards to discharge instructions "recommend weekly bmp x 3 wks at hospital d/c -if these remain normal in terms of chemistries, creatinine can follow up prn" Pending Studies at Discharge: No Studies:: Nephrology Consult note from 06/25/2019 in regards to discharge instructions "recommend weekly basic metabolic panel x 3 wks at hospital d/c -if these remain normal in terms of chemistries, creatinine can follow up prn" Stand-Alone Forms: My [facility] Skilled Items Patient informed of condition?: Yes DNR: Yes Discharge Level of Care: Skilled Communicable Disease: No Discharge Prognosis: Stable Lines: None Urinary Catheter: No Medications and DC Order Prescriptions: New furosemide 20 mg Tablet 20 mg PO Q48H Qty: 30 RF: 0 Continued glipizide 10 mg tablet 10 mg PO TIDM RF: 0 aspirin 81 mg Tablet,Delayed Release (Dr/Ec) 81 mg PO QAM RF: 0 magnesium oxide 400 mg (241.3 mg magnesium) Tablet 400 mg PO QAM RF: 0 omeprazole 20 mg capsule,delayed release(DR/EC) 20 mg PO QAM RF: 0 acetaminophen [Tylenol] 325 mg Tablet 650 mg PO QID PRN (Reason: Pain Scale 1-4) RF: 0 dextromethorphan-guaifenesin 10-100 mg/5 mL Liquid 10 ml PO Q6H PRN (Reason: Cough) RF: 0 sennosides-docusate sodium [Senna-S] 8.6-50 mg Tablet 1 tab-cap PO BID RF: 0 famotidine 20 mg Tablet 20 mg PO HS RF: 0 baclofen 10 mg Tablet 5 mg PO BID RF: 0 levothyroxine 150 mcg tablet 150 mcg PO QAM RF: 0 loratadine [Claritin] 10 mg Tablet 10 mg PO HS RF: 0 sodium chloride [Saline Nasal Mist] 0.65 % Aerosol,Centre 2 spray INTRANASAL QID RF: 0 Januvia 25 mg Tablet 25 mg PO QAM RF: 0 cholecalciferol (vitamin D3) [Vitamin D3] 125 mcg (5,000 unit) Tablet 125 mcg PO QAM RF: 0 Stress Formula with Zinc Tablet 1 tab PO QAM RF: 0 Discontinued lisinopril 10 mg tablet 10 mg PO QAM RF: 0 furosemide 20 mg tablet 20 mg PO BID RF: 0 acetaminophen [Tylenol] 325 mg Tablet 650 mg PO BID RF: 0 azithromycin [Zithromax] 500 mg Tablet 500 mg PO DAILY@0130 RF: 0 Discharge Orders: Discharge Order (Routine); Ordered 07/05/19 Ordered By: Gama Monterroso Admission Data Admit Date/Time: 06/20/19 18:00 Attending Provider: Gama Monterroso Admit Provider: Rudolph Garcia Primary Care Provider: Donald Schofield Other Providers: Chandu, ; Richardson Nieves ; Grecia Parks ; Arnulfo Urias
== END 2019-07-05 15:45 | DRG 871 ==
LOC: ED 12:45 → 2S 18:00 → SUATTDRO 18:00 → 2S 19:44 → 2W 06-21 20:36

== ENCOUNTER 2019-12-13 09:57 | Observation (INO) ==
--- NOTE | 2019-12-13 10:27 | Emergency Department Note ---
Impression & Plan Acute deep vein thrombosis of right iliac vein, Acute deep vein thrombosis (DVT) of right femoral vein ED Provider Note INFORMANT: Patient ED PROVIDER(S): Raphael Clinton MD CHIEF COMPLAINT: Abnormal CT scan PLAN: Disposition: Admitted Condition: Good MEDICAL DECISION MAKING: Patient presented back because of an acute abnormality found on CT imaging regarding a DVT. She was hemodynamically stable. She had blood work repeated. Blood work from yesterday was unremarkable. IV heparin was initiated. Cons ultation was made with the hospitalist service for admission. Triage Nursing notes reviewed and agree them. Prior medical records reviewed regarding the visit yesterday and imaging studies from last night. Vital Signs: reviewed and remarkable for no significant abnormalities Differential diagnosis: DVT, hypercoagulability, infection, trauma, idiopathic, as well as other pathologies. Diagnostics interpreted by me: ECG: Twelve-lead ECG reveals normal sinus rhythm at 61 bpm. Inferior Q waves present. Poor R progression noted anteriorly. There is no ST elevation. N ormal QRS and axis. Cardiac Monitoring:Cardiac monitoring ordered by me: The patient was placed on continuous cardiac monitoring and observed. It revealed a normal sinus rhythm at 60 beats per minute without ectopy or evidence of dysrhythmia. Imaging studies: Consultation(s): [facility] hospitalist service HPI: The patient is a nonverbal 79-year-old year old female who presents to the Emergency Room due to a blood clot found on CT imaging. The patient was in the ER last evening for a medical work-up. CT imaging of the chest showed a chronic embolus without acute process. CT scan of the abdomen and pelvis was initially read by stat rad and the blood clot was not seen. In the morning when the CT scan was over read by our radiologist a thrombosis was identified in the right iliac and right femoral vein. The nursing facility was contacted and the patient was directed back to the emergency department. The patient is nonverbal but does interact well. She denied any chest or abdominal pain. No trouble breathing. Detailed history is limited secondary to the patient's medical status. ROS: Limited secondary to patient's medical status. PAST MEDICAL HISTORY:See Below, sepsis, CKD PAST SURGICAL HISTORY:See Below, hernia repair FAMILY HISTORY:See Below SOCIAL HISTORY:Resides at [facility] HOME MEDICATIONS:See Below ALLERGIES:See Below VITALS:See Below PHYSICAL EXAMINATION: GENERAL: Awake, alert, [id number], in no distress HENT: Normocephalic, atraumatic. Oropharynx unremarkable. EYES: Normal conjunctiva. Sclera non-icteric. NECK: Inspection normal. Non-tender. Supple. No nuchal rigidity. FROM. No masses. RESPIRATORY: Clear to auscultation. No wheezes. No rales. Normal respiratory effort. CARDIAC: Normal rate. Normal rhythm. No murmurs. No rubs. Extremities warm and well perfused. Pulses equal. No JVD. GI: Soft, non-distended. No tenderness to palpation. No rebound or guarding. No masses. RECTAL: Deferred. MUSCULOSKELETAL: Atraumatic. Chest examination reveals no tenderness. The back is symmetrical on inspection without obvious abnormality. There is no CVA tenderness to palpation. No joint edema. LOWER EXTREMITIES: Calves are equal size bilaterally and non-tender. Trace edema. Chronic venous discoloration. NEURO: Normal sensorium. Nonverbal. No focal sensory or motor deficits noted. SKIN: No rash or jaundice noted. Raphael Clinton MD Past Med/Surg History Medical History (Updated 12/14/19 @ 07:25 by Anup Ortega MD) Alzheimer's dementia Chronic venous stasis dermatitis of both lower extremities CKD (chronic kidney disease) stage 3, GFR 30-59 ml/min Dementia Diabetes H/O kidney disease Hypertension Hypothyroid Morbid obesity Surgical History History of hip surgery b/l KVNG History of hysterectomy S/P carpal tunnel release S/P hernia repair Family History Other Family history non-contributory Social History Smoking Status: Never smoker Hx Alcohol Use: No Hx Substance Use: No Preferred Language: Kyrgyz Communication Ability: Non-verbal Communication Ability Comment: uses a pen and paper to make needs known Visual Impairment: Limited Hearing Ability: Normal Pay Per Click Strategist Required: No Beliefs That Will Affect Care: None marital status: Current Living Situation: Long-Term Current Living Situation Comment: [facility] current occupational status: retired Other Information That Helps Us Care for You: No Feels Safe at Home: Yes Safety Concerns: Afraid for Self Assistive Devices: Glasses, Oxygen - at Night and Wheelchair Allergies Allergies Allergy/AdvReac Type Severity Reaction Status Date / Time No Known Allergies Allergy Intermediate Verified 12/13/19 10:43 Home Meds Home Medications Medication Instructions Recorded Confirmed aspirin 81 mg PO QAM 02/03/18 12/13/19 glipizide 10 mg PO BID 02/03/18 12/13/19 magnesium oxide 400 mg PO QAM 02/03/18 12/13/19 omeprazole 20 mg PO DAILYBB 02/03/18 12/13/19 Januvia 25 mg PO QAM 06/20/19 12/13/19 acetaminophen [Tylenol] 650 mg PO Q6H PRN 06/20/19 12/13/19 baclofen 5 mg PO BID 06/20/19 12/13/19 famotidine 20 mg PO HS 06/20/19 12/13/19 levothyroxine 150 mcg PO DAILYBB 06/20/19 12/13/19 loratadine [Claritin] 10 mg PO HS 06/20/19 12/13/19 sennosides-docusate sodium 1 tab PO BID 06/20/19 12/13/19 [Senna-S] sodium chloride [Saline Nasal Mist] 2 spray INTRANASAL QID 06/20/19 12/13/19 bisacodyl 5 mg PO QAM 12/12/19 12/13/19 furosemide 20 mg PO Q OTHER DAY 12/12/19 12/13/19 miconazole nitrate [Desenex] 1 applic TOPICAL BID 12/12/19 12/13/19 multivitamin with minerals 1 tab PO QAM 12/12/19 12/13/19 sitagliptin [Januvia] 25 mg PO QAM 12/13/19 12/13/19 Previous Rx's Medication Instructions Recorded cefdinir 300 mg PO BID 10 Days #20 cap 12/12/19 Results & Data (ED) Vital Signs Vital Signs - 24 hr 12/13/19 10:03 12/13/19 10:08 12/13/19 10:14 Pulse Rate 64 66 66 Pulse Rate from SpO2 Sensor 66 67 Respiratory Rate 18 18 20 Respiratory Effort / Characteristics Non-Labored Spontaneous Respiratory Depth Normal Respiratory Pattern Regular Blood Pressure 137/62 137/62 Blood Pressure Mean 102 87 Pulse Oximetry 96 96 95 Oxygen Delivery Method Room Air Sepsis Recent Fever Within 48 Hours No Sepsis New/Unexplained Change in Mental Status No Sepsis Action Taken by Nursing No Action Required 12/13/19 10:23 12/13/19 10:30 12/13/19 10:31 Pulse Rate 63 59 L 64 Pulse Rate from SpO2 Sensor 60 63 Respiratory Rate 20 16 16 Respiratory Effort / Characteristics Respiratory Depth Respiratory Pattern Blood Pressure 116/79 Blood Pressure Mean 92 Pulse Oximetry 96 97 97 Oxygen Delivery Method Room Air Sepsis Recent Fever Within 48 Hours Sepsis New/Unexplained Change in Mental Status Sepsis Action Taken by Nursing 12/13/19 10:32 12/13/19 11:00 12/13/19 11:30 Pulse Rate 68 63 59 L Pulse Rate from SpO2 Sensor 66 Respiratory Rate 17 14 16 Respiratory Effort / Characteristics Respiratory Depth Respiratory Pattern Blood Pressure Blood Pressure Mean Pulse Oximetry 96 Oxygen Delivery Method Sepsis Recent Fever Within 48 Hours Sepsis New/Unexplained Change in Mental Status Sepsis Action Taken by Nursing Laboratory Data Result diagrams: 12/14/19 05:16 12/14/19 05:16 Lab Results 12/13/19 12/13/19 12/13/19 Range/Units 11:31 11:31 11:31 WBC 9.03 (4.8-10.8) K/uL RBC 4.36 (4.2-5.4) M/uL Hgb 13.3 (12.0-16.0) g/dL Hct 39.6 (37-47) % MCV 90.8 (80-100) fL MCH 30.5 (25-34) pg MCHC 33.6 (32-36) g/dL RDW Std Deviation 43.8 (36.4-46.3) fL RDW Coeff of Valente 13.1 (11.5-14.5) % Plt Count 200 (130-400) K/uL MPV 10.4 (7.4-10.4) fL Immature Gran % (Auto) 0.3 % Neut % (Auto) 61.7 % Lymph % (Auto) 24.0 % [place] % (Auto) 9.6 % Eos % (Auto) 4.2 % Baso % (Auto) 0.2 % Neut # (Auto) 5.56 (1.4-6.5) K/uL Lymph # (Auto) 2.17 (1.2-3.4) K/uL [place] # (Auto) 0.87 H (0.11-0.59) K/uL Eos # (Auto) 0.38 (0-0.5) K/uL Baso # (Auto) 0.02 (0-0.2) K/uL Immature Gran # (Auto) 0.03 H (0.00-0.02) K/uL PT 10.9 (9.0-12.0) Seconds INR 1.0 (0.9-1.1) APTT 27.0 (21.0-31.0) Seconds PTT Ratio 1.0 Sodium 140 (136-145) mmol/L Potassium 4.0 (3.5-5.1) mmol/L Chloride 107 (98-107) mmol/L Carbon Dioxide 25 (21-32) mmol/L Anion Gap 8.0 (3-11) BUN 21 H (7-18) mg/dl Creatinine 0.90 (0.6-1.2) mg/dl Est Cr Clr Drug Dosing 51.1 ml/min Est GFR ( Amer) 70.5 Est GFR (Non-Af Amer) 60.8 BUN/Creatinine Ratio 23.0 H (10-20) Glucose 101 H (70-99) mg/dl Calcium 10.2 H (8.5-10.1) mg/dl Total Bilirubin 0.3 (0.2-1) mg/dl AST 12 L (15-37) U/L ALT 16 (12-78) U/L Alkaline Phosphatase 85 (45-117) U/L Troponin I < 0.015 (0-0.045) ng/ml Total Protein 7.4 (6.4-8.2) gm/dl Albumin 3.3 L (3.4-5.0) gm/dl Globulin 4.1 H (2.5-4.0) gm/dl Albumin/Globulin Ratio 0.8 L (0.9-2) Administered Medications Baclofen (Baclofen 10 Mg Tab) 5 mg PO BID TAURUS Stop: 01/12/20 20:59 Last Admin: 12/13/19 20:53 Dose: 5 mg Documented by: [id number] Famotidine (Famotidine 20 Mg Tab) 20 mg PO HS TAURUS Stop: 01/12/20 20:59 Last Admin: 12/13/19 20:53 Dose: 20 mg Documented by: [id number] Heparin Sodium/Dextrose (Heparin Sodium/Dextrose) 25,000 units in 500 mls @ 23 mls/hr IV .[id number] [facility]; Protocol Stop: 01/12/20 10:29 Last Titration: 12/14/19 06:29 Dose: 0 units/hr, 0 mls/hr Documented by: [id number] Cosigned by: [id number] Titration: 12/13/19 23:20 Dose: 950 units/hr, 19 mls/hr Documented by: [id number] Cosigned by: [id number] Titration: 12/13/19 20:00 Dose: 0 units/hr, 0 mls/hr Documented by: [id number] Cosigned by: [id number] Admin: 12/13/19 11:47 Dose: 1,150 units/hr, 23 mls/hr Documented by: [id number] Cosigned by: [id number] Insulin Aspart (Insulin Aspart 100 Units/Ml 3 Ml Pen) 0 units SC ACHS [facility]; Protocol Stop: 01/12/20 16:29 Last Admin: 12/13/19 21:23 Dose: 1 units Documented by: [id number] Cosigned by: [id number] Admin: 12/13/19 17:23 Dose: 2 units Documented by: [id number] Cosigned by: [id number] Insulin Glargine (Insulin Glargine Solostar 100 Units/Ml 3 Ml Pen) 0 units SC BID [facility]; Protocol Stop: 01/12/20 20:59 Last Admin: 12/13/19 21:23 Dose: 3 units Documented by: [id number] Cosigned by: [id number] Levothyroxine Sodium (Levothyroxine Sodium 150 Mcg Tablet) 150 mcg PO DAILYBB [facility] Stop: 01/13/20 06:29 Last Admin: 12/14/19 06:11 Dose: 150 mcg Documented by: [id number] Loratadine (Loratadine 10 Mg Tab) 10 mg PO HS TAURUS Stop: 01/12/20 20:59 Last Admin: 12/13/19 20:53 Dose: 10 mg Documented by: [id number] Miconazole Nitrate (Miconazole Nitrate Powder 43 Gm) 1 appln TOP BID TAURUS Stop: 01/12/20 20:59 Last Admin: 12/13/19 20:53 Dose: 1 appln Documented by: [id number] Pantoprazole Sodium (Pantoprazole 40 Mg Tab) 40 mg PO DAILYBB [facility] Stop: 01/13/20 06:29 Last Admin: 12/14/19 06:11 Dose: 40 mg Documented by: [id number] Senna/Docusate Sodium (Docusate Sodium/Senna 50/8.6mg Tab) 1 tab PO BID [facility] Stop: 01/12/20 20:59 Last Admin: 12/13/19 20:53 Dose: Not Given Documented by: [id number] Simethicone (Simethicone 80 Mg Chew) 80 mg PO Q6H [facility] Stop: 01/12/20 15:59 Last Admin: 12/14/19 03:48 Dose: 80 mg Documented by: [id number] Admin: 12/13/19 21:07 Dose: 80 mg Documented by: [id number] Admin: 12/13/19 17:23 Dose: 80 mg Documented by: [id number] Sodium Chloride (Sodium Chloride 0.65% Na Soln 45 Ml ([place])) 2 sprays JUAQUIN QID [facility] Stop: 01/12/20 13:03 Last Admin: 12/13/19 20:53 Dose: 2 sprays Documented by: [id number] Admin: 12/13/19 17:23 Dose: 2 sprays Documented by: [id number] Admin: 12/13/19 16:46 Dose: Not Given Documented by: [id number] Discontinued Medications Heparin Sodium (Porcine) (Heparin Sod (Porcine) 1000 Unit/Ml 10 Ml Vial) Confirm Administered Dose 10,000 units .ROUTE .STK-MED ONE Stop: 12/13/19 11:43 Last Admin: 12/13/19 11:49 Dose: 5,000 units Documented by: [id number] Cosigned by: [id number] Heparin Sodium/Dextrose (Heparin Iv Standard With Bolus) 1 ea N/A NOW STA; Protocol Stop: 12/13/19 10:19 Last Admin: 12/13/19 11:48 Dose: 1 ea Documented by: [id number] Sodium Chloride (Nss 1000ml) 1,000 mls @ 125 mls/hr IV .Q8H STA Stop: 12/13/19 18:17 Last Infusion: 12/13/19 14:37 Dose: 0 mls/hr Documented by: [id number] Admin: 12/13/19 12:18 Dose: 125 mls/hr Documented by: [id number] Discharge Plan Visit Data Chief Complaint: Abdominal Pain Stated Complaint: abd pain / [facility] ED Provider: Raphael Clinton Discharge Problem: Acute deep vein thrombosis of right iliac vein, Acute deep vein thrombosis (DVT) of right femoral vein Patient Disposition: Home - Self-Care Discharge Instructions Interventions: ED Discharge Assessment Last Done: 12/13/19 12:19
[2019-12-13] MEDS ORDERED: HEPARIN SOD (PORCINE) 1000 UNIT/ML 10 ML VIAL ONE (11:42)
[2019-12-13 11:47] LABS: Basophils # (auto) 0.02 K/uL (0-0.2); Basophils % (auto) 0.2 %; Eosinophils # (auto) 0.38 K/uL (0-0.5); Eosinophils % (auto) 4.2 %; Hematocrit (blood only) 39.6 % (37-47); Hemoglobin 13.3 g/dL (12.0-16.0); Immature Granulocytes # (auto) 0.03 K/uL (0.00-0.02); Immature Granulocytes % (auto) 0.3 %; Lymphocytes # (auto) 2.17 K/uL (1.2-3.4); Mean Corpuscular Hemoglobin 30.5 pg (25-34); Mean Corpuscular Hgb Conc 33.6 g/dL (32-36); Mean Corpuscular Volume 90.8 fL (80-100); Mean Platelet Volume 10.4 fL (7.4-10.4); Monocytes # (auto) 0.87 K/uL (0.11-0.59); Monocytes % (auto) 9.6 %; Neutrophils # (auto) 5.56 K/uL (1.4-6.5); Neutrophils % (auto) 61.7 %; Platelet Count 200 K/uL (130-400); RDW Coefficient of Variation 13.1 % (11.5-14.5); RDW Standard Deviation 43.8 fL (36.4-46.3); Red Blood Count 4.36 M/uL (4.2-5.4); White Blood Count 9.03 K/uL (4.8-10.8)
[2019-12-13] MEDS: HEPARIN SODIUM/DEXTROSE 25,000 UNITS/500 ML BAG IV SCH (11:47)
[2019-12-13] MEDS: SODIUM CHLORIDE 0.9% 1000ML 1,000 ML IV STA ×2 (11:49→12:18)
[2019-12-13 12:04] LABS: Alanine Aminotransferase 16 U/L (12-78); Albumin Level 3.3 gm/dl (3.4-5.0); Aspartate Aminotransferase 12 U/L (15-37); Blood Urea Nitrogen 21 mg/dl (7-18); Calcium 10.2 mg/dl (8.5-10.1); Carbon Dioxide 25 mmol/L (21-32); Chloride 107 mmol/L (98-107); Creatinine Clr Calc Pharmacy 51.1 ml/min; Est GFR (African American) 70.5; Est GFR (Non-African American) 60.8; Glucose 101 mg/dl (70-99); Prothrombin Time 10.9 Seconds (9.0-12.0); Sodium 140 mmol/L (136-145)
[2019-12-13 12:09] LABS: Albumin Globulin Ratio 0.8 (0.9-2); Alkaline Phosphatase 85 U/L (45-117); Bilirubin,Total 0.3 mg/dl (0.2-1); Globulin 4.1 gm/dl (2.5-4.0); Total Protein 7.4 gm/dl (6.4-8.2); Troponin I < 0.015 ng/ml (0-0.045)
--- NOTE | 2019-12-13 12:59 | History & Physical Report ---
Date of Service December 13, 2019 Assessment & Plan (1) Chronic pulmonary embolism: Continue IV heparin drip overnight. I do not suspect this is causing her symptoms and likely chronic from immobility. (2) Acute deep vein thrombosis of right iliac vein: Will get US venous doppler to assess complete size and possible need for vascular consult. Suspect secondary to immobility. (3) Acute deep vein thrombosis (DVT) of right femoral vein: As above (4) Chills: Subjective chills with recent nasal congestion, will get COVID-19 swab (5) Abdominal pain: This appears to be her largest complaint and reason for ER visit last night. Do not suspect caused by DVT as above. ?abdominal bloating from gas. Patient does not wish to take further laxatives. Will start simethicone to see if helpful. (6) Constipation: As above (7) CKD (chronic kidney disease) stage 3, GFR 30-59 ml/min: At baseline (8) Aphasia: Longstanding. Notable to be a aphasia since her pneumonia in June per palliative care notes at that time. (9) Alzheimer's dementia: On no medication for this. Daughter reports she was missing medications at home, not able to take, now resides at [facility]. (10) Diabetes: HbA1c with a.m. labs Hold home medication. Consult pharmacy for glycemic control with basal bolus insulin. (11) Hypothyroid: TSH WNL in June. Suspect previously elevated due to noncompliance. Continue levothyroxine 150 mcg p.o. daily. (12) Hypertension: Continue Lasix 20 mg every other day. (13) Coronary artery disease: Continue aspirin. Suspect muscle metoprolol due to bradycardia. Unclear why she is not on a statin. Recommend following up outpatient. (14) GERD (gastroesophageal reflux disease): Continue famotidine 20 mg p.o. at bedtime (15) Oropharyngeal dysphagia: Patient reports ability to manage regular food. Aspiration precautions Admission and Anticipated Discharge Date Admission Date: December 13, 2019 History of Present Illness Chief Complaint: DVT on CT Primary Care Provider: Horacio Schofield Angeline Fagan is a 79-year-old female who presents to the ER from [facility] as a call back from the ER due to final read on her CT A/P with right common femoral and iliac vein DVT. She was seen last night in the ER due to chest/abdominal pain which started after eating. Extensive workup at that time was relatively unremarkable for abdominal pain other than gas in her transverse colon with moderate fecal retention. No nausea, vomiting, melena. She reports h aving a large BM in the ER last night prior to the CT which helped relieve her abdominal pain although. Cholelithiasis noted on ultrasound but suspicion for cholecystitis. She was prescribed cefdinir although I am unclear on the diagnosis for this. She does report chills with nasal congestion and associated cough for the past 2 days. When coughing this causes her chest pain which is mainly around both shoulders. She also gets this pain taking deep breaths. No pain at the current time. He denies any shortness of breath, leg pain, leg swelling, claudication. She is wheelchair-bound. History is difficult to take from the patient as she has mild dementia but mainly is non-verbal therefore takes a long time to communicate anything via her writing and computer. She is orientated x3 and able to remember events from last night. Allergies Allergy/AdvReac Type Severity Reaction Status Date / Time No Known Allergies Allergy Intermediate Verified 12/13/19 10:43 Home Medications Home Medications Medication Instructions Recorded Confirmed Type aspirin 81 mg PO QAM 02/03/18 12/13/19 History glipizide 10 mg PO BID 02/03/18 12/13/19 History magnesium oxide 400 mg PO QAM 02/03/18 12/13/19 History omeprazole 20 mg PO DAILYBB 02/03/18 12/13/19 History Januvia 25 mg PO QAM 06/20/19 12/13/19 History acetaminophen [Tylenol] 650 mg PO Q6H PRN 06/20/19 12/13/19 History baclofen 5 mg PO BID 06/20/19 12/13/19 History famotidine 20 mg PO HS 06/20/19 12/13/19 History levothyroxine 150 mcg PO DAILYBB 06/20/19 12/13/19 History loratadine [Claritin] 10 mg PO HS 06/20/19 12/13/19 History sennosides-docusate sodium 1 tab PO BID 06/20/19 12/13/19 History [Senna-S] sodium chloride [Saline Nasal Mist] 2 spray INTRANASAL QID 06/20/19 12/13/19 History bisacodyl 5 mg PO QAM 12/12/19 12/13/19 History cefdinir 300 mg PO BID 10 Days #20 cap 12/12/19 12/13/19 Rx furosemide 20 mg PO Q OTHER DAY 12/12/19 12/13/19 History miconazole nitrate [Desenex] 1 applic TOPICAL BID 12/12/19 12/13/19 History multivitamin with minerals 1 tab PO QAM 12/12/19 12/13/19 History sitagliptin [Januvia] 25 mg PO QAM 12/13/19 12/13/19 History Past Med/Surg History Medical History Alzheimer's dementia Chronic venous stasis dermatitis of both lower extremities CKD (chronic kidney disease) stage 3, GFR 30-59 ml/min Dementia Diabetes H/O kidney disease Hypertension Hypothyroid Morbid obesity Surgical History History of hip surgery b/l KVNG History of hysterectomy S/P carpal tunnel release S/P hernia repair Family History Other Family history non-contributory Social History Smoking Status: Never smoker Hx Alcohol Use: No Hx Substance Use: No Preferred Language: Icelandic Communication Ability: Non-verbal Communication Ability Comment: uses a pen and paper to make needs known Visual Impairment: Limited Hearing Ability: Normal Sizing End Bander Required: No Beliefs That Will Affect Care: None marital status: Current Living Situation: Intermediate Current Living Situation Comment: [facility] current occupational status: retired Other Information That Helps Us Care for You: No Feels Safe at Home: Yes Safety Concerns: Afraid for Self Assistive Devices: Glasses, Oxygen - at Night and Wheelchair Review of Systems Review of Systems: All systems reviewed & are unremarkable except as noted in HPI & below Physical Exam Constitutional: well developed; + not well nourished and no acute distress Eyes: PERRL, conjunctivae normal, anicteric sclerae ENMT: external ear and nose normal, oropharynx normal Neck: trachea midline, no thyromegaly Respiratory: normal respiratory effort, lungs clear to auscultation Cardiovascular: Rate/Rhythm: regular rate and regular rhythm Heart Sounds: no murmur Extremities: + pedal edema (trace equal b/l); + abnormal capillary refill (Increased in right foot 5-6 s, cooler to touch) Gastrointestinal (Abdomen): normal bowel sounds, soft, nontender, no hepatosplenomegaly Musculoskeletal: Pain in bilateral shoulders on any movement Skin: no rashes, warm and dry Neurologic: moves all extremities, + focal motor deficit (Wheelchair-bound, no lateralizing weakness) and awake; not confused Motor/Sensory: no tremor Psychiatric: A+Ox3, euthymic affect Genitourinary: no CVA tenderness Results & Data Results & Data ([facility]) Vital Signs (Past 12 Hours) Vital Signs Pulse Resp BP Pulse Ox 12/13/19 12:00 92 H 23 164/96 H 95 12/13/19 11:30 59 L 16 12/13/19 11:00 63 14 12/13/19 10:32 68 17 96 12/13/19 10:31 64 16 116/79 97 12/13/19 10:30 59 L 16 97 12/13/19 10:23 63 20 96 12/13/19 10:14 66 20 137/62 95 12/13/19 10:08 66 18 96 12/13/19 10:03 64 18 137/62 96 Diagnostic Findings XR chest 1V portable IMPRESSION: 1. Rotated study. No acute findings. 2. Bibasilar opacities suggestive of atelectasis. CT ANGIOGRAM OF THE CHEST IMPRESSION: 1. Significantly streak and motion compromised examination. 2. There is a large thin linear filling defect identified within the right lower lobar pulmonary artery. This suggests chronic pulmonary embolus. 3. No additional findings are identified to suggest acute central pulmonary embolus within the main, lobar, or proximal segmental pulmonary arteries. 4. There is no airspace consolidation or pleural effusion. 5. Mild cardiac enlargement. 6. Additional findings as above. CT abd pelvis IV con only IMPRESSION: 1. Right common femoral and iliac vein DVT. This finding was not described in the preliminary report and will be called to the emergency room. 2. Cholelithiasis 3. No evidence of bowel obstruction. No evidence of free air 4. Advanced degenerative changes within the lumbar spine with multilevel severe spinal stenosis ULTRASOUND RIGHT UPPER QUADRANT ABDOMEN IMPRESSION: Cholelithiasis without sonographic evidence of acute cholecystitis. ECG Indication: abdominal pain Rate (beats per minute): 61 Rhythm: normal sinus Findings: no acute ischemic change Comparison ECG Date: from (December 12, 1999) Change: no significant change Code Status & VTE Plan VTE Prophylaxis Plan VTE Prophylaxis will be ordered: Yes PG Care Time/CCT Total # of Minutes Spent Total Time Spent with Patient: Total time spent is greater than 50% in coordination of care (as documented) at patient's floor/unit and/or counseling patient: Coding Level of Care Code 17853 OBS Care - Level 3 Diagnoses Chronic pulmonary embolism I27.82 Acute deep vein thrombosis of right iliac vein I82.421 Acute deep vein thrombosis (DVT) of right femoral vein I82.411 Chills R68.83 Abdominal pain R10.9 Constipation K59.00 CKD (chronic kidney disease) stage 3, GFR 30-59 ml/min N18.3 Aphasia R47.01 Alzheimer's dementia G30.9; F02.80 Diabetes E11.9 Hypothyroid E03.9 Hypertension I10 Coronary artery disease I25.10 GERD (gastroesophageal reflux disease) K21.9 Oropharyngeal dysphagia R13.12
[2019-12-13] MEDS ORDERED: ACETAMINOPHEN 325 MG TAB PO PRN ×2 (13:04)
[2019-12-13] MEDS ORDERED: PHARMACY GLYCEMIC MGMT CONSULT PRN (16:16)
[2019-12-13] MEDS ORDERED: DEXTROSE 50% 50 ML SYRINGE IV PRN (16:30)
[2019-12-13] MEDS ORDERED: GLUCOSE 40% GEL 15 GM TUBE PO PRN (16:30)
[2019-12-13] MEDS ORDERED: CARBOHYDRATES FOR HYPOGLYCEMIA PO PRN (16:30)
[2019-12-13] MEDS ORDERED: GLUCAGON FOR INJ 1 MG VIAL IM PRN (16:30)
[2019-12-13] MEDS ORDERED: GLUCOSE 10 TABS/TUBE PO PRN (16:30)
--- NOTE | 2019-12-13 16:40 | Pharmacy Report ---
Glycemic Control Consultation - Date of Service December 13, 2019 - Scope Scope: Glycemic Pharmacist consulted for glycemic control and to write orders per [facility] inpatient glycemic control protocol. - Objective Weight: 77.6 kg Accuchecks BSG (last 24hrs): 12/13/19 11:31 Glucose 101 H Laboratory Data (last 24hrs): 12/13/19 11:31 Potassium 4.0 Carbon Dioxide 25 Anion Gap 8.0 Creatinine 0.90 Est Cr Clr Drug Dosing 51.1 - Recent Pertinent Medications Outpatient Anti-diabetic Regimen: * Januvia 25 mg PO qAM + Glipizide 10 mg PO BIDM * A1c = 6.5% (08/27/2019) * Updated HbA1c ordered Risk Factors for Insulin Resistance: * IVF: * Heparin gtt * Diet: * T2DM - Assessment & Plan Assessment & Plan: ASSESSMENT: * 79 yo F admitted secondary to DVT. Pharmacy is consulted for inpatient glycemic management. Patient is previously known to our service. * Patient is ordered a diet and eating. Also on a heparin drip for DVT which contains dextrose. * Admission BSG was 101 mg/dL * Will start basal bolus insulin regimen based on previous admission data. Targeting a goal range of 110-140 mg/dL. PLAN FOR INPATIENT GLYCEMIC CONTROL: * Holding outpatient oral diabetes medications * Basal insulin * Lantus 0-5 units SQ BID (see eMAR for more details) * Bolus insulin * NovoLog per scale ACHS or Q6hrs while NPO * Goal Range: Low 110 mg/dL - High 140 mg/dL * Correction Factor: 25 mg/dL/unit * Nutritional / Prandial insulin per carb ratio of 1 unit per 15 grams CHO consumed * Please note that the plan above was derived based on current level of insulin resistance and hospital stress. These recommendations are appropriate for inpatient admission only. Plan of care upon discharge will need to be reassessed to avoid potential outpatient hypo/hyperglycemia. Thank you.
[2019-12-13] MEDS: SODIUM CHLORIDE 0.65% NA SOLN 45 ML (OCEAN) NAE SCH ×3 (16:46→20:53)
[2019-12-13] MEDS: SIMETHICONE 80 MG CHEW PO SCH ×2 (17:23→21:07)
[2019-12-13] MEDS: INSULIN ASPART 100 UNITS/ML 3 ML PEN SC SCH ×2 (17:23→21:23)
[2019-12-13 19:59] LABS: Partial Thromboplastin Ratio > 5.0; Partial Thromboplastin Time > 139.0 Seconds (21.0-31.0)
[2019-12-13] MEDS: BACLOFEN 10 MG TAB PO SCH (20:53)
[2019-12-13] MEDS: FAMOTIDINE 20 MG TAB PO SCH (20:53)
[2019-12-13] MEDS: MICONAZOLE NITRATE POWDER 43 GM TOP SCH (20:53)
[2019-12-13] MEDS: DOCUSATE SODIUM/SENNA 50/8.6MG TAB PO SCH (20:53)
[2019-12-13] MEDS: LORATADINE 10 MG TAB PO SCH (20:53)
[2019-12-13 21:20] LABS: Partial Thromboplastin Ratio 3.8; Partial Thromboplastin Time 104.8 Seconds (21.0-31.0)
[2019-12-13] MEDS: INSULIN GLARGINE SOLOSTAR 100 UNITS/ML 3 ML PEN SC SCH (21:23)
[2019-12-13 22:02] LABS: Partial Thromboplastin Ratio 4.4
[2019-12-13 23:13] LABS: Partial Thromboplastin Ratio 2.4
[2019-12-13 23:16] LABS: Partial Thromboplastin Time 67.6 Seconds (21.0-31.0)
[2019-12-14] MEDS: SIMETHICONE 80 MG CHEW PO SCH ×4 (03:48→21:03)
[2019-12-14 05:44] LABS: Hematocrit (blood only) 37.4 % (37-47); Hemoglobin 12.4 g/dL (12.0-16.0); Mean Corpuscular Hemoglobin 29.9 pg (25-34); Mean Corpuscular Hgb Conc 33.2 g/dL (32-36); Mean Corpuscular Volume 90.1 fL (80-100); Mean Platelet Volume 10.3 fL (7.4-10.4); Platelet Count 206 K/uL (130-400); RDW Coefficient of Variation 13.2 % (11.5-14.5); RDW Standard Deviation 43.3 fL (36.4-46.3); Red Blood Count 4.15 M/uL (4.2-5.4); White Blood Count 8.75 K/uL (4.8-10.8)
--- NOTE | 2019-12-14 05:55 | Electrocardiogram Report ---
Test Reason : Blood Pressure : / mmHG Vent. Rate : 061 BPM Atrial Rate : 061 BPM P-R Int : 198 ms QRS Dur : 086 ms QT Int : 420 ms P-R-T Axes : 018 -11 001 degrees QTc Int : 422 ms Normal sinus rhythm Inferior infarct (cited on or before 03-FEB-2018) Possible Anterior infarct Abnormal ECG When compared with ECG of 12-DEC-2019 20:29, Vent. rate has decreased BY 33 BPM Confirmed by Juan Pina ([id number]) on 12/14/2019 5:54:39 AM Referred By: REFERRED SELF Confirmed By:Juan Pina
[2019-12-14 06:11] LABS: Partial Thromboplastin Ratio 4.5
[2019-12-14] MEDS: LEVOTHYROXINE SODIUM 150 MCG TABLET PO SCH (06:11)
[2019-12-14] MEDS: PANTOprazole 40 MG TAB PO SCH (06:11)
[2019-12-14 06:18] LABS: BUN Creatinine Ratio 24.2 (10-20); Calcium 9.9 mg/dl (8.5-10.1); Creatinine Clr Calc Pharmacy 39.3 ml/min; Est GFR (African American) 51.3; Est GFR (Non-African American) 44.3; Potassium 3.9 mmol/L (3.5-5.1)
[2019-12-14 06:20] LABS: Estimated Average Glucose 143 mg/dl; Hemoglobin A1C 6.6 % (4.5-5.6)
[2019-12-14 06:29] LABS: Partial Thromboplastin Time 125.5 Seconds (21.0-31.0)
--- NOTE | 2019-12-14 08:08 | Ultrasound Report ---
RIGHT LOWER EXTREMITY VENOUS DOPPLER HISTORY: assess extension of DVT COMPARISON STUDY: Venous Doppler 09/01/2017. FINDINGS: The right common femoral, superficial femoral, and popliteal veins demonstrate occlusive th rombus. The posterior tibial vein is also thrombosed. The anterior tibial and peroneal veins are not well visualized but may also demonstrate thrombus. IMPRESSION: Extensive DVT within the right lower extremity ACT 112: Negative or not required by law. Electronically signed by: Raj Frost M.D. 12/14/2019 8:06 AM
[2019-12-14] MEDS: bisacodyL 5 MG TABEC PO SCH (08:57)
[2019-12-14] MEDS: ASPIRIN 81 MG ECTAB PO SCH (08:58)
[2019-12-14] MEDS: MICONAZOLE NITRATE POWDER 43 GM TOP SCH ×2 (08:58→20:08)
[2019-12-14] MEDS: CEROVITE ADV FORMULA TAB PO SCH (08:59)
[2019-12-14] MEDS: BACLOFEN 10 MG TAB PO SCH ×2 (08:59→20:08)
[2019-12-14] MEDS: MAGNESIUM OXIDE 400 MG TAB PO SCH (08:59)
[2019-12-14] MEDS ORDERED: FUROSEMIDE 20 MG TAB PO SCH (09:00)
[2019-12-14] MEDS: INSULIN ASPART 100 UNITS/ML 3 ML PEN SC SCH ×4 (09:00→21:05)
[2019-12-14] MEDS: DOCUSATE SODIUM/SENNA 50/8.6MG TAB PO SCH ×2 (09:00→20:09)
[2019-12-14] MEDS: INSULIN GLARGINE SOLOSTAR 100 UNITS/ML 3 ML PEN SC SCH ×2 (09:01→21:05)
[2019-12-14] MEDS: SODIUM CHLORIDE 0.65% NA SOLN 45 ML (OCEAN) NAE SCH ×4 (09:01→20:08)
[2019-12-14 14:05] LABS: Partial Thromboplastin Ratio 2.1
[2019-12-14 14:06] LABS: Partial Thromboplastin Time 57.8 Seconds (21.0-31.0)
[2019-12-14] MEDS: LORATADINE 10 MG TAB PO SCH (20:08)
[2019-12-14] MEDS: FAMOTIDINE 20 MG TAB PO SCH (20:08)
[2019-12-14] MEDS: HEPARIN SODIUM/DEXTROSE 25,000 UNITS/500 ML BAG IV SCH (21:03)
--- NOTE | 2019-12-14 23:29 | Hospitalist Progress Note ---
Date of Service December 14, 2019 Assessment & Plan (1) Chronic pulmonary embolism: Continue IV heparin drip. will discharge on DOAC. I do not suspect this is causing her symptoms and likely chronic from immobility. (2) Acute deep vein thrombosis of right iliac vein: No need for vascular consult. D/W vascular surgeon. Place on anticoagulation Suspect secondary to immobility. (3) Acute deep vein thrombosis (DVT) of right femoral vein: As above (4) Chills: Subjective chills with recent nasal congestion, will get COVID-19 swab (5) Abdominal pain: This appears to be her largest complaint and reason for ER visit last night. Do not suspect caused by DVT as above. ?abdominal bloating from gas. Patient does not wish to take further laxatives. Will start simethicone to see if helpful. (6) Constipation: As above (7) CKD (chronic kidney disease) stage 3, GFR 30-59 ml/min: At baseline (8) Aphasia: Longstanding. Notable to be a aphasia since her pneumonia in June per palliative care notes at that time. (9) Alzheimer's dementia: On no medication for this. Daughter reports she was missing medications at home, not able to take, now resides at [facility]. (10) Diabetes: HbA1c with a.m. labs Hold home medication. Consult pharmacy for glycemic control with basal bolus insulin. (11) Hypothyroid: TSH WNL in June. Suspect previously elevated due to noncompliance. Continue levothyroxine 150 mcg p.o. daily. (12) Hypertension: Continue Lasix 20 mg every other day. (13) Coronary artery disease: Continue aspirin. Suspect muscle metoprolol due to bradycardia. Unclear why she is not on a statin. Recommend following up outpatient. (14) GERD (gastroesophageal reflux disease): Continue famotidine 20 mg p.o. at bedtime (15) Oropharyngeal dysphagia: Patient reports ability to manage regular food. Aspiration precautions Admission and Anticipated Discharge Date Admission Date: December 13, 2019 Subjective Patient is nonverbal but is able to write and nod her head. She has no new complaints. Review of Systems Review of Systems: All systems reviewed & are unremarkable except as noted in HPI & below Physical Exam Physical Exam: Constitutional: well developed; + not well nourished and no acute distress Eyes: PERRL, conjunctivae normal, anicteric sclerae ENMT: external ear and nose normal, oropharynx normal Neck: trachea midline, no thyromegaly Respiratory: normal respiratory effort, lungs clear to auscultation Cardiovascular: Rate/Rhythm: regular rate and regular rhythm Heart Sounds: no murmur Extremities: + pedal edema (trace equal b/l); + abnormal capillary refill (Increased in right foot 5-6 s, cooler to touch) Gastrointestinal (Abdomen): normal bowel sounds, soft, nontender, no hepatosplenomegaly Musculoskeletal: Pain in bilateral shoulders on any movement Skin: no rashes, warm and dry Neurologic: moves all extremities, + focal motor deficit (Wheelchair-bound, no lateralizing weakness) and awake; not confused Motor/Sensory: no tremor Psychiatric: A+Ox3, euthymic affect Genitourinary: no CVA tenderness Results & Data Results & Data ([facility]) Vital Signs (Past 12 Hours) Vital Signs Temp Pulse Resp BP Pulse Ox 12/14/19 19:57 36.9 C 88 16 122/63 98 12/14/19 15:04 36.6 C 62 14 113/69 95 12/14/19 11:59 36.6 C 62 18 121/70 95 PG Care Time/CCT Total # of Minutes Spent Total Time Spent with Patient: Total time spent is greater than 50% in coordination of care (as documented) at patient's floor/unit and/or counseling patient: Coding Level of Care Code 26404 Subseq Obs Care Lvl 3 Diagnoses Chronic pulmonary embolism I27.82 Acute deep vein thrombosis of right iliac vein I82.421 Acute deep vein thrombosis (DVT) of right femoral vein I82.411 Chills R68.83 Abdominal pain R10.9 Constipation K59.00 CKD (chronic kidney disease) stage 3, GFR 30-59 ml/min N18.3 Aphasia R47.01 Alzheimer's dementia G30.9; F02.80 Diabetes E11.9 Hypothyroid E03.9 Hypertension I10 Coronary artery disease I25.10 GERD (gastroesophageal reflux disease) K21.9 Oropharyngeal dysphagia R13.12
[2019-12-15] MEDS: SIMETHICONE 80 MG CHEW PO SCH ×3 (03:32→17:07)
[2019-12-15] MEDS: LEVOTHYROXINE SODIUM 150 MCG TABLET PO SCH (06:40)
[2019-12-15] MEDS: PANTOprazole 40 MG TAB PO SCH (06:40)
[2019-12-15 07:32] LABS: Partial Thromboplastin Ratio 2.7
[2019-12-15] MEDS: INSULIN ASPART 100 UNITS/ML 3 ML PEN SC SCH ×3 (07:43→17:06)
[2019-12-15] MEDS: INSULIN GLARGINE SOLOSTAR 100 UNITS/ML 3 ML PEN SC SCH (08:11)
[2019-12-15] MEDS: HEPARIN SODIUM/DEXTROSE 25,000 UNITS/500 ML BAG IV SCH (08:11)
[2019-12-15] MEDS: DOCUSATE SODIUM/SENNA 50/8.6MG TAB PO SCH (08:13)
[2019-12-15] MEDS: MICONAZOLE NITRATE POWDER 43 GM TOP SCH (08:14)
[2019-12-15] MEDS: BACLOFEN 10 MG TAB PO SCH (08:14)
[2019-12-15] MEDS: bisacodyL 5 MG TABEC PO SCH (08:15)
[2019-12-15] MEDS: ASPIRIN 81 MG ECTAB PO SCH (09:05)
[2019-12-15] MEDS: MAGNESIUM OXIDE 400 MG TAB PO SCH (09:06)
[2019-12-15] MEDS: CEROVITE ADV FORMULA TAB PO SCH (09:06)
[2019-12-15] MEDS: SODIUM CHLORIDE 0.65% NA SOLN 45 ML (OCEAN) NAE SCH ×3 (09:06→17:07)
[2019-12-15 14:36] LABS: Partial Thromboplastin Ratio 1.6
[2019-12-15] MEDS ORDERED: CEFDINIR 300 MG CAP PO ONE (17:00)
[2019-12-15] MEDS ORDERED: APIXABAN 5 MG TABLET PO SCH (18:00)
== END 2019-12-15 16:20 ==
LOC: ED 09:57 → 2S 09:57 → SUATTDRO 11:35 → 2S 12:19

== ENCOUNTER 2020-08-03 22:38 | Inpatient (IN) ==
[2020-08-03] MEDS ORDERED: fentaNYL citrate 100 MCG/2 ML VIAL IV STA ×2 (22:46→23:36)
[2020-08-03] MEDS ORDERED: SODIUM CHLORIDE 0.9% 250 ML IV PRN (22:47)
--- NOTE | 2020-08-03 22:52 | Emergency Department Note ---
Impression & Plan Hematoma of left lower extremity, Intractable pain ED Provider Note Name: BERTHA OCASIO Age: 79 Sex: F Arrives Via: Ambulance Informant: Patient (aphasic though answers with writing and head nod), daughter via phone, ems ED Provider: Trent Pennington MD Chief Complaint: Left pain Impression: Hematoma of left lower extremity Intractable Pain Medical Decision Makin yr old female with extensive PMH including CVA with aphasia and PEs/DVTs recently restarted on coumadin and lovenox. She arrives with large left calf swelling/bruising and some serious leaking as well as large cord/swelling extending medially to groin. Complaining of abdominal pain and nausea. IV obtained, given IV fentanyl and sent emergently to CT to rule out intraabdominal bleeding. CT consistent with previous cts and constipation findings, without bleeding noted. US obtained confirms that there is large amount of fluid consistent with hematoma left inner leg, questionable distal left clot. She was given Protamine for lovenox reversal and vit K as INR is elevated though not severely at this time. Pain is controlled with narcotics IV. She does not want surgery for this and review of her polst is consistent with that. Patient is DNR with IV abx/fluids allowed limited. She is aware she may loose the leg if this continues, especially given poor pulse left leg (though right is poor as well). Cap refill decreased but still there. Reviewed all of this with umesh agarwal who is aware of findings and my concern she may loose leg. Prior Medical Record and Triage/Nursing Notes reviewed by Me Differentials:Hemorrhage in abdomen, bleeding in to leg, infection, abscess, ischemia, dvt amongst other pathologies. Vital Signs: reviewed and remarkable for tachycardia Interventions: Saline lock, protamine IV, vit K iv, dilaudid iv, fentanyl iv, zofran iv Labs:Reviewed and remarkable for no significant abnormalities Imaging:[facility] Radiologist interpretation reviewed by me: CT a/p w iv contrast: "CT ABDOMEN & PELVIS With Contrast: Marked gaseous distention of the colon diverticular the anterior aspects in the transverse colon and upper sigmoid colon. No evidence of small bowel obstruction. No evidence of free peritoneal air or fluid. Gallstones. No abnormal fluid or regional inflammatory reaction. Radiologist: Darius Michelle MD" "US VENOUS LEFT LOWER EXTREMITY: Large complex fluid collection in the left inguinal region and upper medial left thigh. No flow is detected within the collection. This is favored to represent a hematoma.` Compression of vessels in the left eye is possible due to the large fluid collection. Some flow is detected in the left common femoral, superficial femoral and popliteal veins by either Doppler or color flow. Some flow is detected within the left posterior tibial vein, though it is unclear that there is full compressible. It is difficult to obtain flow in the left peroneal vein in the mid to distal calf. There is no clear evidence of DVT above the knee; however, this is a difficult and very limited exam due to the large fluid collection. Radiologist: Darius Michelle MD" EKG:Per My Interpretation: Indication Diffuse abdominal pain:Sinus tach 122 bpm, qtc [address] depression and mild V1 elevation. No Ectopy. Compared to EKG 12/12/20 ST findings are new. Cardiac/Tele Monitoring: Cardiac Monitoring: An Order was placed for continuous cardiac monitoring. The monitor shows a rate of 120 with a sinus tach rhythm. Consults:Dr Patience ANDRE Hospitalist Plan: Disposition:Hospitalization. Condition: Poor History of Present Illness:79 yr old female arrives for evaluation of abdominal pain. Patient with recent diagnosis of left leg dvt and started on Lovenox 80mg BID. Tonight left calf pain and swelling. Rapidly increasing swelling. Pain radiating to groin. EMS notes abdomen increasing swelling since they came to see her. Patient with increasing pain and discomfort in abdomen and leg since getting here. Patient report notes DNR with limited interventions (Fluids and ABx acceptable if to prolong life). Pt with Morphine 4mg administered prior to arrival with minimal relief. Worse with movement. Better with staying still. ROS: See above HPI for pertinent positives & negatives. A total of 10 systems reviewed and were otherwise negative. Past Medical History:See Below Past Surgical History:See Below Family History:See Below Social History:See Below Home Medications:See Below Allergies:NKDA Vitals:Blood Pressure: 130/73, Pulse 134, RR 2, T 37.0C, O2 95% on RA Physical Exam: GENERAL: Patient is uncomfortable appearing and in moderate distress. EYES: No scleral icterus, unremarkable pupils. ENT: Mucous membranes moist, no nasal congestion. NECK: No masses appreciated, nomeningismus, trachea is midline. RESPIRATORY: No dyspnea. Clear to auscultation and equal bilaterally. No wheeze, no rhonchi. CARDIOVASCULAR: Regular rate and rhythm.No murmurs, rubs, gallops appreciated. GASTROINTESTINAL: Distended, modest pain diffuse TTP, ventral hernia with sitting up, no bruising. Distant bowel sounds. BACK: No midline tenderness, no CVA tenderness EXTREMITIES: Large hematoma left calf with overlying abrasion that is oozing. Palpable large hematoma/cord extending all the way to groin. Minimal pulses left foot though also minimal right foot. NEUROLOGIC: Aphasic, Alert, looking around room, no clear acute motor or sensory deficits, no focal weakness, cranial nerves grossly intact. SKIN: No rash, no jaundice, no diaphoresis. GCS: 14 ED Course: Times/Reassessments: many throughout night. Some worsening swelling though slowing and patient pain controlled with IV pain meds. Cap refill improved with leg up on bed. Critical Care: I have personally spent 35 minutes of critical care time in the direct management of this patient. Acute large hematoma with decreased blood flow to entire left leg with need for reversal of blood thinner. This was a life/limb threatening event. This 35 minutes is in excess of all separately billable procedures. Trent Pennington MD Past Med/Surg History Medical History (Updated 08/04/20 @ 06:38 by Trent Pennington MD) Alzheimer's dementia Chronic venous stasis dermatitis of both lower extremities CKD (chronic kidney disease) stage 3, GFR 30-59 ml/min Dementia Diabetes H/O kidney disease Hypertension Hypothyroid Morbid obesity Surgical History History of hip surgery b/l KVNG History of hysterectomy S/P carpal tunnel release S/P hernia repair Family History Other Family history non-contributory Social History Smoking Status: Never smoker Hx Alcohol Use: No Hx Substance Use: No Preferred Language: Belarusian Communication Ability: Impaired Visual Impairment: Limited Hearing Ability: Normal Corporate Investigator Required: No Beliefs That Will Affect Care: None marital status: Current Living Situation: Assisted Current Living Situation Comment: [facility] current occupational status: retired Other Information That Helps Us Care for You: No Feels Safe at Home: No Is there a partner from a previous relationship who is making you feel unsafe now?: No Any Concerns about Your Family Situation: No Would You Like to Speak to Someone About Your Situation: No Safety Concerns: Feels Safe At This Time Assistive Devices: Glasses, Oxygen - at Night and Wheelchair Allergies Allergies Allergy/AdvReac Type Severity Reaction Status Date / Time No Known Allergies Allergy Verified 08/03/20 23:35 Home Meds Home Medications Medication Instructions Recorded Confirmed aspirin 81 mg PO QAM 02/03/18 08/03/20 glipizide 10 mg PO BID 02/03/18 08/03/20 magnesium oxide 400 mg PO QAM 02/03/18 08/03/20 omeprazole 20 mg PO DAILYBB 02/03/18 08/03/20 acetaminophen [Tylenol] 650 mg PO Q8H PRN MDD 3 GMS 06/20/19 08/03/20 APAP/24 HOURS baclofen 5 mg PO BID 06/20/19 08/03/20 famotidine 20 mg PO HS 06/20/19 08/03/20 loratadine [Claritin] 10 mg PO HS 06/20/19 08/03/20 sennosides-docusate sodium 1 tab PO BID 06/20/19 08/03/20 [Senna-S] sodium chloride [Saline Nasal Mist] 2 spray INTRANASAL QID 06/20/19 08/03/20 Desenex 1 applic TOPICAL BID 12/12/19 08/03/20 bisacodyl 5 mg PO QAM 12/12/19 08/03/20 furosemide 20 mg PO Q OTHER DAY 12/12/19 08/03/20 Januvia 25 mg PO QAM 12/13/19 08/03/20 Saccharomyces boulardii 250 mg PO BID 03/13/20 08/03/20 cholecalciferol (vitamin D3) 125 mcg PO QAM 03/13/20 08/03/20 [Vitamin D3] levothyroxine 125 mcg PO DAILYBB 03/13/20 08/03/20 enoxaparin [Lovenox] 80 mg SUBCUT Q12H 08/03/20 08/03/20 multivitamin [Daily-Pan] 1 tab PO QAM 08/03/20 08/03/20 warfarin 5 mg PO HS 08/03/20 08/03/20 zinc oxide 1 applic TOPICAL TID 08/03/20 08/03/20 Results & Data (ED) Vital Signs Vital Signs - 24 hr 08/03/20 22:46 08/03/20 22:53 08/03/20 23:29 Temperature 37.0 C Temperature Source Oral Pulse Rate 134 H 134 H 85 Pulse Rate from SpO2 Sensor 133 H Respiratory Rate 20 20 18 Respiratory Effort / Characteristics Non-Labored Spontaneous Respiratory Depth Normal Respiratory Pattern Regular Blood Pressure 130/73 130/73 115/77 Blood Pressure Mean 92 92 89 Blood Pressure Position Sitting Pulse Oximetry 95 95 Oxygen Delivery Method Room Air Sepsis Recent Fever Within 48 Hours No Sepsis New/Unexplained Change in Mental Status No Sepsis Action Taken by Nursing No Action Required 08/03/20 23:30 Temperature Temperature Source Pulse Rate 97 H Pulse Rate from SpO2 Sensor 120 H Respiratory Rate 15 Respiratory Effort / Characteristics Respiratory Depth Respiratory Pattern Blood Pressure 123/93 Blood Pressure Mean 103 Blood Pressure Position Pulse Oximetry 92 Oxygen Delivery Method Sepsis Recent Fever Within 48 Hours Sepsis New/Unexplained Change in Mental Status Sepsis Action Taken by Nursing Laboratory Data Result diagrams: 08/03/20 22:50 08/03/20 22:50 Lab Results 08/03/20 08/03/20 08/03/20 Range/Units 22:50 22:50 22:50 WBC 13.13 H (4.8-10.8) K/uL RBC 4.02 L (4.2-5.4) M/uL Hgb 12.4 (12.0-16.0) g/dL Hct 36.2 L (37-47) % MCV 90.0 (80-100) fL MCH 30.8 (25-34) pg MCHC 34.3 (32-36) g/dL RDW Std Deviation 43.8 (36.4-46.3) fL RDW Coeff of Valente 13.3 (11.5-14.5) % Plt Count 296 (130-400) K/uL MPV 10.4 (7.4-10.4) fL Immature Gran % (Auto) 0.4 % Neut % (Auto) 52.8 % Lymph % (Auto) 35.0 % [place]haw % (Auto) 7.8 % Eos % (Auto) 3.7 % Baso % (Auto) 0.3 % Neut # (Auto) 6.95 H (1.4-6.5) K/uL Lymph # (Auto) 4.59 H (1.2-3.4) K/uL [place] # (Auto) 1.02 H (0.11-0.59) K/uL Eos # (Auto) 0.48 (0-0.5) K/uL Baso # (Auto) 0.04 (0-0.2) K/uL Immature Gran # (Auto) 0.05 H (0.00-0.02) K/uL PT 15.0 H (9.0-12.0) Seconds INR 1.5 H (0.9-1.1) APTT 48.6 H* (21.0-31.0) Seconds PTT Ratio 1.8 Sodium 142 (136-145) mmol/L Potassium 3.5 (3.5-5.1) mmol/L Chloride 110 H (98-107) mmol/L Carbon Dioxide 22 (21-32) mmol/L Anion Gap 10.0 (3-11) BUN 16 (7-18) mg/dl Creatinine 0.95 (0.6-1.2) mg/dl Est Cr Clr Drug Dosing Not Reportable Est GFR ( Amer) 66.0 ml/min Est GFR (Non-Af Amer) 57.0 ml/min BUN/Creatinine Ratio 16.3 (10-20) Glucose 226 H (70-99) mg/dl Calcium 9.7 (8.5-10.1) mg/dl Magnesium 1.6 L (1.8-2.4) mg/dl Total Bilirubin 0.4 (0.2-1) mg/dl Direct Bilirubin < 0.1 (0-0.2) mg/dl AST 11 L (15-37) U/L ALT 12 (12-78) U/L Alkaline Phosphatase 70 (45-117) U/L Total Creatine Kinase 25 L (26-192) U/L Troponin I < 0.015 (0-0.045) ng/ml Total Protein 6.8 (6.4-8.2) gm/dl Albumin 3.1 L (3.4-5.0) gm/dl Lipase 96 (73-393) U/L COVID-19 Eval Order SARS-CoV-2 (PCR) (Negative) Blood Type Antibody Screen Crossmatch 08/03/20 08/03/20 08/03/20 Range/Units 22:50 23:50 23:50 WBC (4.8-10.8) K/uL RBC (4.2-5.4) M/uL Hgb (12.0-16.0) g/dL Hct (37-47) % MCV (80-100) fL MCH (25-34) pg MCHC (32-36) g/dL RDW Std Deviation (36.4-46.3) fL RDW Coeff of Valente (11.5-14.5) % Plt Count (130-400) K/uL MPV (7.4-10.4) fL Immature Gran % (Auto) % Neut % (Auto) % Lymph % (Auto) % Kershaw % (Auto) % Eos % (Auto) % Baso % (Auto) % Neut # (Auto) (1.4-6.5) K/uL Lymph # (Auto) (1.2-3.4) K/uL [place] # (Auto) (0.11-0.59) K/uL Eos # (Auto) (0-0.5) K/uL Baso # (Auto) (0-0.2) K/uL Immature Gran # (Auto) (0.00-0.02) K/uL PT (9.0-12.0) Seconds INR (0.9-1.1) APTT (21.0-31.0) Seconds PTT Ratio Sodium (136-145) mmol/L Potassium (3.5-5.1) mmol/L Chloride (98-107) mmol/L Carbon Dioxide (21-32) mmol/L Anion Gap (3-11) BUN (7-18) mg/dl Creatinine (0.6-1.2) mg/dl Est Cr Clr Drug Dosing Est GFR ( Amer) ml/min Est GFR (Non-Af Amer) ml/min BUN/Creatinine Ratio (10-20) Glucose (70-99) mg/dl Calcium (8.5-10.1) mg/dl Magnesium (1.8-2.4) mg/dl Total Bilirubin (0.2-1) mg/dl Direct Bilirubin (0-0.2) mg/dl AST (15-37) U/L ALT (12-78) U/L Alkaline Phosphatase (45-117) U/L Total Creatine Kinase (26-192) U/L Troponin I (0-0.045) ng/ml Total Protein (6.4-8.2) gm/dl Albumin (3.4-5.0) gm/dl Lipase (73-393) U/L COVID-19 Eval [address] Covid[address] [facility] SARS-CoV-2 (PCR) NEGATIVE (Negative) Blood Type A Positive Antibody Screen NEGATIVE Crossmatch See Detail Administered Medications Potassium Chloride/Sodium Chloride (Normal Saline W/20 Meq Kcl) 20 meq in 1,000 mls @ 100 mls/hr IV .Q10H [facility] Stop: 09/03/20 03:59 Last Admin: 08/04/20 04:19 Dose: 100 mls/hr Documented by: [id number] Insulin Aspart (Insulin Aspart 100 Units/Ml 3 Ml Pen) 0 units SC [facility]; Protocol Stop: 09/03/20 03:59 Last Admin: 08/04/20 04:40 Dose: 5 units Documented by: [id number] Cosigned by: [id number] Levothyroxine Sodium (Levothyroxine Sodium 125 Mcg Tablet) [facility] Stop: 09/03/20 06:29 Last Admin: 08/04/20 05:53 Dose: Not Given Documented by: [id number] Pantoprazole Sodium (Pantoprazole 40 Mg Tab) [facility] Stop: 09/03/20 06:29 Last Admin: 08/04/20 05:53 Dose: Not Given Documented by: [id number] Discontinued Medications Fentanyl Citrate (Fentanyl Citrate 100 Mcg/2 Ml Vial) 50 mcg IV NOW STA Stop: 08/03/20 22:47 Last Admin: 08/03/20 23:09 Dose: 50 mcg Documented by: [id number] Fentanyl Citrate (Fentanyl Citrate 100 Mcg/2 Ml Vial) 50 mcg IV NOW STA Stop: 08/03/20 23:37 Last Admin: 08/03/20 23:44 Dose: 50 mcg Documented by: [id number] Fentanyl Citrate (Fentanyl Citrate 100 Mcg/2 Ml Vial) 50 mcg IV NOW STA Stop: 08/04/20 00:39 Last Admin: 08/04/20 00:41 Dose: 50 mcg Documented by: [id number] Hydromorphone HCl (Hydromorphone Inj 0.5 Mg/0.5 Ml Syr) 0.5 mg IV NOW STA Stop: 08/04/20 00:27 Last Admin: 08/04/20 01:36 Dose: 0.5 mg Documented by: [id number] Hydromorphone HCl (Hydromorphone Inj 0.5 Mg/0.5 Ml Syr) 0.5 mg IV NOW STA Stop: 08/04/20 02:45 Last Admin: 08/04/20 02:49 Dose: 0.5 mg Documented by: [id number] Phytonadione 5 mg/ Sodium (Chloride) 50.5 mls @ 101 mls/hr IV ONE ONE Stop: 08/04/20 01:01 Last Infusion: 08/04/20 01:40 Dose: 0 mls/hr Documented by: [id number] Admin: 08/04/20 01:09 Dose: 101 mls/hr Documented by: [id number] Protamine Sulfate 50 mg/ (Dextrose) 55 mls @ 300 mls/hr IV ONE ONE Stop: 08/04/20 00:41 Last Infusion: 08/04/20 01:26 Dose: 0 mls/hr Documented by: [id number] Admin: 08/04/20 00:58 Dose: 300 mls/hr Documented by: [id number] Insulin Human Regular 7 units/ (Syringe) 7 mls @ 30 mls/min IV NOW ONE Stop: 08/04/20 05:01 Last Admin: 08/04/20 05:10 Dose: 30 mls/min Documented by: [id number] Cosigned by: [id number] Ioversol (Optiray 320 100ml) 84 ml IV ONCE ONE Stop: 08/03/20 23:17 Last Admin: 08/03/20 23:16 Dose: 84 ml Documented by: [id number] Ondansetron HCl (Ondansetron Inj 2 Mg/Ml 2 Ml Vial) 4 mg IV NOW STA Stop: 08/03/20 23:37 Last Admin: 08/03/20 23:44 Dose: 4 mg Documented by: [id number] Admin: 08/03/20 23:44 Dose: 4 mg Documented by: [id number] Ondansetron HCl (Ondansetron Inj 2 Mg/Ml 2 Ml Vial) 4 mg IV NOW STA Stop: 08/04/20 00:32 Last Admin: 08/04/20 00:41 Dose: 4 mg Documented by: [id number] Discharge Plan Visit Data Chief Complaint: Leg Injury/Pain Stated Complaint: HEMATOMA LEG ED Provider: Trent Pennington Discharge Problem: Hematoma of left lower extremity, Intractable pain Patient Disposition: Admitted As Inpatient Discharge Instructions Interventions: ED Discharge Assessment Last Done: 08/04/20 02:54 Discharge Problem: Hematoma of left lower extremity Qualifiers: Encounter type: initial encounter Qualified Code(s): S80.12XA - Contusion of left lower leg, initial encounter
[2020-08-03 23:07] LABS: Basophils # (auto) 0.04 K/uL (0-0.2); Basophils % (auto) 0.3 %; Eosinophils # (auto) 0.48 K/uL (0-0.5); Eosinophils % (auto) 3.7 %; Hematocrit (blood only) 36.2 % (37-47); Hemoglobin 12.4 g/dL (12.0-16.0); Immature Granulocytes # (auto) 0.05 K/uL (0.00-0.02); Immature Granulocytes % (auto) 0.4 %; Lymphocytes # (auto) 4.59 K/uL (1.2-3.4); Mean Corpuscular Hemoglobin 30.8 pg (25-34); Mean Corpuscular Hgb Conc 34.3 g/dL (32-36); Mean Platelet Volume 10.4 fL (7.4-10.4); Monocytes # (auto) 1.02 K/uL (0.11-0.59); Monocytes % (auto) 7.8 %; Neutrophils # (auto) 6.95 K/uL (1.4-6.5); Neutrophils % (auto) 52.8 %; Platelet Count 296 K/uL (130-400); RDW Coefficient of Variation 13.3 % (11.5-14.5); RDW Standard Deviation 43.8 fL (36.4-46.3); Red Blood Count 4.02 M/uL (4.2-5.4); White Blood Count 13.13 K/uL (4.8-10.8)
[2020-08-03] MEDS ORDERED: OPTIRAY 320 100ml IV ONE (23:16)
[2020-08-03 23:24] LABS: Alanine Aminotransferase 12 U/L (12-78); Albumin Level 3.1 gm/dl (3.4-5.0); Aspartate Aminotransferase 11 U/L (15-37); BUN Creatinine Ratio 16.3 (10-20); Bilirubin Direct < 0.1 mg/dl (0-0.2); Blood Urea Nitrogen 16 mg/dl (7-18); Calcium 9.7 mg/dl (8.5-10.1); Carbon Dioxide 22 mmol/L (21-32); Chloride 110 mmol/L (98-107); Glucose 226 mg/dl (70-99); Lipase 96 U/L (73-393); Magnesium 1.6 mg/dl (1.8-2.4); Potassium 3.5 mmol/L (3.5-5.1); Sodium 142 mmol/L (136-145)
[2020-08-03 23:27] LABS: Alkaline Phosphatase 70 U/L (45-117); Bilirubin,Total 0.4 mg/dl (0.2-1); Creatine Kinase 25 U/L (26-192); INR 1.5 (0.9-1.1); Partial Thromboplastin Ratio 1.8; Total Protein 6.8 gm/dl (6.4-8.2); Troponin I < 0.015 ng/ml (0-0.045)
[2020-08-03 23:31] LABS: Partial Thromboplastin Time 48.6 Seconds (21.0-31.0)
[2020-08-03] MEDS: ONDANSETRON INJ 2 MG/ML 2 ML VIAL IV STA (23:44)
[2020-08-04] MEDS ORDERED: HYDROmorphone INJ 0.5 MG/0.5 ML SYR IV STA ×3 (00:26→12:23)
[2020-08-04] MEDS ORDERED: ONDANSETRON INJ 2 MG/ML 2 ML VIAL IV STA (00:31)
[2020-08-04] MEDS ORDERED: PROTAMINE SULFATE 50 MG in DEXTROSE 5% 50 ML IV ONE (00:32)
[2020-08-04] MEDS ORDERED: PHYTONADIONE 5 MG in SODIUM CHLORIDE 0.9% 50 ML IV ONE ×2 (00:32→08:45)
[2020-08-04] MEDS ORDERED: fentaNYL citrate 100 MCG/2 ML VIAL IV STA ×2 (00:38→22:00)
--- NOTE | 2020-08-04 01:19 | History & Physical Report ---
Date of Service August 04, 2020 Assessment & Plan (1) Hematoma of left lower extremity: Hematoma of left lower extremity while on therapeutic subcu Lovenox and warfarin- Reversed with vitamin K and protamine sulfate in the ED Follow clinical examination Venous Dopplers note hematoma, but study was difficult to complete to assess presence of DVT Anticoagulation will be held. If there is further concern about DVT progressing to PE, patient may require an IVC filter Present on Admission?: Yes (2) Chronic pulmonary embolism: Holding warfarin and subcu Lovenox as noted Present on Admission?: Yes (3) Aphasia: Inability to communicate due to previous strokes Present on Admission?: Yes (4) Coronary artery disease: CAD/hypertension- Hold aspirin for now Present on Admission?: Yes (5) Hypertension: See above Present on Admission?: Yes (6) GERD (gastroesophageal reflux disease): Continue omeprazole /pantoprazole and famotidine at bedtime Present on Admission?: Yes (7) CKD (chronic kidney disease) stage 3, GFR 30-59 ml/min: Stable Present on Admission?: Yes (8) Diabetes: Hold glipizide and Januvia Placed on Accu-Cheks before meals and at bedtime with NovoLog coverage per scale Present on Admission?: Yes History of Present Illness Chief Complaint: The patient presents to the emergency department from [facility] due to left calf pain and rapidly increasing swelling radiating toward the groin Primary Care Provider: Fanny Schofield The patient is a 79-year-old female resident of [facility] with a PMH including oropharyngeal dysphagia, constipation, GERD, CAD, venous insufficiency, aphasia, chronic pulmonary embolism, right iliac vein DVT, right femoral vein DVT, sepsis, history of renal failure, dementia, hypernatremia, ZULMA on CKD, CKD, chronic venous stasis dermatitis, UTI, venous stasis ulcer, hypertension, hypothyroidism, diabetes mellitus and pneumonia. The patient reportedly had been started on Lovenox and warfarin for a recent diagnosis of DVT, and was noted to have rapidly increasing swelling and left calf toward groin pain. Allergies Allergy/AdvReac Type Severity Reaction Status Date / Time No Known Allergies Allergy Verified 08/03/20 23:35 Home Medications Medication Instructions Recorded Confirmed Type aspirin 81 mg PO QAM 02/03/18 08/03/20 History glipizide 10 mg PO BID 02/03/18 08/03/20 History magnesium oxide 400 mg PO QAM 02/03/18 08/03/20 History omeprazole 20 mg PO DAILYBB 02/03/18 08/03/20 History acetaminophen [Tylenol] 650 mg PO Q8H PRN MDD 3 GMS 06/20/19 08/03/20 History APAP/24 HOURS baclofen 5 mg PO BID 06/20/19 08/03/20 History famotidine 20 mg PO HS 06/20/19 08/03/20 History loratadine [Claritin] 10 mg PO HS 06/20/19 08/03/20 History sennosides-docusate sodium 1 tab PO BID 06/20/19 08/03/20 History [Senna-S] sodium chloride [Saline Nasal Mist] 2 spray INTRANASAL QID 06/20/19 08/03/20 History Desenex 1 applic TOPICAL BID 12/12/19 08/03/20 History bisacodyl 5 mg PO QAM 12/12/19 08/03/20 History furosemide 20 mg PO Q OTHER DAY 12/12/19 08/03/20 History Januvia 25 mg PO QAM 12/13/19 08/03/20 History Saccharomyces boulardii 250 mg PO BID 03/13/20 08/03/20 History cholecalciferol (vitamin D3) 125 mcg PO QAM 03/13/20 08/03/20 History [Vitamin D3] levothyroxine 125 mcg PO DAILYBB 03/13/20 08/03/20 History enoxaparin [Lovenox] 80 mg SUBCUT Q12H 08/03/20 08/03/20 History multivitamin [Daily-Pan] 1 tab PO QAM 08/03/20 08/03/20 History warfarin 5 mg PO HS 08/03/20 08/03/20 History zinc oxide 1 applic TOPICAL TID 08/03/20 08/03/20 History Past Med/Surg History Medical History (Updated 08/04/20 @ 04:42 by Justice Morin MD) Alzheimer's dementia Chronic venous stasis dermatitis of both lower extremities CKD (chronic kidney disease) stage 3, GFR 30-59 ml/min Dementia Diabetes H/O kidney disease Hypertension Hypothyroid Morbid obesity Surgical History History of hip surgery b/l KVNG History of hysterectomy S/P carpal tunnel release S/P hernia repair Family History Other Family history non-contributory Social History Smoking Status: Unknown if ever smoked Hx Alcohol Use: No Hx Substance Use: No Preferred Language: [place] Communication Ability: Impaired Visual Impairment: Limited Hearing Ability: Normal Flat[employer] Fin[employer] Required: No Beliefs That Will Affect Care: None marital status: Current Living Situation: [facility] Current Living Situation Comment: [employer] current occupational status: retired Feels Safe at Home: Yes Assistive Devices: Glasses, Oxygen - at Night and Wheelchair Review of Systems Review of Systems: Unobtainable due to cognitive status Physical Exam Physical Exam: The patient with limited ability to respond, well developed and well nourished, normocephalic and atraumatic, lying in bed and in no acute distress. HEENT--PERRL, EOMI, mucous membranes and oropharynx normal Neck--supple. No JVD. No bruits. Thyroid normal, trachea midline, no adenopathy. Heart--normal S1 and S2. No murmurs, rubs or gallops. Lungs--clear bilaterally, no respiratory distress, no accessory muscle use. Abdomen--normal bowel sounds and soft. Nontender. Nondistended. Extremities--right lower extremity normal except for chronic venous stasis dermatitis changes. Left lower extremity with large hematoma from medial aspect of the knee mcfp down anterior tibial surface. Hematoma extending from upper knee area to groin Dermatologic--see above Neurologic--cranial nerves II through XII grossly intact. Rheumatologic--limited exam Psychiatric--limited ability to respond Results & Data Results & Data ([place]) Vital Signs (Past 12 Hours) Vital Signs Temp Pulse Pulse Resp BP BP Pulse Ox 08/04/20 01:12 104 H 20 70/45 L 94 08/04/20 00:39 111 H 22 95/76 L 93 08/03/20 23:30 97 H 15 123/93 92 08/03/20 23:29 85 18 115/77 08/03/20 22:53 98.6 F 134 H 20 130/73 95 08/03/20 22:46 134 H 20 130/73 95 Laboratory Results Laboratory Results WBC 13.13 K/uL (4.8-10.8) H 08/03/20 22:50 RBC 4.02 M/uL (4.2-5.4) L 08/03/20 22:50 Hgb 12.4 g/dL (12.0-16.0) 08/03/20 22:50 Hct 36.2 % (37-47) L 08/03/20 22:50 MCV 90.0 fL (80-100) 08/03/20 22:50 MCH 30.8 pg (25-34) 08/03/20 22:50 MCHC 34.3 g/dL (32-36) 08/03/20 22:50 RDW Std Deviation 43.8 fL (36.4-46.3) 08/03/20 22:50 RDW Coeff of Valente 13.3 % (11.5-14.5) 08/03/20 22:50 Plt Count 296 K/uL (130-400) 08/03/20 22:50 MPV 10.4 fL (7.4-10.4) 08/03/20 22:50 Immature Gran % (Auto) 0.4 % 08/03/20 22:50 Neut % (Auto) 52.8 % 08/03/20 22:50 Lymph % (Auto) 35.0 % 08/03/20 22:50 [place] % (Auto) 7.8 % 08/03/20 22:50 Eos % (Auto) 3.7 % 08/03/20 22:50 Baso % (Auto) 0.3 % 08/03/20 22:50 Neut # (Auto) 6.95 K/uL (1.4-6.5) H 08/03/20 22:50 Lymph # (Auto) 4.59 K/uL (1.2-3.4) H 08/03/20 22:50 [place] # (Auto) 1.02 K/uL (0.11-0.59) H 08/03/20 22:50 Eos # (Auto) 0.48 K/uL (0-0.5) 08/03/20 22:50 Baso # (Auto) 0.04 K/uL (0-0.2) 08/03/20 22:50 Immature Gran # (Auto) 0.05 K/uL (0.00-0.02) H 08/03/20 22:50 PT 15.0 Seconds (9.0-12.0) H 08/03/20 22:50 INR 1.5 (0.9-1.1) H 08/03/20 22:50 APTT 48.6 Seconds (21.0-31.0) H* 08/03/20 22:50 PTT Ratio 1.8 08/03/20 22:50 Sodium 142 mmol/L (136-145) 08/03/20 22:50 Potassium 3.5 mmol/L (3.5-5.1) 08/03/20 22:50 Chloride 110 mmol/L (98-107) H 08/03/20 22:50 Carbon Dioxide 22 mmol/L (21-32) 08/03/20 22:50 Anion Gap 10.0 (3-11) 08/03/20 22:50 BUN 16 mg/dl (7-18) 08/03/20 22:50 Creatinine 0.95 mg/dl (0.6-1.2) 08/03/20 22:50 Est Cr Clr Drug Dosing Not Reportable 08/03/20 22:50 Est GFR ( Amer) 66.0 ml/min 08/03/20 22:50 Est GFR (Non-Af Amer) 57.0 ml/min 08/03/20 22:50 BUN/Creatinine Ratio 16.3 (10-20) 08/03/20 22:50 Glucose 226 mg/dl (70-99) H 08/03/20 22:50 POC Glucose 404 mg/dl (70-99) H* 08/04/20 04:23 Calcium 9.7 mg/dl (8.5-10.1) 08/03/20 22:50 Magnesium 1.6 mg/dl (1.8-2.4) L 08/03/20 22:50 Total Bilirubin 0.4 mg/dl (0.2-1) 08/03/20 22:50 Direct Bilirubin < 0.1 mg/dl (0-0.2) 08/03/20 22:50 AST 11 U/L (15-37) L 08/03/20 22:50 ALT 12 U/L (12-78) 08/03/20 22:50 Alkaline Phosphatase 70 U/L (45-117) 08/03/20 22:50 Total Creatine Kinase 25 U/L (26-192) L 08/03/20 22:50 Troponin I < 0.015 ng/ml (0-0.045) 08/03/20 22:50 Total Protein 6.8 gm/dl (6.4-8.2) 08/03/20 22:50 Albumin 3.1 gm/dl (3.4-5.0) L 08/03/20 22:50 Lipase 96 U/L (73-393) 08/03/20 22:50 COVID-19 Eval Order Covid19 at [facility] 08/03/20 23:50 SARS-CoV-2 (PCR) NEGATIVE (Negative) 08/03/20 23:50 Blood Type A Positive 08/03/20 22:50 Antibody Screen NEGATIVE 08/03/20 22:50 Crossmatch See Detail 08/03/20 22:50 Diagnostic Findings [facility] Patient: BERTHA OCASIO (Female) : 40 Status: ER Date: 08/04/20 00:42 Room #: History: large hematoma vs clot left leg Slices: 31 Priors: 09/01/17 Tech: Yue Mcpherson @ [phone] Exams: US VENOUS LEFT LOWER EXTREMITY Contrast: Accession Numbers: [id number] Preliminary Findings Only See Final Report For Complete Findings US VENOUS LEFT LOWER EXTREMITY: Large complex fluid collection in the left inguinal region and upper medial left thigh. No flow is detected within the collection. This is favored to represent a hematoma.` Compression of vessels in the left eye is possible due to the large fluid collection. Some flow is detected in the left common femoral, superficial femoral and popliteal veins by either Doppler or color flow. Some flow is detected within the left posterior tibial vein, though it is unclear that there is full compressible. It is difficult to obtain flow in the left peroneal vein in the mid to distal calf. There is no clear evidence of DVT above the knee; however, this is a difficult and very limited exam due to the large fluid collection. Radiologist: Darius Michelle MD Study ready at 00:44 and initial results transmitted at 01:05 *This report constitutes a preliminary interpretation only. Non-acute findings felt to be unrelated to the clinical presentation may not be discussed in this report. The study will be interpreted and a final report will be generated by the local Radiologist the following shift. To reach the hospital radiology department call [phone]. If a discrepancy is found between the preliminary and final interpretations of this study, please notify us via our Client Portal at [email or web address] under QA [email or web address].You can also fax this report with a description of the discrepancy, or include the final report, to our daytime fax number [phone].If faxing, please indicate the severity of discrepancy using one of the following categories: [ ] 1 - Agree/Informational [ ] 2 - Unlikely to Affect Management [ ] 3 - Possible Eventual Change of Management [ ] 4 - Probable Immediate Change of Management For all other patient related information, please fax us at [phone]. [id number] Code Status & VTE Plan Code Status DNR/DNI VTE Prophylaxis Plan VTE Prophylaxis will be ordered: Yes PG Care Time/CCT Total # of Minutes Spent Total Time Spent with Patient: Total time spent is greater than 50% in coordination of care (as documented) at patient's floor/unit and/or counseling patient: Coding Level of Care Code 46306 Initial Inpt Care Lvl 3 Diagnoses Hematoma of left lower extremity S80.12XA Chronic pulmonary embolism I27.82 Aphasia R47.01 Coronary artery disease I25.10 Hypertension I10 GERD (gastroesophageal reflux disease) K21.9 CKD (chronic kidney disease) stage 3, GFR 30-59 ml/min N18.3 Diabetes E11.9
[2020-08-04] MEDS ORDERED: POLYETHYLENE (MIRALAX) 17 GM PACK PO PRN (03:40)
[2020-08-04] MEDS ORDERED: ACETAMINOPHEN 325 MG TAB PO PRN (03:40)
[2020-08-04] MEDS ORDERED: CARBOHYDRATES FOR HYPOGLYCEMIA PO PRN (03:40)
[2020-08-04] MEDS ORDERED: GLUCOSE 10 TABS/TUBE PO PRN (03:40)
[2020-08-04] MEDS ORDERED: GLUCAGON FOR INJ 1 MG VIAL SQ PRN (03:40)
[2020-08-04] MEDS ORDERED: GLUCOSE 40% GEL 15 GM TUBE PO PRN (03:40)
[2020-08-04] MEDS ORDERED: DEXTROSE 50% 50 ML SYRINGE IV PRN (03:40)
[2020-08-04] MEDS ORDERED: NSS + 20MEQ KCL 20 MEQ/1,000 ML BAG IV SCH (04:00)
[2020-08-04] MEDS: INSULIN ASPART 100 UNITS/ML 3 ML PEN SC SCH ×5 (04:40→22:57)
[2020-08-04] MEDS ORDERED: PHARMACY GLYCEMIC MGMT CONSULT PRN (04:48)
[2020-08-04] MEDS ORDERED: INSULIN HUMAN REGULAR PER UNIT 7 UNITS in SYRINGE 6.93 ML IV ONE (05:00)
[2020-08-04] MEDS ORDERED: ONDANSETRON INJ 2 MG/ML 2 ML VIAL IV PRN ×2 (05:18→22:00)
[2020-08-04] MEDS ORDERED: PANTOprazole 40 MG TAB PO SCH (06:30)
[2020-08-04] MEDS ORDERED: LEVOTHYROXINE SODIUM 125 MCG TABLET PO SCH (06:30)
[2020-08-04] MEDS: MAGNESIUM SULFATE / D5W 1 GM/100 ML BAG IV SCH ×2 (06:55→09:51)
[2020-08-04] MEDS ORDERED: SODIUM CHLORIDE 0.9% 1000ML 500 ML IV ONE (07:29)
[2020-08-04] MEDS ORDERED: INSULIN GLARGINE SOLOSTAR 100 UNITS/ML 3 ML PEN SC ONE (07:30)
--- NOTE | 2020-08-04 07:38 | CT Scan Report ---
CT abd pelvis IV con only CLINICAL HISTORY: abdominal swelling, pain, recently started Lovenox COMPARISON STUDY: 05/16/2020 TECHNIQUE: The patient was scanned in a dynamic helical fashion during intravenous administration of 84 cc of Optiray 320 A dose lowering technique was utilized adhering to the principles of ALARA. CT DOSE: 1188.84 mGy.cm FINDINGS: Lower chest: There are subtle bilateral groundglass opacities with mild lower lobe bronchial wall thi ckening and dependent opacities, likely atelectatic. There is a hiatal hernia Liver: The contrast-enhanced liver is normal in size, contour, and attenuation. There is no intrahepa tic biliary ductal dilatation. The hepatic veins and portal veins are patent. Gallbladder: There are equivocal gallstones present. Spleen: Normal in size and attenuation. Pancreas: Unremarkable. Adrenal glands: There is stable mild left adrenal nodularity. Kidneys: There is right-sided nephrolithiasis. No solid renal masses are visualized. There is no evid ence of hydronephrosis. Bowel: There is gaseous distention of the colon. There are no transition zones to indicate bowel obst ruction. There is stool and fluid within the rectosigmoid. There are opaque densities within the rect um, likely representing pill fragments. There is no evidence of acute diverticulitis. There is border line rectosigmoid wall thickening. There are no findings to indicate acute appendicitis. Peritoneum: There is no intraperitoneal free air or abdominal ascites. Vasculature: The abdominal aorta is normal in course and caliber. Adenopathy: None. Pelvic viscera: Evaluation the pelvis is limited due to artifact from bilateral hip arthroplasties. T he patient appears be status post a prior hysterectomy. Skeletal structures: There are multilevel spondylytic changes within the spine. There is multilevel s james stenosis. No destructive lesions are visualized. The study is somewhat compromised from a technical standpoint due to motion artifact. IMPRESSION: 1. Motion degraded study 2. No evidence of bowel obstruction. No evidence of free air 3. Colonic distention 4. Right-sided nephrolithiasis. No evidence of hydronephrosis 5. Probable cholelithiasis ACT 112: Negative or not required by law. Electronically signed by: Bernardo Colby M.D. 08/04/2020 7:37 AM
[2020-08-04] MEDS ORDERED: VANCOMYCIN CONSULT ACTIVE PRN (07:43)
[2020-08-04] MEDS ORDERED: PIPERACILL/TAZOBAC CONSULT ACTIVE PRN (07:43)
[2020-08-04] MEDS ORDERED: SODIUM CHLORIDE 0.9% 1000ML 1,000 ML IV ONE (08:02)
[2020-08-04] MEDS ORDERED: PHARMACY GLYCEMIC MGMT CONSULT STA (08:03)
[2020-08-04 08:07] LABS: Hematocrit (blood only) 18.3 % (37-47); Hemoglobin 6.3 g/dL (12.0-16.0); Mean Corpuscular Hemoglobin 31.3 pg (25-34); Mean Corpuscular Hgb Conc 34.4 g/dL (32-36); Mean Platelet Volume 9.9 fL (7.4-10.4); Platelet Count 338 K/uL (130-400); RDW Coefficient of Variation 13.8 % (11.5-14.5); RDW Standard Deviation 46.4 fL (36.4-46.3); Red Blood Count 2.01 M/uL (4.2-5.4); White Blood Count 19.71 K/uL (4.8-10.8)
[2020-08-04] MEDS ORDERED: SODIUM CHLORIDE 0.9% 250 ML IV PRN (08:07)
--- NOTE | 2020-08-04 08:07 | Ultrasound Report ---
LEFT LOWER EXTREMITY VENOUS DOPPLER HISTORY: large hematoma vs clot left leg COMPARISON STUDY: None. FINDINGS: Large complex fluid collection measuring approximately 35 x 6 x 5 cm extending from the lef t groin to the mid calf. This likely represents a hematoma. Thrombus identified within the left poste rior tibial and peroneal veins. The proximal calf vessels were not well visualized due to compression from the large fluid collection. Color flow identified within the common femoral, superficial femora l, popliteal veins which are likely patent. IMPRESSION: 1. Large complex fluid collection extending from the left groin to the mid calf measuring 35 x 6 x 5 cm. This favors a subcutaneous hematoma. 2. There appears to be thrombus identified within the left posterior tibial and peroneal veins. ACT 112: Negative or not required by law. Electronically signed by: Raj Frost M.D. 08/04/2020 8:06 AM
[2020-08-04 08:15] LABS: INR 1.5 (0.9-1.1); Partial Thromboplastin Ratio 1.5; Partial Thromboplastin Time 38.2 Seconds (21.0-31.0); Prothrombin Time 15.1 Seconds (9.0-12.0)
[2020-08-04] MEDS ORDERED: INSULIN HUMAN REGULAR PER UNIT 5 UNITS in SYRINGE 4.95 ML IV ONE (08:15)
[2020-08-04 08:16] LABS: Basophils # (auto) 0.02 K/uL (0-0.2); Basophils % (auto) 0.1 %; Eosinophils # (auto) 0.01 K/uL (0-0.5); Eosinophils % (auto) 0.1 %; Immature Granulocytes % (auto) 0.5 %; Lymphocytes # (auto) 2.35 K/uL (1.2-3.4); Lymphocytes % (auto) 11.9 %; Monocytes # (auto) 0.77 K/uL (0.11-0.59); Monocytes % (auto) 3.9 %; Neutrophils # (auto) 16.46 K/uL (1.4-6.5); Neutrophils % (auto) 83.5 %
--- NOTE | 2020-08-04 08:16 | XRay Report ---
XR chest 1V portable HISTORY: sepsis COMPARISON: Chest 12/12/2019. FINDINGS: No pneumothorax. The heart remains mildly enlarged. Left basilar linear densities favor sca rring or atelectasis. No new focal lung consolidations to suggest pneumonia. No pleural effusions. IMPRESSION: No significant change compared to the prior study. No acute process. ACT 112: Negative or not required by law. Electronically signed by: Raj Frost M.D. 08/04/2020 8:15 AM
[2020-08-04 08:26] LABS: Alanine Aminotransferase 19 U/L (12-78); Albumin Level 2.7 gm/dl (3.4-5.0); Aspartate Aminotransferase 14 U/L (15-37); BUN Creatinine Ratio 17.3 (10-20); Blood Urea Nitrogen 23 mg/dl (7-18); Calcium 9.1 mg/dl (8.5-10.1); Carbon Dioxide 22 mmol/L (21-32); Chloride 112 mmol/L (98-107); Est GFR (African American) 44.8 ml/min; Est GFR (Non-African American) 38.6 ml/min; Glucose 295 mg/dl (70-99); Potassium 3.4 mmol/L (3.5-5.1); Sodium 144 mmol/L (136-145)
[2020-08-04 08:29] LABS: Albumin Globulin Ratio 0.8 (0.9-2); Alkaline Phosphatase 65 U/L (45-117); Bilirubin,Total 0.3 mg/dl (0.2-1); Globulin 3.3 gm/dl (2.5-4.0)
[2020-08-04] MEDS ORDERED: PANTOprazole 40 MG in SYRINGE 0 ML IV STA (08:30)
[2020-08-04] MEDS ORDERED: VANCOMYCIN HCL 1,500 MG in SODIUM CHLORIDE 0.9% 500 ML IV ONE (08:30)
[2020-08-04] MEDS ORDERED: bisacodyL 5 MG TABEC PO SCH (09:00)
[2020-08-04] MEDS ORDERED: CHOLECALCIFEROL 1,000 UNITS 25 MCG TAB PO SCH (09:00)
[2020-08-04] MEDS ORDERED: PIPERACILLIN/TAZOBACTAM 3.375 GM in DEXTROSE 5% 100 ML IV ONE (09:00)
[2020-08-04] MEDS ORDERED: MULTIVITAMIN TAB PO SCH (09:00)
[2020-08-04 09:36] LABS: Estimated Average Glucose 148 mg/dl; Hemoglobin A1C 6.8 % (4.5-5.6)
--- NOTE | 2020-08-04 09:49 | Orthopedic Consultation ---
Date of Consultation August 04, 2020 Assessment & Plan (1) Hematoma of left lower extremity: The patient is a 79-year-old female who presented with acute atraumatic left left lower extremity hematoma extending from the groin to her mid calf. Hematoma superficial as noted on Doppler, compartments are soft and compressible, with low concern for compartment syndrome at this time however due to the underlying thrombus, diminished pulses, extensive hematoma from the groin to the lower leg and due to the atraumatic and chronic nature of the hematoma recommend vascular consultation for further evaluation and treatment of the above issues and assess for source for her bleeding. Ice and elevation of the left lower extremity. Will obtain x-rays of the femur and tib-fib. Thank you for the consultation. XRays of the femur and lower leg were negative for fracture. History of Present Illness Reason for Consultation: Left upper and lower leg hematoma Attending Physician: Anup Ortega MD History of Present Illness The patient is a 79-year-old female with past medical history noted below, patient has aphasia secondary to prior stroke, majority of the HPI was obtained from the chart/medical record who presented to [facility] secondary to abdominal pain and distention and left lower leg atraumatic swelling. Patient is not verbal but will shake her head yes or no. Moaning intermittantly, more so with exam of proximal hematoma than lower. Imaging obtained in the emergency department demonstrated extensive subcutaneous hematoma left upper and lower leg, DVT left lower leg. Patient was seen in the emergency department February 2020 for left popliteal DVT, also noted on documentation patient had medial proximal inner thigh hematoma at that time. Allergies Allergy/AdvReac Type Severity Reaction Status Date / Time No Known Allergies Allergy Verified 08/03/20 23:35 Home Medications Medication Instructions Recorded Confirmed Type aspirin 81 mg PO QAM 02/03/18 08/03/20 History glipizide 10 mg PO BID 02/03/18 08/03/20 History magnesium oxide 400 mg PO QAM 02/03/18 08/03/20 History omeprazole 20 mg PO DAILYBB 02/03/18 08/03/20 History acetaminophen [Tylenol] 650 mg PO Q8H PRN MDD 3 GMS 06/20/19 08/03/20 History APAP/24 HOURS baclofen 5 mg PO BID 06/20/19 08/03/20 History famotidine 20 mg PO HS 06/20/19 08/03/20 History loratadine [Claritin] 10 mg PO HS 06/20/19 08/03/20 History sennosides-docusate sodium 1 tab PO BID 06/20/19 08/03/20 History [Senna-S] sodium chloride [Saline Nasal Mist] 2 spray INTRANASAL QID 06/20/19 08/03/20 History Desenex 1 applic TOPICAL BID 12/12/19 08/03/20 History bisacodyl 5 mg PO QAM 12/12/19 08/03/20 History furosemide 20 mg PO Q OTHER DAY 12/12/19 08/03/20 History Januvia 25 mg PO QAM 12/13/19 08/03/20 History Saccharomyces boulardii 250 mg PO BID 03/13/20 08/03/20 History cholecalciferol (vitamin D3) 125 mcg PO QAM 03/13/20 08/03/20 History [Vitamin D3] levothyroxine 125 mcg PO DAILYBB 03/13/20 08/03/20 History enoxaparin [Lovenox] 80 mg SUBCUT Q12H 08/03/20 08/03/20 History multivitamin [Daily-Pan] 1 tab PO QAM 08/03/20 08/03/20 History warfarin 5 mg PO HS 08/03/20 08/03/20 History zinc oxide 1 applic TOPICAL TID 08/03/20 08/03/20 History Patient History Medical History (Updated 08/04/20 @ 17:50 by Anup Ortega MD) Alzheimer's dementia Chronic venous stasis dermatitis of both lower extremities CKD (chronic kidney disease) stage 3, GFR 30-59 ml/min Dementia Diabetes H/O kidney disease Hypertension Hypothyroid Morbid obesity Surgical History History of hip surgery b/l KVNG History of hysterectomy S/P carpal tunnel release S/P hernia repair Family History Other Family history non-contributory Social History Smoking Status: Never smoker Hx Alcohol Use: No Hx Substance Use: No Preferred Language: Uzbek Communication Ability: Impaired Visual Impairment: Limited Hearing Ability: Normal Director [place] Required: No Beliefs That Will Affect Care: None marital status: Current Living Situation: [facility] Current Living Situation Comment: [employer] current occupational status: retired Feels Safe at Home: No Is there a partner from a previous relationship who is making you feel unsafe now?: No Assistive Devices: Glasses Review of Systems Review of Systems: Other Aphasia Constitutional: as per Subjective / HPI Physical Exam Physical Exam: Left lower extremity physical exam limited, large medial lower leg hematoma with ecchymoses and large medial upper thigh hematoma with ecchymoses, compartments are soft and compressible, tenderness with palpation medial upper thigh, passive range of motion of the ankle without significant discomfort and gentle range of motion of the knee with mild discomfort. Skin overlying hematoma is clean dry and intact. Constitutional: WD/WN, vitals as above Results & Data ([facility]) Vital Signs (Past 12 Hours) Vital Signs Temp Pulse Pulse Resp BP BP BP 08/04/20 07:29 104 H 18 56/50 L 54/52 L 08/04/20 07:28 103 H 18 08/04/20 06:12 34.7 C L 08/04/20 05:00 34.5 C L 08/04/20 04:32 34.8 C L 73 18 95/57 L 08/04/20 04:30 34.8 C L 08/04/20 02:34 107 H 20 93/67 L 08/04/20 02:25 114 H 20 99/56 L 08/04/20 02:00 108 H 16 99/56 L 08/04/20 01:39 113 H 20 107/70 08/04/20 01:12 104 H 20 70/45 L 08/04/20 00:39 111 H 22 95/76 L 08/03/20 23:30 97 H 15 123/93 08/03/20 23:29 85 18 115/77 08/03/20 22:53 37.0 C 134 H 20 130/73 08/03/20 22:46 134 H 20 130/73 BP Pulse Ox 08/04/20 07:29 96 08/04/20 07:28 67/42 L 96 08/04/20 06:12 08/04/20 05:00 08/04/20 04:32 95 08/04/20 04:30 08/04/20 02:34 93 08/04/20 02:25 95 08/04/20 02:00 94 08/04/20 01:39 92 08/04/20 01:12 94 08/04/20 00:39 93 08/03/20 23:30 92 08/03/20 23:29 08/03/20 22:53 95 08/03/20 22:46 95 Diagnostic Findings LEFT LOWER EXTREMITY VENOUS DOPPLER HISTORY: large hematoma vs clot left leg COMPARISON STUDY: None. FINDINGS: Large complex fluid collection measuring approximately 35 x 6 x 5 cm extending from the left groin to the mid calf. This likely represents a hematoma. Thrombus identified within the left posterior tibial and peroneal veins. The proximal calf vessels were not well visualized due to compression from the large fluid collection. Color flow identified within the common femoral, superficial femoral, popliteal veins which are likely patent. IMPRESSION: 1. Large complex fluid collection extending from the left groin to the mid calf measuring 35 x 6 x 5 cm. This favors a subcutaneous hematoma. 2. There appears to be thrombus identified within the left posterior tibial and peroneal veins. CT abd pelvis IV con only CLINICAL HISTORY: abdominal swelling, pain, recently started Lovenox COMPARISON STUDY: 05/16/2020 TECHNIQUE: The patient was scanned in a dynamic helical fashion during intravenous administration of 84 cc of Optiray 320 A dose lowering technique was utilized adhering to the principles of ALARA. CT DOSE: 1188.84 mGy.cm FINDINGS: Lower chest: There are subtle bilateral groundglass opacities with mild lower lobe bronchial wall thickening and dependent opacities, likely atelectatic. There is a hiatal hernia Liver: The contrast-enhanced liver is normal in size, contour, and attenuation. There is no intrahepatic biliary ductal dilatation. The hepatic veins and portal veins are patent. Gallbladder: There are equivocal gallstones present. Spleen: Normal in size and attenuation. Pancreas: Unremarkable. Adrenal glands: There is stable mild left adrenal nodularity. Kidneys: There is right-sided nephrolithiasis. No solid renal masses are visualized. There is no evidence of hydronephrosis. Bowel: There is gaseous distention of the colon. There are no transition zones to indicate bowel obstruction. There is stool and fluid within the rectosigmoid. There are opaque densities within the rectum, likely representing pill fragments. There is no evidence of acute diverticulitis. There is borderline rectosigmoid wall thickening. There are no findings to indicate acute appendicitis. Peritoneum: There is no intraperitoneal free air or abdominal ascites. Vasculature: The abdominal aorta is normal in course and caliber. Adenopathy: None. Pelvic viscera: Evaluation the pelvis is limited due to artifact from bilateral hip arthroplasties. The patient appears be status post a prior hysterectomy. Skeletal structures: There are multilevel spondylytic changes within the spine. There is multilevel spinal stenosis. No destructive lesions are visualized. The study is somewhat compromised from a technical standpoint due to motion artifact. IMPRESSION: 1. Motion degraded study 2. No evidence of bowel obstruction. No evidence of free air 3. Colonic distention 4. Right-sided nephrolithiasis. No evidence of hydronephrosis 5. Probable cholelithiasis (1) Hematoma of left lower extremity Encounter type: initial encounter Qualified Code(s): S80.12XA - Contusion of left lower leg, initial encounter
[2020-08-04] MEDS: PATIENT'S HEIGHT AND/OR WEIGHT NEEDED SCH ×8 (09:51→12:21)
[2020-08-04] MEDS: MICONAZOLE NITRATE POWDER 43 GM TOP SCH ×2 (09:52→21:42)
[2020-08-04] MEDS: Standard Conc 16mcg/mL; 8mg in 500mL IV SCH (10:42)
[2020-08-04] MEDS: SACCHAROMYCES BOULARDII 250 MG CAP PO SCH ×2 (10:48→20:29)
[2020-08-04] MEDS: DOCUSATE SODIUM/SENNA 50/8.6MG TAB PO SCH ×2 (10:48→19:59)
[2020-08-04] MEDS: BACLOFEN 10 MG TAB PO SCH ×2 (10:50→19:59)
--- NOTE | 2020-08-04 11:13 | XRay Report ---
XR pelvis 1-2V routine CLINICAL HISTORY: hematoma r/o fracture COMPARISON STUDY: Abdomen and pelvis CT 08/03/2020. FINDINGS: There are bilateral total hip arthroplasties. The hardware appears intact. No fracture or d islocation within the pelvis or hips. Distended gas and stool-filled colon is again noted. This is si milar to the prior study. IMPRESSION: 1. No fracture or dislocation within the pelvis or hips. 2. No change in the distended gas and stool-filled colon. ACT 112: Negative or not required by law. Electronically signed by: Raj Frost M.D. 08/04/2020 11:12 AM
--- NOTE | 2020-08-04 11:24 | XRay Report ---
XR femur LT 2V routine CLINICAL HISTORY: Hematoma in the thigh. Evaluate for fracture COMPARISON: 02/03/2018 DISCUSSION: There are postsurgical changes of a total left hip arthroplasty. No acute fractures are v isualized on the provided images. An AP view of the distal femur is not included. The crosstable late ral view is significantly obliqued. The bones are osteopenic. IMPRESSION: 1. Technically limited study 2. Osteopenia 3. Total left hip arthroplasty 4. No acute fractures identified ACT 112: Negative or not required by law. Electronically signed by: Bernardo Colby M.D. 08/04/2020 11:22 AM
--- NOTE | 2020-08-04 12:38 | Critical Care Consultation ---
Date of Consultation August 04, 2020 Assessment & Plan (1) Hematoma of left lower extremity: Reason Critically Ill: 79-year-old female with acute blood loss anemia secondary to left lower extremity hematoma PLAN: Neuro: Dementia -History of aphasia daughter reports that she can usually communicate with pen and paper or word board CV: Hypotension -Secondary to acute blood loss anemia Fluids/Renal: Acute kidney injury -Volume resuscitation ID: Monitor fever curve GI/Nutrition: N.p.o. Heme: History acute venous thromboembolism -Complicated by acute lower extremity hematoma DVT prophylaxis: Mechanical prophylaxis contraindicated chemical prophylaxis contraindicated -Vascular studies demonstrate emboli in bilateral lower extremities -I had a long discussion with family regarding possibility of filter. I was unable to place central venous access at this time due to volume depletion. Family admits that she has not wanted extremely aggressive measures at this time and filter would be unable to be placed due to poor vascular access we will continue with volume resuscitation and continue monitoring and retouch on this issue. The patient's daughter was a former intensive care respiratory therapist and she will be contacting her other brother and sister to update them and hopefully arrive at a mutual agreement in terms of therapies moving forward. Daughter confirmed that she is DNR/DNI in event of cardiac arrest or respiratory insufficiency. Endocrine: ICU hyperglycemia protocol Consider IV insulin once better access is obtained Vascular access: Bilateral femoral lines contraindicated secondary to hematoma and clot burden -Unable to place right internal jugular vein CVC Code Status: DNR Disposition: ICU (2) Hematoma of left lower extremity: (3) Intractable pain: (4) Chronic pulmonary embolism: (5) Acute deep vein thrombosis of right iliac vein: (6) Acute deep vein thrombosis (DVT) of right femoral vein: Supervising Physician Co-Signing Physician Notes I have personally spent 90 minutes of critical care time in the direct management of this patient. This is a life/limb threatening event. This includes time spent evaluating patient, direct bedside care, chart review, placing orders, interpretation of diagnostic studies, discussion with consultants, patient, and/or family members regarding treatment decisions, as well as other required patient management activities. This time is exclusive of all separately billable procedures, and teaching time and separate from and in addition to any other critical care service time. History of Present Illness Attending Physician: Anup Ortega MD History is limited as patient is aphasic secondary to stroke. She was transferred from the floor after being diagnosed with a acute left lower extremity DVT and was started on anticoagulation and she developed a significant lower left extremity hematoma with significant acute blood loss anemia. She has been started on 3 units of packed red blood cells for hypotension and has peripheral vasoactive medication being administered. Patient's daughter provided consent for central venous access. Patient is a DNR/DNI in event of cardiac arrest or respiratory insufficiency. Allergies Allergy/AdvReac Type Severity Reaction Status Date / Time No Known Allergies Allergy Verified 08/03/20 23:35 Home Medications Medication Instructions Recorded Confirmed Type aspirin 81 mg PO QAM 02/03/18 08/03/20 History glipizide 10 mg PO BID 02/03/18 08/03/20 History magnesium oxide 400 mg PO QAM 02/03/18 08/03/20 History omeprazole 20 mg PO DAILYBB 02/03/18 08/03/20 History acetaminophen [Tylenol] 650 mg PO Q8H PRN MDD 3 GMS 06/20/19 08/03/20 History APAP/24 HOURS baclofen 5 mg PO BID 06/20/19 08/03/20 History famotidine 20 mg PO HS 06/20/19 08/03/20 History loratadine [Claritin] 10 mg PO HS 06/20/19 08/03/20 History sennosides-docusate sodium 1 tab PO BID 06/20/19 08/03/20 History [Senna-S] sodium chloride [Saline Nasal Mist] 2 spray INTRANASAL QID 06/20/19 08/03/20 History Desenex 1 applic TOPICAL BID 12/12/19 08/03/20 History bisacodyl 5 mg PO QAM 12/12/19 08/03/20 History furosemide 20 mg PO Q OTHER DAY 12/12/19 08/03/20 History Januvia 25 mg PO QAM 12/13/19 08/03/20 History Saccharomyces boulardii 250 mg PO BID 03/13/20 08/03/20 History cholecalciferol (vitamin D3) 125 mcg PO QAM 03/13/20 08/03/20 History [Vitamin D3] levothyroxine 125 mcg PO DAILYBB 03/13/20 08/03/20 History enoxaparin [Lovenox] 80 mg SUBCUT Q12H 08/03/20 08/03/20 History multivitamin [Daily-Pan] 1 tab PO QAM 08/03/20 08/03/20 History warfarin 5 mg PO HS 08/03/20 08/03/20 History zinc oxide 1 applic TOPICAL TID 08/03/20 08/03/20 History Patient History Medical History (Updated 08/04/20 @ 15:31 by Humberto Hodges DO) Alzheimer's dementia Chronic venous stasis dermatitis of both lower extremities CKD (chronic kidney disease) stage 3, GFR 30-59 ml/min Dementia Diabetes H/O kidney disease Hypertension Hypothyroid Morbid obesity Surgical History History of hip surgery b/l KVNG History of hysterectomy S/P carpal tunnel release S/P hernia repair Family History Other Family history non-contributory Social History Smoking Status: Never smoker Hx Alcohol Use: No Hx Substance Use: No Preferred Language: Gambian Communication Ability: Impaired Visual Impairment: Limited Hearing Ability: Normal Rig Builder Required: No Beliefs That Will Affect Care: None marital status: Current Living Situation: [facility] Current Living Situation Comment: [facility] current occupational status: retired Other Information That Helps Us Care for You: No Feels Safe at Home: No Is there a partner from a previous relationship who is making you feel unsafe now?: No Any Concerns about Your Family Situation: No Would You Like to Speak to Someone About Your Situation: No Safety Concerns: Feels Safe At This Time Assistive Devices: Glasses, Oxygen - at Night and Wheelchair Review of Systems Review of Systems: Unobtainable due to cognitive status Physical Exam Physical Exam: General: Alert. nontoxic. Skin: dry, cool and pale Head: Atraumatic Ears, nose, mouth and throat: airway patent Cardiovascular: Normal peripheral perfusion Respiratory: no respiratory distress Gastrointestinal: Non distended Musculoskeletal: Significant swelling and weeping of the left lower extremity Results & Data Results & Data ([facility]) Vital Signs (Past 12 Hours) Vital Signs Temp Pulse Pulse Resp BP BP BP 08/04/20 12:20 34.2 C L 18 87/54 L 08/04/20 12:19 34.2 C L 118 H 18 87/54 L 08/04/20 12:10 34.2 C L 95 H 18 87/54 L 08/04/20 11:10 34.1 C L 96 H 14 87/64 L 08/04/20 10:40 34 C L 117 H 18 71/53 L 08/04/20 10:36 34 C L 90 16 86/43 L 08/04/20 10:35 34 C L 89 12 92/51 L 08/04/20 10:25 34 C L 110 H 18 76/41 L 08/04/20 09:30 106 H 16 08/04/20 09:10 106 H 16 100/54 L 08/04/20 07:29 104 H 18 56/50 L 54/52 L 08/04/20 07:28 103 H 18 08/04/20 06:12 34.7 C L 08/04/20 05:00 34.5 C L 08/04/20 04:32 34.8 C L 73 18 95/57 L 08/04/20 04:30 34.8 C L 08/04/20 02:34 107 H 20 93/67 L 08/04/20 02:25 114 H 20 99/56 L 08/04/20 02:00 108 H 16 99/56 L 08/04/20 01:39 113 H 20 107/70 08/04/20 01:12 104 H 20 70/45 L 08/04/20 00:39 111 H 22 95/76 L BP Pulse Ox 08/04/20 12:20 97 08/04/20 12:19 100 08/04/20 12:10 97 08/04/20 11:10 98 08/04/20 10:40 100 08/04/20 10:36 99 08/04/20 10:35 99 08/04/20 10:25 100 08/04/20 09:30 100 08/04/20 09:10 98 08/04/20 07:29 96 08/04/20 07:28 67/42 L 96 08/04/20 06:12 08/04/20 05:00 08/04/20 04:32 95 08/04/20 04:30 08/04/20 02:34 93 08/04/20 02:25 95 08/04/20 02:00 94 08/04/20 01:39 92 08/04/20 01:12 94 08/04/20 00:39 93 Laboratory Results 08/04/20 08/04/20 08/04/20 Range/Units 11:31 09:09 07:47 WBC (4.8-10.8) K/uL RBC (4.2-5.4) M/uL Hgb (12.0-16.0) g/dL Hct (37-47) % MCV (80-100) fL MCH (25-34) pg MCHC (32-36) g/dL RDW Std Deviation (36.4-46.3) fL RDW Coeff of Valente (11.5-14.5) % Plt Count (130-400) K/uL MPV (7.4-10.4) fL Immature Gran % (Auto) % Neut % (Auto) % Lymph % (Auto) % [place] % (Auto) % Eos % (Auto) % Baso % (Auto) % Neut # (Auto) (1.4-6.5) K/uL Lymph # (Auto) (1.2-3.4) K/uL [place] # (Auto) (0.11-0.59) K/uL Eos # (Auto) (0-0.5) K/uL Baso # (Auto) (0-0.2) K/uL Immature Gran # (Auto) (0.00-0.02) K/uL PT (9.0-12.0) Seconds INR (0.9-1.1) APTT (21.0-31.0) Seconds PTT Ratio Sodium (136-145) mmol/L Potassium (3.5-5.1) mmol/L Chloride (98-107) mmol/L Carbon Dioxide (21-32) mmol/L Anion Gap (3-11) BUN (7-18) mg/dl Creatinine (0.6-1.2) mg/dl Est Cr Clr Drug Dosing Est GFR ( Amer) ml/min Est GFR (Non-Af Amer) ml/min BUN/Creatinine Ratio (10-20) Glucose (70-99) mg/dl POC Glucose 319 H* (70-99) mg/dl Estimat Average Glucose mg/dl Hemoglobin A1c (4.5-5.6) % Calcium (8.5-10.1) mg/dl Magnesium (1.8-2.4) mg/dl Total Bilirubin (0.2-1) mg/dl Direct Bilirubin (0-0.2) mg/dl AST (15-37) U/L ALT (12-78) U/L Alkaline Phosphatase (45-117) U/L Total Creatine Kinase (26-192) U/L Troponin I (0-0.045) ng/ml Total Protein (6.4-8.2) gm/dl Albumin (3.4-5.0) gm/dl Globulin (2.5-4.0) gm/dl Albumin/Globulin Ratio (0.9-2) Lipase (73-393) U/L Nasal Screen MRSA (PCR) Negative (Negative) COVID-19 Eval Order SARS-CoV-2 (PCR) (Negative) Blood Type Blood Type Recheck A Positive Antibody Screen Crossmatch 08/04/20 08/04/20 08/04/20 Range/Units 07:47 07:47 07:46 WBC 19.71 H (4.8-10.8) K/uL RBC 2.01 L (4.2-5.4) M/uL Hgb 6.3 L* D (12.0-16.0) g/dL Hct 18.3 L* (37-47) % MCV 91.0 (80-100) fL MCH 31.3 (25-34) pg MCHC 34.4 (32-36) g/dL RDW Std Deviation 46.4 H (36.4-46.3) fL RDW Coeff of Valente 13.8 (11.5-14.5) % Plt Count 338 (130-400) K/uL MPV 9.9 (7.4-10.4) fL Immature Gran % (Auto) 0.5 % Neut % (Auto) 83.5 % Lymph % (Auto) 11.9 % [place] % (Auto) 3.9 % Eos % (Auto) 0.1 % Baso % (Auto) 0.1 % Neut # (Auto) 16.46 H (1.4-6.5) K/uL Lymph # (Auto) 2.35 (1.2-3.4) K/uL [place] # (Auto) 0.77 H (0.11-0.59) K/uL Eos # (Auto) 0.01 (0-0.5) K/uL Baso # (Auto) 0.02 (0-0.2) K/uL Immature Gran # (Auto) 0.10 H (0.00-0.02) K/uL PT 15.1 H (9.0-12.0) Seconds INR 1.5 H (0.9-1.1) APTT 38.2 H (21.0-31.0) Seconds PTT Ratio 1.5 Sodium (136-145) mmol/L Potassium (3.5-5.1) mmol/L Chloride (98-107) mmol/L Carbon Dioxide (21-32) mmol/L Anion Gap (3-11) BUN (7-18) mg/dl Creatinine (0.6-1.2) mg/dl Est Cr Clr Drug Dosing Est GFR ( Amer) ml/min Est GFR (Non-Af Amer) ml/min BUN/Creatinine Ratio (10-20) Glucose (70-99) mg/dl POC Glucose (70-99) mg/dl Estimat Average Glucose 148 mg/dl Hemoglobin A1c 6.8 H (4.5-5.6) % Calcium (8.5-10.1) mg/dl Magnesium (1.8-2.4) mg/dl Total Bilirubin (0.2-1) mg/dl Direct Bilirubin (0-0.2) mg/dl AST (15-37) U/L ALT (12-78) U/L Alkaline Phosphatase (45-117) U/L Total Creatine Kinase (26-192) U/L Troponin I (0-0.045) ng/ml Total Protein (6.4-8.2) gm/dl Albumin (3.4-5.0) gm/dl Globulin (2.5-4.0) gm/dl Albumin/Globulin Ratio (0.9-2) Lipase (73-393) U/L Nasal Screen MRSA (PCR) (Negative) COVID-19 Eval Order SARS-CoV-2 (PCR) (Negative) Blood Type Blood Type Recheck Antibody Screen Crossmatch 08/04/20 08/04/20 08/04/20 Range/Units 07:46 07:43 04:23 WBC (4.8-10.8) K/uL RBC (4.2-5.4) M/uL Hgb (12.0-16.0) g/dL Hct (37-47) % MCV (80-100) fL MCH (25-34) pg MCHC (32-36) g/dL RDW Std Deviation (36.4-46.3) fL RDW Coeff of Valente (11.5-14.5) % Plt Count (130-400) K/uL MPV (7.4-10.4) fL Immature Gran % (Auto) % Neut % (Auto) % Lymph % (Auto) % [place] % (Auto) % Eos % (Auto) % Baso % (Auto) % Neut # (Auto) (1.4-6.5) K/uL Lymph # (Auto) (1.2-3.4) K/uL [place] # (Auto) (0.11-0.59) K/uL Eos # (Auto) (0-0.5) K/uL Baso # (Auto) (0-0.2) K/uL Immature Gran # (Auto) (0.00-0.02) K/uL PT (9.0-12.0) Seconds INR (0.9-1.1) APTT (21.0-31.0) Seconds PTT Ratio Sodium 144 (136-145) mmol/L Potassium 3.4 L (3.5-5.1) mmol/L Chloride 112 H (98-107) mmol/L Carbon Dioxide 22 (21-32) mmol/L Anion Gap 10.0 (3-11) BUN 23 H (7-18) mg/dl Creatinine 1.31 H D (0.6-1.2) mg/dl Est Cr Clr Drug Dosing Not Reportable Est GFR ( Amer) 44.8 ml/min Est GFR (Non-Af Amer) 38.6 ml/min BUN/Creatinine Ratio 17.3 (10-20) Glucose 295 H (70-99) mg/dl POC Glucose 357 H* 404 H* (70-99) mg/dl Estimat Average Glucose mg/dl Hemoglobin A1c (4.5-5.6) % Calcium 9.1 (8.5-10.1) mg/dl Magnesium (1.8-2.4) mg/dl Total Bilirubin 0.3 (0.2-1) mg/dl Direct Bilirubin (0-0.2) mg/dl AST 14 L (15-37) U/L ALT 19 (12-78) U/L Alkaline Phosphatase 65 (45-117) U/L Total Creatine Kinase (26-192) U/L Troponin I (0-0.045) ng/ml Total Protein 6.0 L (6.4-8.2) gm/dl Albumin 2.7 L (3.4-5.0) gm/dl Globulin 3.3 (2.5-4.0) gm/dl Albumin/Globulin Ratio 0.8 L (0.9-2) Lipase (73-393) U/L Nasal Screen MRSA (PCR) (Negative) COVID-19 Eval Order SARS-CoV-2 (PCR) (Negative) Blood Type Blood Type Recheck Antibody Screen Crossmatch 08/04/20 08/03/20 08/03/20 Range/Units 04:22 23:50 23:50 WBC (4.8-10.8) K/uL RBC (4.2-5.4) M/uL Hgb (12.0-16.0) g/dL Hct (37-47) % MCV (80-100) fL MCH (25-34) pg MCHC (32-36) g/dL RDW Std Deviation (36.4-46.3) fL RDW Coeff of Valente (11.5-14.5) % Plt Count (130-400) K/uL MPV (7.4-10.4) fL Immature Gran % (Auto) % Neut % (Auto) % Lymph % (Auto) % [place] % (Auto) % Eos % (Auto) % Baso % (Auto) % Neut # (Auto) (1.4-6.5) K/uL Lymph # (Auto) (1.2-3.4) K/uL [place] # (Auto) (0.11-0.59) K/uL Eos # (Auto) (0-0.5) K/uL Baso # (Auto) (0-0.2) K/uL Immature Gran # (Auto) (0.00-0.02) K/uL PT (9.0-12.0) Seconds INR (0.9-1.1) APTT (21.0-31.0) Seconds PTT Ratio Sodium (136-145) mmol/L Potassium (3.5-5.1) mmol/L Chloride (98-107) mmol/L Carbon Dioxide (21-32) mmol/L Anion Gap (3-11) BUN (7-18) mg/dl Creatinine (0.6-1.2) mg/dl Est Cr Clr Drug Dosing Est GFR ( Amer) ml/min Est GFR (Non-Af Amer) ml/min BUN/Creatinine Ratio (10-20) Glucose (70-99) mg/dl POC Glucose 415 H* (70-99) mg/dl Estimat Average Glucose mg/dl Hemoglobin A1c (4.5-5.6) % Calcium (8.5-10.1) mg/dl Magnesium (1.8-2.4) mg/dl Total Bilirubin (0.2-1) mg/dl Direct Bilirubin (0-0.2) mg/dl AST (15-37) U/L ALT (12-78) U/L Alkaline Phosphatase (45-117) U/L Total Creatine Kinase (26-192) U/L Troponin I (0-0.045) ng/ml Total Protein (6.4-8.2) gm/dl Albumin (3.4-5.0) gm/dl Globulin (2.5-4.0) gm/dl Albumin/Globulin Ratio (0.9-2) Lipase (73-393) U/L Nasal Screen MRSA (PCR) (Negative) COVID-19 Eval Order Covid19 at [facility] SARS-CoV-2 (PCR) NEGATIVE (Negative) Blood Type Blood Type Recheck Antibody Screen Crossmatch 08/03/20 08/03/20 08/03/20 Range/Units 22:50 22:50 22:50 WBC (4.8-10.8) K/uL RBC (4.2-5.4) M/uL Hgb (12.0-16.0) g/dL Hct (37-47) % MCV (80-100) fL MCH (25-34) pg MCHC (32-36) g/dL RDW Std Deviation (36.4-46.3) fL RDW Coeff of Valente (11.5-14.5) % Plt Count (130-400) K/uL MPV (7.4-10.4) fL Immature Gran % (Auto) % Neut % (Auto) % Lymph % (Auto) % [place] % (Auto) % Eos % (Auto) % Baso % (Auto) % Neut # (Auto) (1.4-6.5) K/uL Lymph # (Auto) (1.2-3.4) K/uL [place] # (Auto) (0.11-0.59) K/uL Eos # (Auto) (0-0.5) K/uL Baso # (Auto) (0-0.2) K/uL Immature Gran # (Auto) (0.00-0.02) K/uL PT 15.0 H (9.0-12.0) Seconds INR 1.5 H (0.9-1.1) APTT 48.6 H* (21.0-31.0) Seconds PTT Ratio 1.8 Sodium 142 (136-145) mmol/L Potassium 3.5 (3.5-5.1) mmol/L Chloride 110 H (98-107) mmol/L Carbon Dioxide 22 (21-32) mmol/L Anion Gap 10.0 (3-11) BUN 16 (7-18) mg/dl Creatinine 0.95 (0.6-1.2) mg/dl Est Cr Clr Drug Dosing Not Reportable Est GFR ( Amer) 66.0 ml/min Est GFR (Non-Af Amer) 57.0 ml/min BUN/Creatinine Ratio 16.3 (10-20) Glucose 226 H (70-99) mg/dl POC Glucose (70-99) mg/dl Estimat Average Glucose mg/dl Hemoglobin A1c (4.5-5.6) % Calcium 9.7 (8.5-10.1) mg/dl Magnesium 1.6 L (1.8-2.4) mg/dl Total Bilirubin 0.4 (0.2-1) mg/dl Direct Bilirubin < 0.1 (0-0.2) mg/dl AST 11 L (15-37) U/L ALT 12 (12-78) U/L Alkaline Phosphatase 70 (45-117) U/L Total Creatine Kinase 25 L (26-192) U/L Troponin I < 0.015 (0-0.045) ng/ml Total Protein 6.8 (6.4-8.2) gm/dl Albumin 3.1 L (3.4-5.0) gm/dl Globulin (2.5-4.0) gm/dl Albumin/Globulin Ratio (0.9-2) Lipase 96 (73-393) U/L Nasal Screen MRSA (PCR) (Negative) COVID-19 Eval Order SARS-CoV-2 (PCR) (Negative) Blood Type A Positive Blood Type Recheck Antibody Screen NEGATIVE Crossmatch See Detail 08/03/20 Range/Units 22:50 WBC 13.13 H (4.8-10.8) K/uL RBC 4.02 L (4.2-5.4) M/uL Hgb 12.4 (12.0-16.0) g/dL Hct 36.2 L (37-47) % MCV 90.0 (80-100) fL MCH 30.8 (25-34) pg MCHC 34.3 (32-36) g/dL RDW Std Deviation 43.8 (36.4-46.3) fL RDW Coeff of Valente 13.3 (11.5-14.5) % Plt Count 296 (130-400) K/uL MPV 10.4 (7.4-10.4) fL Immature Gran % (Auto) 0.4 % Neut % (Auto) 52.8 % Lymph % (Auto) 35.0 % [place] % (Auto) 7.8 % Eos % (Auto) 3.7 % Baso % (Auto) 0.3 % Neut # (Auto) 6.95 H (1.4-6.5) K/uL Lymph # (Auto) 4.59 H (1.2-3.4) K/uL [place] # (Auto) 1.02 H (0.11-0.59) K/uL Eos # (Auto) 0.48 (0-0.5) K/uL Baso # (Auto) 0.04 (0-0.2) K/uL Immature Gran # (Auto) 0.05 H (0.00-0.02) K/uL PT (9.0-12.0) Seconds INR (0.9-1.1) APTT (21.0-31.0) Seconds PTT Ratio Sodium (136-145) mmol/L Potassium (3.5-5.1) mmol/L Chloride (98-107) mmol/L Carbon Dioxide (21-32) mmol/L Anion Gap (3-11) BUN (7-18) mg/dl Creatinine (0.6-1.2) mg/dl Est Cr Clr Drug Dosing Est GFR ( Amer) ml/min Est GFR (Non-Af Amer) ml/min BUN/Creatinine Ratio (10-20) Glucose (70-99) mg/dl POC Glucose (70-99) mg/dl Estimat Average Glucose mg/dl Hemoglobin A1c (4.5-5.6) % Calcium (8.5-10.1) mg/dl Magnesium (1.8-2.4) mg/dl Total Bilirubin (0.2-1) mg/dl Direct Bilirubin (0-0.2) mg/dl AST (15-37) U/L ALT (12-78) U/L Alkaline Phosphatase (45-117) U/L Total Creatine Kinase (26-192) U/L Troponin I (0-0.045) ng/ml Total Protein (6.4-8.2) gm/dl Albumin (3.4-5.0) gm/dl Globulin (2.5-4.0) gm/dl Albumin/Globulin Ratio (0.9-2) Lipase (73-393) U/L Nasal Screen MRSA (PCR) (Negative) COVID-19 Eval Order SARS-CoV-2 (PCR) (Negative) Blood Type Blood Type Recheck Antibody Screen Crossmatch Coding Level of Care Code Critical Care ea addt'l 30 min Diagnoses Hematoma of left lower extremity S80.12XA Encounter type: initial encounter Hematoma of left lower extremity S80.12XA Encounter type: initial encounter Intractable pain R52 Chronic pulmonary embolism I27.82 Pulmonary embolism type: unspecified Acute cor pulmonale presence: unspecified Acute deep vein thrombosis of right iliac vein I82.421 Acute deep vein thrombosis (DVT) of right femoral vein I82.411 (1) Hematoma of left lower extremity Encounter type: initial encounter Qualified Code(s): S80.12XA - Contusion of left lower leg, initial encounter (2) Hematoma of left lower extremity Encounter type: initial encounter Qualified Code(s): S80.12XA - Contusion of left lower leg, initial encounter (3) Chronic pulmonary embolism Pulmonary embolism type: unspecified Acute cor pulmonale presence: unspecified Qualified Code(s): I27.82 - Chronic pulmonary embolism
--- NOTE | 2020-08-04 12:45 | Hospitalist Progress Note ---
Date of Service August 04, 2020 Assessment & Plan (1) Shock circulatory: 1.5L NSS bolus. 3 units PRBCs ordered over 1 hour each. Transfer to ICU, need for vasopressors to be determined following fluid bolus. (2) Hematoma of left lower extremity: May need vascular studies but will defer to ICU Consult orthopedics due to risk of compartment syndrome. Hematoma of left lower extremity while on therapeutic subcu Lovenox and warfarin- Reversed with vitamin K 5mg IV and protamine sulfate in the ED Venous Dopplers note hematoma, but study was difficult to complete to assess presence of DVT (3) Hypothermia: Possible sepsis. Blood cultures x2. IV Vancomycin + Zosyn (4) CKD (chronic kidney disease) stage 3, GFR 30-59 ml/min: Cr increased to 1.31 this morning. Suspect due to acute blood loss as above. (5) Diabetes: Hold glipizide and Januvia Placed on Accu-Cheks before meals and at bedtime with NovoLog coverage per scale Hyperglycemia on admission. Start on insulin IV drip in ICU (6) DVT (deep venous thrombosis): Currently holding anticoagulation Chronic pulmonary embolus noted on CTA in November 2019 (7) Chronic pulmonary embolism: Holding warfarin and subcu Lovenox as noted (8) Aphasia: Inability to communicate due to previous strokes (9) Coronary artery disease: CAD/hypertension- Hold aspirin for now (10) Hypertension: See above (11) GERD (gastroesophageal reflux disease): Continue omeprazole /pantoprazole and famotidine at bedtime Admission and Anticipated Discharge Date Admission Date: August 04, 2020 Subjective Called by RN this morning as blood pressure 67/42. Patient is pale appearing. Unable to answer any questions even by nodding or shaking head, aphasic by report. Large hematoma present on left lower extremity. Labs not yet taken for the day. NSS 1.5L bolus ordered with stat labs and CXR. Patient has been hypothermic therefore possible sepsis and broad spectrum antibiotics ordered with Zosyn and vancomycin. Blood cultures x2 taken. 2nd IV line placed. Called and updated her daughter Neetu over the phone who confirmed longstanding DNR/DNI however vasopressors would be ok. Tried calling JUAN Diaz who Neetu has been in contact with directly but goes through to voicemail at this time (she is a preschool teacher aide and is likely teaching per her sister). Repeat Hgb 6.3 from 12.4 on admission. 3 units PRBCs ordered. Discussed with Assembly Leader Dr Hodges and patient will be transferred to ICU for higher level of care. Review of Systems Review of Systems: Unobtainable due to cognitive status Physical Exam Constitutional: + ill appearing (pale) Eyes: + conjunctival abnormality (pale) ENMT: Mouth: + dry oral mucous membranes Respiratory: normal respiratory effort, lungs clear to auscultation Cardiovascular: Rate/Rhythm: regular rate and regular rhythm Heart Sounds: no murmur Extremities: + calf tenderness (Left); + abnormal capillary refill (5-6 seconds peripherally) Skin: Trauma: + hematoma (Left groin to calf tense hematoma.) Neurologic: moves all extremities and awake; not confused Psychiatric: Orientation: alert; + not oriented x 3 Results & Data Results & Data ([facility]) Vital Signs (Past 12 Hours) Vital Signs Temp Pulse Pulse Resp BP BP BP 08/04/20 12:20 34.2 C L 18 87/54 L 08/04/20 12:19 34.2 C L 118 H 18 87/54 L 08/04/20 12:10 34.2 C L 95 H 18 87/54 L 08/04/20 11:10 34.1 C L 96 H 14 87/64 L 08/04/20 10:40 34 C L 117 H 18 71/53 L 08/04/20 10:36 34 C L 90 16 86/43 L 08/04/20 10:35 34 C L 89 12 92/51 L 08/04/20 10:25 34 C L 110 H 18 76/41 L 08/04/20 09:30 106 H 16 08/04/20 09:10 106 H 16 100/54 L 08/04/20 07:29 104 H 18 56/50 L 54/52 L 08/04/20 07:28 103 H 18 08/04/20 06:12 34.7 C L 08/04/20 05:00 34.5 C L 08/04/20 04:32 34.8 C L 73 18 95/57 L 08/04/20 04:30 34.8 C L 08/04/20 02:34 107 H 20 93/67 L 08/04/20 02:25 114 H 20 99/56 L 08/04/20 02:00 108 H 16 99/56 L 08/04/20 01:39 113 H 20 107/70 08/04/20 01:12 104 H 20 70/45 L BP Pulse Ox 08/04/20 12:20 97 08/04/20 12:19 100 08/04/20 12:10 97 08/04/20 11:10 98 08/04/20 10:40 100 08/04/20 10:36 99 08/04/20 10:35 99 08/04/20 10:25 100 08/04/20 09:30 100 08/04/20 09:10 98 08/04/20 07:29 96 08/04/20 07:28 67/42 L 96 08/04/20 06:12 08/04/20 05:00 08/04/20 04:32 95 08/04/20 04:30 08/04/20 02:34 93 08/04/20 02:25 95 08/04/20 02:00 94 08/04/20 01:39 92 08/04/20 01:12 94 PG Care Time/CCT Total # of Minutes Spent Total Time Spent with Patient: Total time spent is greater than 50% in coordination of care (as documented) at patient's floor/unit and/or counseling patient: Critical Care Time: Yes (7:35 to 8:40am) Total Critical Care Time: 65 Coding Level of Care Code None Diagnoses Shock circulatory R57.9 Hematoma of left lower extremity S80.12XA Hypothermia T68.XXXA CKD (chronic kidney disease) stage 3, GFR 30-59 ml/min N18.3 Diabetes E11.9 DVT (deep venous thrombosis) I82.409 Chronic pulmonary embolism I27.82 Aphasia R47.01 Coronary artery disease I25.10 Hypertension I10 GERD (gastroesophageal reflux disease) K21.9 Additional Codes Critical Care Time - Critical Care Time: Yes ([id number])
--- NOTE | 2020-08-04 12:46 | XRay Report ---
XR tibia fibula LT 2V CLINICAL HISTORY: Left lower leg hematoma COMPARISON: None DISCUSSION: The bones are osteopenic. Degenerative changes are present within the knee. There are no acute fractures. There is a medial soft tissue mass measuring 6 cm transversely and extending over a length in excess of 37 cm. The findings are consistent with the clinical history of a large hematoma. IMPRESSION: 1. Osteopenia 2. Degenerative change 3. Large medial soft tissue mass, consistent with the clinical history of a hematoma. ACT 112: Negative or not required by law. Electronically signed by: Bernardo Colby M.D. 08/04/2020 12:44 PM
[2020-08-04] MEDS ORDERED: INSULIN PROTOCOL GOAL RANGE ONE (13:28)
[2020-08-04] MEDS ORDERED: INSULIN REGULAR 250 UNITS in SODIUM CHLORIDE 0.9% 247.5 ML IV SCH (13:30)
--- NOTE | 2020-08-04 13:34 | Electrocardiogram Report ---
Test Reason : Blood Pressure : / mmHG Vent. Rate : 122 BPM Atrial Rate : 122 BPM P-R Int : 178 ms QRS Dur : 084 ms QT Int : 306 ms P-R-T Axes : 007 -05 -03 degrees QTc Int : 436 ms Sinus tachycardia Inferior infarct (cited on or before 03-FEB-2018) Anterolateral infarct (cited on or before 20-JUN-2019) Abnormal ECG When compared with ECG of 13-DEC-2019 10:04, Vent. rate has increased BY 61 BPM Questionable change in initial forces of Lateral leads ST now depressed in Lateral leads Confirmed by Luis Eduardo Núñez ([id number]) on 08/04/2020 1:34:06 PM Referred By: [facility] Confirmed By:Luis Eduardo Núñez
--- NOTE | 2020-08-04 13:41 | Pharmacy Report ---
Pharmacy Glycemic Short Note 2 - Date of Service August 04, 2020 - Glycemic Short BSG Results (Last 24 hours): 08/03/20 08/04/20 08/04/20 22:50 04:22 04:23 Glucose 226 H POC Glucose 415 H* 404 H* 08/04/20 08/04/20 08/04/20 07:43 07:46 11:31 Glucose 295 H POC Glucose 357 H* 319 H* OUTPATIENT ANTIDIABETIC REGIMEN: * Glipizide 10mg PO BID * Sitagliptin 25mg Q AM * A1c = 6.8% 08/04/20 ASSESSMENT: * Type 2 diabetic admitted to ICU for hypotension, large hematoma LLE, acute anemia * Patient is currently pressor dependent (norepi) * BSGs have ranged 300s - 400s since ICU admission. Will initiate IV insulin drip (without bolus) with simultaneous K+ repletion due to mild hypokalemia noted on AM labs today. Repeat PRP will be checked this evening to screen for worsening hypokalemia * She remains NPO at this time PLAN FOR INPATIENT GLYCEMIC CONTROL: * Hold outpatient oral diabetes medications (glipizide, sitagliptin) * Basal insulin * none * IV insulin drip: goal range 110-180mg/dL, titrate per rate adjustment calculator * Rapid acting insulin: * to be determined by rate adjustment calculator PLAN FOR DISCHARGE: * to be determined
[2020-08-04] MEDS ORDERED: PIPERACILLIN/TAZOBACTAM 3.375 GM in DEXTROSE 5% 100 ML IV SCH (14:00)
[2020-08-04] MEDS: POTASSIUM CHLORIDE / WTR 10 MEQ/100 ML PLCT IV SCH ×4 (14:04→17:47)
--- NOTE | 2020-08-04 18:35 | Billing Data ---
Date of Service August 04, 2020 Coding Level of Care Code Critical Care 1st mins
[2020-08-04] MEDS ORDERED: fentaNYL citrate 100 MCG/2 ML VIAL IV ONE (19:51)
[2020-08-04] MEDS ORDERED: fentaNYL citrate 100 MCG/2 ML VIAL ONE (19:52)
[2020-08-04 20:55] LABS: Hematocrit (blood only) 32.8 % (37-47); Hemoglobin 11.1 g/dL (12.0-16.0); Mean Corpuscular Hemoglobin 29.6 pg (25-34); Mean Corpuscular Hgb Conc 33.8 g/dL (32-36); Mean Corpuscular Volume 87.5 fL (80-100); RDW Coefficient of Variation 14.2 % (11.5-14.5); RDW Standard Deviation 45.6 fL (36.4-46.3); Red Blood Count 3.75 M/uL (4.2-5.4); White Blood Count 22.58 K/uL (4.8-10.8)
[2020-08-04] MEDS ORDERED: MoRPHine SULFATE 2 MG/ML CARP IV STA (20:59)
[2020-08-04] MEDS ORDERED: FAMOTIDINE 20 MG in SYRINGE 3 ML IV SCH (21:00)
[2020-08-04] MEDS ORDERED: FAMOTIDINE 20 MG TAB PO SCH (21:00)
--- NOTE | 2020-08-04 21:01 | Communication Note ---
Date of Service: August 04, 2020 Ms. Chung is a 79-year-old female with multiple comorbidities including CAD, chronic pulmonary embolism, right iliac vein DVT, right femoral vein DVT, DM ty pe II, CKD, and dementia. She is a resident of [facility] and per family is nonambulatory and aphasic at baseline. She was admitted early this morning with acute blood loss anemia from a large hematoma in her left lower extremity. Patient became hypotensive today and was transferred to the ICU and received 3 units RBCs. Following transfusion this afternoon the patient remains on vasopressor support and continues to be hypotensive. She has significant swelling in her left lower extremity from the calf to the thigh. She was reevaluated at the bedside this evening by Ortho, who recommended endovascular consult. Case was also discussed with metal wire coating operator Dr. Hodges. She does have a weak pulse to the left foot which was able to be dopplered but was reported to be palpable earlier. I strongly suspect that she is continuing to bleed in the left lower extremity as she remains hypotensive following blood transfusions, however due to her vasculature, she has been a very difficult stick and labs are still pending draw. I am also concerned that she is developing compartment syndrome to the left lower extremity. A central venous line was previously attempted earlier today but was unsuccessful due to her vasculature. Family also reports that the patient's living will states that she would not want aggressive measures and her CODE STATUS is currently DNR/DNI. I spoke with the patient's family extensively concerning her wishes and her current state of health. Family has gathered over the phone to have a family meeting involving all children. In short, family does not feel that it is within the patient's wishes to undergo surgical intervention. They understand that without surgical intervention this is llife-threatening should it continue to develop. They are aware that she is currently on vasopressors to support her blood pressure and will likely need further transfusions, however without surgical intervention her prognosis likely remains poor. At this time, family is in agreements to pursue comfort measures palliatively in lieu of aggressive medical management. The daughter lives close by and is coming to the bedside to be at the bedside. At this time we will continue current therapy with no escalation of care until family arrives at the bedside, in which the plan is to transition to comfort measures. Patient is receiving pain medication in the meantime as she is having significant pain from the left lower extremity. Plan was communicated with the patient's RN as well. CRITICAL CARE TIME - I have personally spent 55 minutes of critical care time in the direct management of this patient. This is a life/limb threatening event. This includes time spent evaluating patient, direct bedside care, chart review, placing orders, interpretation of diagnostic studies, discussion with consultants, patient, and family members, as well as other required patient management activities. This time is exclusive of all separately billable procedures, and teaching time and separate from and in addition to any other critical care service time. Coding Level of Care Code Critical Care milagro addt'l 30 min
[2020-08-04] MEDS ORDERED: MoRPHine SULFATE 2 MG/ML CARP ONE (21:02)
[2020-08-04 21:18] LABS: Mean Platelet Volume 10.7 fL (7.4-10.4); Platelet Count 156 K/uL (130-400); Platelet Estimate Normal (Normal)
[2020-08-04 21:31] LABS: BUN Creatinine Ratio 17.3 (10-20); Calcium 8.5 mg/dl (8.5-10.1); Creatinine Clr Calc Pharmacy 29.3 ml/min; Est GFR (African American) 40.6 ml/min
[2020-08-04] MEDS ORDERED: LORazepam 0.5 MG/1 ML VIAL IV PRN (22:00)
[2020-08-04] MEDS ORDERED: ONDANSETRON 4 MG OD TAB SL PRN (22:00)
[2020-08-04 22:03] LABS: Potassium 5.1 mmol/L (3.5-5.1)
--- NOTE | 2020-08-04 23:00 | Communication Note ---
Date of Service: August 04, 2020 Patient's daughter and son-in-law who is a electric meter repairer helper presented to the bedside and we had further discussion involving goals of care/CODE STATUS. At this time the family is not ready to fully withdraw care but would also not like to pursue further aggressive measures should the patient decompensate. They would like to leave her as she currently is with no escalation of care. They are aware that her prognosis is very poor. I updated them on recent labs and notified them that she has a new metabolic acidosis. Her lactic acid is pending result. Vilchis spect this may be ischemia from the lower extremity versus infection, although no source has been identified and she remains on antibiotics. In conclusion, we will continue with current medical management including Levophed drip at its current rate and insulin drip for the time being. Family would like to reevaluate the patient's condition in the morning, however they are aware that she could pass overnight. I have added on modified comfort measures as they would like to ensure the patient remains comfortable during this time. Plan has been communicated with the patient's bedside RN as well. CRITICAL CARE TIME - I have personally spent 20 minutes of critical care time in the direct management of this patient. This is a life/limb threatening event. This includes time spent evaluating patient, direct bedside care, chart review, placing orders, interpretation of diagnostic studies, discussion with consultants, patient, and family members, as well as other required patient management activities. This time is exclusive of all separately billable procedures, and teaching time and separate from and in addition to any other critical care service time. I was advised of the developments overnight and in agreement with no escalation of care. I have completed the certificate: Immediate cause of : Left lower extremity ischemia as consequence of left lower extremity hematoma as a consequence of systemic anticoagulation as consequence of acute right lower extremity DVT. Significant conditions contributing to : Chronic pulmonary embolism, coronary artery disease, chronic kidney disease, dementia An autopsy was not performed and autopsy findings not available at the time of this completion of certificate, this appeared to be a natural manner of . Coding Level of Care Code Critical Care ea addt'l 30 min
[2020-08-04] MEDS: MoRPHine SULFATE 2 MG/ML CARP IV PRN (23:13)
[2020-08-05] MEDS: Standard Conc 16mcg/mL; 8mg in 500mL IV SCH (02:56)
[2020-08-05] MEDS: MoRPHine SULFATE 2 MG/ML CARP IV PRN (04:16)
--- NOTE | 2020-08-05 05:23 | Death Pronouncement Note ---
Date of Service August 05, 2020 Pronouncement Note Admission Date Admission Date: August 04, 2020 Contributing Factors (1) Shock circulatory: (2) Hematoma of left lower extremity: (3) Hypothermia: (4) CKD (chronic kidney disease) stage 3, GFR 30-59 ml/min: (5) Diabetes: (6) DVT (deep venous thrombosis): (7) Chronic pulmonary embolism: (8) Aphasia: (9) Coronary artery disease: (10) Hypertension: (11) GERD (gastroesophageal reflux disease): Summary Additional details: PRONOUNCEMENT NOTE - Date: 08/05/2020 Time: 0500 I was contacted by nursing staff regarding the patients declining status and concerns for imminent demise. In short, patient was admitted from [facility] with left lower extremity hematoma. She was previously on anticoagulation for DVTs/PEs. She was transfused with 3 units RBCs, but there was concern for developing compartment syndrome to the left lower extremity. Patient suffers from dementia and family did not think that she would want surgical intervention. Patient was DNR/DNI and per family wishes, was made no escalation of care. I was notified by the RN that the patient was becoming increasingly bradycardic, with shallow breathing, and weaker pulse. I did call the patient's daughter to notify her that her mother was continuing to decompensate. Shortly after, the patient became asystolic and was pronounced at 0500 this morning by myself. I did call the patient's daughter Evelina and informed her that her mother had passed. She would like for someone from the hospital to call back in a couple of hours to obtain home information. Assessment: I presented to the patients room for evaluation. Upon assessment, the patient was found to be in a terminal state. Pupils were fixed and dilated without response. No palpable pulses appreciated. No spontaneous breaths noted. Heart sounds were absent. No response to painful stimuli. Time of : 0500 as pronounced by myself. Patients primary service was contacted and made aware of patient demise. Pronouncement section of the Certificate was filled out and signed by myself. Cause of : Primary -hematoma left lower extremity Secondary -compartment syndrome Contributing Causes of -acute blood loss anemia Please feel free to contact me with any questions regarding the above-mentioned course. Additional Data Attending physician: Anup Ortega MD Coding Level of Care Code None Diagnoses Shock circulatory R57.9 Hematoma of left lower extremity S80.12XA Encounter type: initial encounter Hypothermia T68.XXXA CKD (chronic kidney disease) stage 3, GFR 30-59 ml/min N18.3 Diabetes E11.9 DVT (deep venous thrombosis) I82.409 Chronic pulmonary embolism I27.82 Acute cor pulmonale presence: unspecified Pulmonary embolism type: unspecified Aphasia R47.01 Coronary artery disease I25.10 Hypertension I10 GERD (gastroesophageal reflux disease) K21.9
[2020-08-05] MEDS ORDERED: PANTOprazole 40 MG in SYRINGE 0 ML IV SCH (11:00)
--- NOTE | 2020-08-05 14:11 | Discharge Summary ---
Date of Service August 05, 2020 Admission HPI Per Admitting Provider The patient is a 79-year-old female resident of [facility] with a PMH including oropharyngeal dysphagia, constipation, GERD, CAD, venous insufficiency, aphasia, chronic pulmonary embolism, right iliac vein DVT, right femoral vein DVT, sepsis, history of renal failure, dementia, hypernatremia, ZULMA on CKD, CKD, chronic venous stasis dermatitis, UTI, venous stasis ulcer, hypertension, hypothyroidism, diabetes mellitus and pneumonia. The patient reportedly had been started on Lovenox and warfarin for a recent diagnosis of DVT, and was noted to have rapidly increasing swelling and left calf toward groin pain. Admission Exam Per Admitting Provider The patient with limited ability to respond, well developed and well nourished, normocephalic and atraumatic, lying in bed and in no acute distress. HEENT--PERRL, EOMI, mucous membranes and oropharynx normal Neck--supple. No JVD. No bruits. Thyroid normal, trachea midline, no adenopathy. Heart--normal S1 and S2. No murmurs, rubs or gallops. Lungs--clear bilaterally, no respiratory distress, no accessory muscle use. Abdomen--normal bowel sounds and soft. Nontender. Nondistended. Extremities--right lower extremity normal except for chronic venous stasis dermatitis changes. Left lower extremity with large hematoma from medial aspect of the knee shelter down anterior tibial surface. Hematoma extending from upper knee area to groin Dermatologic--see above Neurologic--cranial nerves II through XII grossly intact. Rheumatologic--limited exam Psychiatric--limited ability to respond Principal Diagnosis circulatory shock Left lower extremity ischemia and hematoma Discharge Exam No discharge exam performed. Patient time of : 5am Discharge Data Allergies Allergy/AdvReac Type Severity Reaction Status Date / Time No Known Allergies Allergy Verified 08/03/20 23:35 Consultations 08/04/20 00:46 ED Decision to Admit Stat 08/04/20 08:12 Consult Orthopedic Surgery Routine 08/04/20 09:31 Consult Storyboard Artist Routine 08/04/20 22:00 Consult Palliative Care Routine Ordered Studies 08/03/20 22:46 CT abd pelvis IV con only Stat IMPRESSION: 1. Motion degraded study 2. No evidence of bowel obstruction. No evidence of free air 3. Colonic distention 4. Right-sided nephrolithiasis. No evidence of hydronephrosis 5. Probable cholelithiasis 08/03/20 23:37 US venous doppler LE LT Urgent 08/04/20 13:32 US point of care ultrasound Routine Hospital Course (1) Shock circulatory: Angeline Fagan was admitted to [facility] on August 04 due to left lower extremity hematoma after systemic anticoagulation started due to right acute DVT in the setting of chronic pulmonary emboli. Unfortunately she continued to bleed and her hemoglobin dropped from 12-6.3 with subsequent shock requiring vasopressor support. Despite initial fluid and blood resuscitation she remained hypotensive in continued pain and she was suspected to have lower extremity ischemia. Her family declined surgical or vascular intervention based on the patient's prior wishes and unfortunately she continued to decline. On discussion with her family it was decided to switch her management to provide comfort and symptom relief. She on August 05, 2020 at 5:00am. (2) Hematoma of left lower extremity: (3) Hypothermia: (4) CKD (chronic kidney disease) stage 3, GFR 30-59 ml/min: (5) Diabetes: (6) DVT (deep venous thrombosis): (7) Chronic pulmonary embolism: (8) Aphasia: (9) Coronary artery disease: (10) Hypertension: (11) GERD (gastroesophageal reflux disease): Total Time Total Time Spent Total Time Spent (In Minutes): 15 Total Time Includes: Other ( certificate) Discharge Plan Discharge Items Patient Disposition: Coding Level of Care Code D/C Day Management <30 mins Diagnoses Shock circulatory R57.9 Hematoma of left lower extremity S80.12XA Encounter type: initial encounter Hypothermia T68.XXXA CKD (chronic kidney disease) stage 3, GFR 30-59 ml/min N18.3 Diabetes E11.9 DVT (deep venous thrombosis) I82.409 Chronic pulmonary embolism I27.82 Pulmonary embolism type: unspecified Acute cor pulmonale presence: unspecified Aphasia R47.01 Coronary artery disease I25.10 Hypertension I10 GERD (gastroesophageal reflux disease) K21.9
== END 2020-08-05 06:15 | disposition expired | DRG 813 ==
LOC: ED 22:38 → SUATTDRO 08-04 00:19 → 2W 08-04 00:19 → 1E 08-04 09:15